=== PATIENT | male | born 1950 | race Caucasian/White ===

== ENCOUNTER → 2020-07-31 09:25 | Outpatient (BNVA) | payer MEDICARE, OTHER, SELFPAY | PROVIDERS: PCP Internal Medicine; Visit Provider Internal Medicine | DX: I48.19 Other persistent atrial fibrillation (principal); Z51.81 Encounter for therapeutic drug level monitoring; Z79.01 Long term (current) use of anticoagulants | CPT/HCPCS: 85610 ==

== ENCOUNTER → 2020-09-06 09:15 | Outpatient (BNVA) | payer MEDICARE, OTHER, SELFPAY | PROVIDERS: PCP Internal Medicine; Visit Provider Internal Medicine | DX: I48.19 Other persistent atrial fibrillation (principal); Z51.81 Encounter for therapeutic drug level monitoring; Z79.01 Long term (current) use of anticoagulants | CPT/HCPCS: 85610; 99211 ==

== ENCOUNTER 2020-09-25 16:08 | Observation (INO) | payer MEDICARE, OTHER, SELFPAY ==
[2020-09-25 16:38] VITALS: BP 105/65; PULSE 61; RESP 16; TEMP 36.7; O2SAT 94; BMI 29.5
--- NOTE | 2020-09-25 17:41 | XR_ITS ---
EXAMINATION: XR CHEST CLINICAL INFORMATION: Chest pain COMPARISON: 11/15/2018 TECHNIQUE: Frontal view of the chest was obtained. FINDINGS: There is no convincing evidence for an acute process. This exam is felt to be comparable to previous. Some calcification in cartilage is once again noted. No obvious failure or infiltrate. There is no effusion. XR/XR chest 1V IMPRESSION: No convincing evidence for an acute process.
--- NOTE | 2020-09-25 17:41 | ECG_ITS ---
Test Reason : TACHY Blood Pressure : / mmHG Vent. Rate : 060 BPM Atrial Rate : 060 BPM P-R Int : 198 ms QRS Dur : 084 ms QT Int : 408 ms P-R-T Axes : 070 019 023 degrees QTc Int : 408 ms Normal sinus rhythm Normal ECG When compared with ECG of 17-DEC-2018 12:59, No significant changes seen Referred By: Delfin Cazares Electronically Signed By:REMY SAAVEDRA MD
[2020-09-25 17:51] LABS: MANUAL DIFF FLAG NO
[2020-09-25 17:55] LABS: Basophils Percent Auto 0.6 % (0-2); Eosinophils Absolute Auto 0.1 X10*3/uL (0.0-0.4); Eosinophils Percent Auto 1.9 % (0-4); Hematocrit 39.4 % (42-52); Imm Gran Abs Auto 0.01 X10*3/uL (0.00-0.03); Imm Gran Pct Auto 0.2 % (0.0-0.4); Lymphocytes Absolute Auto 1.9 X10*3/uL (1.2-4.9); Lymphocytes Percent Auto 36.5 % (20-40); Mean Corpuscular HGB Conc 35.5 g/dl (31.0-36.0); Mean Corpuscular Hemoglobin 32.5 pg (27.0-33.0); Mean Corpuscular Volume 91.4 fL (80-98); Mean Platelet Volume 9.9 fL (9.4-12.4); Monocytes Absolute Auto 0.7 X10*3/uL (0.1-1.2); Monocytes Percent Auto 13.5 % (2-11); Neutrophils Absolute Auto 2.4 X10*3/uL (2.0-8.3); Neutrophils Percent Auto 47.3 % (45-73); Platelet Count 184 X10*3/uL (160-400); Red Blood Count 4.31 X10*6/uL (4.60-5.80); Red Cell Distribution Width 12.8 % (11.0-16.0); White Blood Count 5.1 X10*3/uL (4.8-10.8)
[2020-09-25 18:03] LABS: INTERNATIONAL NORM RATIO 2.3 (0.9-1.1); Prothrombin Time 27.5 SEC (10.8-13.0)
[2020-09-25 18:22] LABS: Troponin-I High Sensitivity 15.5 ng/L (<3.5-35.0)
[2020-09-25 19:19] LABS: Alanine Aminotransferase 17 U/L (0-40); Albumin Level 3.9 g/dL (3.5-5.0); Alkaline Phosphatase 58 U/L (39-117); Anion Gap 13 (12-20); Aspartate Amino Transferase 24 U/L (5-37); Bilirubin Direct 0.4 mg/dL (0.0-0.5); Bilirubin Total 0.9 mg/dL (0.0-1.0); Blood Urea Nitrogen 20 mg/dL (9-16); Calcium 8.9 mg/dL (8.4-10.2); Carbon Dioxide 29 mmol/L (22-29); Chloride 99 mmol/L (96-108); Creatinine Clr Calc Pharmacy 84.9; Estimated Glomerular Filt Rate > 60; Glucose Random 99 mg/dL (60-115); Potassium 4.6 mmol/l (3.3-5.1); Sodium 136 mmol/L (135-145); Total Protein 6.2 g/dL (6.5-8.0)
--- NOTE | 2020-09-25 19:21 | ED_ITS ---
HPI - General Adult General Chief complaint: Dizziness Stated complaint: abnormal labs Time Seen by Provider: 09/25/20 17:09 History of Present Illness HPI narrative: 68-year-old male who presents to emergency department for evaluation of near syncopal episode since yesterday morning. Patient states since yesterday morning he has been feeling lightheaded. He states he feels as if he is going to pass out and he feels very weak. He states that these episodes have been intermittent and he had approximately 5-8 episodes since yesterday. These episodes seem to be worse when he is walking or exerting himself and resolves when he rests. He denies any associated symptoms such as chest pain, neck pain, arm pain, back pain, diaphoresis, nausea or vomiting associated with these episodes of lightheadedness. He states that yesterday he did check his blood pressure when he had an episode at was 90/60 with a pulse of 135. States his blood pressure usually runs 120/70 and his pulse usually is in the 65 range. Today again he felt very lightheaded. He took his blood pressure was 120/80 and his pulse was 1 30-135. Patient states he does have a history of paroxysmal atrial fibrillation and does take Coumadin for this. The patient states that today he tried to walk his dog which is something that he does on a regular basis. He states that he usually walks about 1/4 mi. Today when he wonders what he felt very weak and felt as if he was going to passed out. Related Data Previous Rx's Medication Instructions Recorded warfarin 5 mg tablet 5 mg PO DAILY #90 tab 07/31/20 Allergies Allergy/AdvReac Type Severity Reaction Status Date / Time No Known Allergies Allergy Verified 09/06/20 09:16 [No Known Allergies*] Review of Systems Review of Systems: Yes all other systems are reviewed and are negative Constitutional: Constitutional: Reports as per HPI Eyes: Eyes: Reports as per HPI ENT: Reports as per HPI Cardiovascular: Cardiovascular: Reports as per HPI Respiratory: Respiratory: Reports as per HPI Gastrointestinal: Gastrointestinal: Reports as per HPI Genitourinary: Genitourinary: Reports as per HPI Musculoskeletal: Musculoskeletal: Reports as per HPI Integumentary/Breasts: Skin/Breast: Reports as per HPI Neurologic: Reports as per HPI and Reports Abnormal speech present Psychiatric: Psychiatric: Reports as per HPI Allergic/Immunologic: Allergic/Immunologic: Reports as per HPI [facility] Social History Social History Alcohol intake: never Smoked in Last 30 Days: No Use of substances other than those prescribed or required for medical reasons: No Advance Directives: No Advance Directives Information Provided: No Physical Exam Vital Signs: Vital Signs: Last Vital Signs Temp 98.1 F 09/25/20 19:40 Pulse 58 09/25/20 19:40 Resp 19 09/25/20 19:40 BP 120/61 09/25/20 19:40 Pulse Ox 98 09/25/20 19:40 Body Mass Index 29.5 Const: General: cooperative, no acute distress, alert and awake Orientation/consciousness: oriented to person and oriented to place Limitations: no limitations HENMT: Head: Yes normal to inspection, Yes normocephalic and Yes atraumatic Ears: external ears normal Mouth: Normal oral and palatal mucosa present Throat: Yes posterior oropharynx normal Eyes: General: appearance normal, both eyes and all related structures Periorbital: periorbital findings normal Eyelids: Yes eyelids normal Conjunctivae: conjunctivae normal Sclerae: sclerae normal Corneas: corneas normal Pupils: Equal, round and reactive pupils present Direct Ophthalmoscopy: normal light reflex Neck: Neck: Yes normal visual inspection and Yes supple Lymphatic: no lymphadenopathy noted Chest: Chest palpation & inspection: normal inspection of the chest and normal palpation of entire chest wall Resp: Effort & Inspection: normal respiratory effort, abnormal respiratory pattern, no audible wheezes and no respiratory distress Auscultation: clear to auscultation bilaterally, no crackles, no rales, no rhonchi and no wheezes Cardio: Rate: regular rate Rhythm: regular rhythm Heart sounds: S1 normal heart sound present, S2 normal heart sound present and no murmurs GI: Inspection: No distended Palpation (GI): Soft to palpation, nontender, no guarding and No hepatosplenomegaly present Auscultation: normal bowel sounds : General: Yes no CVA tenderness Back/Spine/Pelvis: Back: no CVA tenderness Skin: General skin exam: no rashes or lesions noted Lesions: no lesions Rashes: no rashes Wounds: no wounds Neuro: General: oriented to person and oriented to place Cranial nerves: Yes CN's II-XII intact bilaterally and Yes Equal, round and reactive pupils present Cognition (Neuro): normal cognition Speech: Abnormal speech present Motor exam (neuro): 5/5 motor strength present throughout Extrem: General: Yes normal to inspection, Yes full ROM, Yes no pedal edema and Yes no calf tenderness Psych: Appearance: grossly normal Mental Status: mental status grossly normal Speech and movement: Clear speech present Affect: normal affect Thought process: Normal thought process present Course Course Course Narrative: 70-year-old male who presents to emergency department for evaluation of multiple near syncopal episodes since yesterday morning. The patient does have history of atrial fibrillation and does take Coumadin. He states that yesterday during 1 of his episodes he took his pulse and it ranged from 130-135. Patient has also had new onset of dyspnea on exertion with no other associated symptoms such as chest pain, neck pain, arm pain, nausea, d iaphoresis. The patient's 12 lead EKG was unremarkable. Patient's laboratory evaluation was also unremarkable with a non elevated troponin. I will discuss the patient's presentation with the covering hospitalist. 1954: I did discuss the patient's presentation with the covering hospitalist and the patient will be admitted observation to [facility] for further evaluation of his multiple near syncopal episodes. Medical Decision Making Lab Data Result diagrams: 09/25/20 17:47 09/25/20 18:49 Labs: Lab Results 09/25/20 09/25/20 09/25/20 Range/Units 17:46 17:46 17:47 WBC 5.1 (4.8-10.8) X10*3/uL RBC 4.31 L (4.60-5.80) X10*6/uL Hgb 14.0 (14.0-18.0) g/dl Hct 39.4 L (42-52) % MCV 91.4 (80-98) fL MCH 32.5 (27.0-33.0) pg MCHC 35.5 (31.0-36.0) g/dl RDW 12.8 (11.0-16.0) % Plt Count 184 (160-400) X10*3/uL MPV 9.9 (9.4-12.4) fL Immature Gran % (Auto) 0.2 (0.0-0.4) % Neut % (Auto) 47.3 (45-73) % Lymph % (Auto) 36.5 (20-40) % [place] % (Auto) 13.5 H (2-11) % Eos % (Auto) 1.9 (0-4) % Baso % (Auto) 0.6 (0-2) % Lymph # (Auto) 1.9 (1.2-4.9) X10*3/uL [place] # (Auto) 0.7 (0.1-1.2) X10*3/uL Eos # (Auto) 0.1 (0.0-0.4) X10*3/uL Baso # (Auto) 0.0 (0.0-0.2) X10*3/uL Abs Immat Gran (auto) 0.01 (0.00-0.03) X10*3/uL Absolute Neuts (auto) 2.4 (2.0-8.3) X10*3/uL Absolute Nucleated RBC 0.000 (0.0-0.012) X10*3/uL Nucleated RBC % (auto) 0.0 (0.0-0.2) /100WBC PT (10.8-13.0) SEC INR (0.9-1.1) Sodium Cancelled Potassium Cancelled Chloride Cancelled Carbon Dioxide Cancelled Anion Gap Cancelled BUN Cancelled Creatinine Cancelled Estim Creat Clear Calc Cancelled Estimated GFR Cancelled Random Glucose Cancelled Calcium Cancelled Total Bilirubin Cancelled Direct Bilirubin Cancelled AST Cancelled ALT Cancelled Alkaline Phosphatase Cancelled Troponin I High Sens 15.5 (<3.5-35.0) ng/L Total Protein Cancelled Albumin Cancelled 09/25/20 09/25/20 Range/Units 17:47 18:49 WBC (4.8-10.8) X10*3/uL RBC (4.60-5.80) X10*6/uL Hgb (14.0-18.0) g/dl Hct (42-52) % MCV (80-98) fL MCH (27.0-33.0) pg MCHC (31.0-36.0) g/dl RDW (11.0-16.0) % Plt Count (160-400) X10*3/uL MPV (9.4-12.4) fL Immature Gran % (Auto) (0.0-0.4) % Neut % (Auto) (45-73) % Lymph % (Auto) (20-40) % [place] % (Auto) (2-11) % Eos % (Auto) (0-4) % Baso % (Auto) (0-2) % Lymph # (Auto) (1.2-4.9) X10*3/uL [place] # (Auto) (0.1-1.2) X10*3/uL Eos # (Auto) (0.0-0.4) X10*3/uL Baso # (Auto) (0.0-0.2) X10*3/uL Abs Immat Gran (auto) (0.00-0.03) X10*3/uL Absolute Neuts (auto) (2.0-8.3) X10*3/uL Absolute Nucleated RBC (0.0-0.012) X10*3/uL Nucleated RBC % (auto) (0.0-0.2) /100WBC PT 27.5 H (10.8-13.0) SEC INR 2.3 H (0.9-1.1) Sodium 136 Potassium 4.6 Chloride 99 Carbon Dioxide 29 Anion Gap 13 BUN 20 H Creatinine 0.93 Estim Creat Clear Calc 84.9 Estimated GFR > 60 Random Glucose 99 Calcium 8.9 Total Bilirubin 0.9 Direct Bilirubin 0.4 AST 24 ALT 17 Alkaline Phosphatase 58 Troponin I High Sens (<3.5-35.0) ng/L Total Protein 6.2 L Albumin 3.9 Discharge Plan Discharge Clinical Impression: Near syncope, DAILEY (dyspnea on exertion) Patient Disposition: Admitted as Observation Prescriptions: No Action warfarin 5 mg tablet 5 mg PO DAILY Qty: 90 RF: 0
[2020-09-25 19:40] VITALS: BP 120/61; PULSE 58; RESP 19; TEMP 36.7; O2SAT 98
--- NOTE | 2020-09-25 19:52 | PM.IMHP ---
History of Present Illness Date of Service: 09/25/20 Chief Complaint: near syncope 70 y/o male with PMHX of HTN, HLP, DM and paroxysmal afib on coumadin s/p cardioversion in 2019 who presented from home due to near syncope episodes. Per history provided by the patient for the past 2-3 days has been havign multiple episodes of feeling like almost passing out , feeling fatigue and dizzy for what needs to rest and after 10 minutes feels better. Reports that has happened even when exercising outside. Denies any episodes of chest pain, SOB, nausea or vomiting. No Loss of consciousness. Per ED one time patient took his BP and pulse and found BP was low 90/60 mmHg and HR of 135 bpm. Patient is known to have PAF on coumadin. EKG on presentation is found to be NSR with controlled HR. INR therapeutic 2.3. Decision for admission given. Patient seen and examined at the bedside, laying down in bed in no acute distress. ROS as above otherwise negative. Physical exam unremarkable. PMHX: HTN, HLP, DM, PAF on coumadin s/p cardioversion in 2019 PSX: Colonoscopy with polypectomy Toxic habits: No hx of alcohol abuse, smoking or IVDA Review of Systems ENT: Reports dizziness Neurologic: Reports as per HPI, Reports Abnormal speech present, Reports dizziness and Reports other (near syncope ) [facility] Social History Alcohol intake: never Smoked in Last 30 Days: No Use of substances other than those prescribed or required for medical reasons: No Advance Directives: No Advance Directives Information Provided: No Meds Allergies Allergy/AdvReac Type Severity Reaction Status Date / Time No Known Allergies Allergy Verified 09/06/20 09:16 [No Known Allergies*] Home Medications Medication Instructions Recorded Confirmed Type doxazosin 2 mg PO BEDTIME 09/25/20 09/25/20 History hydrochlorothiazide 1 tab PO DAILY 09/25/20 09/25/20 History insulin lispro [Humalog U-100 SUBCUT 09/25/20 History Insulin] lisinopril 40 mg PO DAILY 09/25/20 09/25/20 History metoprolol tartrate 25 mg PO BID 09/25/20 09/25/20 History simvastatin 40 mg PO BEDTIME 09/25/20 09/25/20 History Physical Exam Vital Signs and Narrative: Vital Signs: Last Vital Signs Temp 98.1 F 09/25/20 19:40 Pulse 58 09/25/20 19:40 Resp 19 09/25/20 19:40 BP 120/61 09/25/20 19:40 Pulse Ox 98 09/25/20 19:40 Body Mass Index 29.5 Const: General: cooperative, comfortable and no acute distress Orientation/consciousness: oriented to person, oriented to place and oriented to time HENMT: Head: Yes normal to inspection Eyes: General: appearance normal, both eyes and all related structures Neck: Yes normal visual inspection Chest: Chest palpation & inspection: normal inspection of the chest Resp: Effort & Inspection: normal respiratory effort Auscultation: clear to auscultation bilaterally Cardio: Jugular venous distension: no JVD Rate: regular rate Rhythm: regular rhythm Heart sounds: S1 normal heart sound present and S2 normal heart sound present GI: Inspection: Yes normal to inspection Skin: General skin exam: no rashes or lesions noted Neuro: General: oriented to person, oriented to place and oriented to time Cognition (Neuro): normal cognition Speech: Abnormal speech present Extrem: General: Yes normal to inspection Psych: Appearance: grossly normal Results Labs CBC and Chem 7: 09/25/20 17:47 09/25/20 18:49 Labs: Laboratory Results - last 24 hr 09/25/20 09/25/20 09/25/20 17:46 17:46 17:47 MCV 91.4 MCH 32.5 MCHC 35.5 RDW 12.8 Plt Count 184 MPV 9.9 Immature Gran % (Auto) 0.2 Neut % (Auto) 47.3 Lymph % (Auto) 36.5 [place] % (Auto) 13.5 H Eos % (Auto) 1.9 Baso % (Auto) 0.6 Lymph # (Auto) 1.9 [place] # (Auto) 0.7 Eos # (Auto) 0.1 Baso # (Auto) 0.0 Abs Immat Gran (auto) 0.01 Absolute Neuts (auto) 2.4 Absolute Nucleated RBC 0.000 Nucleated RBC % (auto) 0.0 PT INR Anion Gap Cancelled Estim Creat Clear Calc Cancelled Estimated GFR Cancelled Random Glucose Cancelled Calcium Cancelled Total Bilirubin Cancelled Direct Bilirubin Cancelled AST Cancelled ALT Cancelled Alkaline Phosphatase Cancelled Troponin I High Sens 15.5 Total Protein Cancelled Albumin Cancelled 09/25/20 09/25/20 17:47 18:49 MCV MCH MCHC RDW Plt Count MPV Immature Gran % (Auto) Neut % (Auto) Lymph % (Auto) [place] % (Auto) Eos % (Auto) Baso % (Auto) Lymph # (Auto) [place] # (Auto) Eos # (Auto) Baso # (Auto) Abs Immat Gran (auto) Absolute Neuts (auto) Absolute Nucleated RBC Nucleated RBC % (auto) PT 27.5 H INR 2.3 H Anion Gap 13 Estim Creat Clear Calc 84.9 Estimated GFR > 60 Random Glucose 99 Calcium 8.9 Total Bilirubin 0.9 Direct Bilirubin 0.4 AST 24 ALT 17 Alkaline Phosphatase 58 Troponin I High Sens Total Protein 6.2 L Albumin 3.9 Imaging Radiologist's Impressions: Impressions Chest X-Ray 09/25/20 17:41 IMPRESSION: No convincing evidence for an acute process. Assessment and Plan (1) Near syncope: Status: Acute Cardiogenic vs Neurogenic No evidence of neurologic deficit on presenation, No loss of bladder or bowel function. Given hx of patient likely cardiogenic in etiology Observation alarm security or surveillance monitor EKG at present NSR. INR therapeutic Continue with rate control for now 2D echo in the am Cardiology evaluation in the am (2) PAF (paroxysmal atrial fibrillation): Status: Acute plan as above (3) Hypertension: Status: Acute continue with home meds (4) Hyperlipidemia: Status: Acute continue with home meds (5) Diabetes: Status: Acute insulin regimen as ordered POCT glucose AC HS
[2020-09-25 21:10] VITALS: BP 126/55; PULSE 66; RESP 16; TEMP 36.7; O2SAT 100
--- NOTE | 2020-09-25 21:53 | PM.EVENT ---
Event Note Date of Service: 09/25/20 Event Note: update: EKG strips in the ER noticed patient to have an episode of narrow complex tachycardia followed by a pause of 1.6 seconds and then resumed to NSR. Possible tachy-tessa syndrome? Patient did not have any symptoms during this event. Cardio consult in the am.
[2020-09-25 23:58] LABS: Influenza A PCR NEGATIVE (Negative); Influenza B PCR NEGATIVE (Negative); Resp Syncy Virus RNA Qual PCR NEGATIVE (Negative); SARS COV2 PCR INHOUSE NEGATIVE (Negative)
[2020-09-26] VITALS (20 sets, daily range): BP systolic 101–170; BP diastolic 57–92; PULSE 53–123; RESP 12–20; TEMP 36.4–36.9; O2SAT 97–100
--- NOTE | 2020-09-26 01:02 | PC.NURSE ---
Pt resting in bed at this time, calm and cooperative with staff. Denies chest pain/nausea/vomiting. Breathing equal and unlabored. Skin warm and well perfused. Pt with insulin pump in place, pt able to manage setting on own. No distress at this time, remains on patient monitor. Vitals stable. Will continue to monitor. Pt aware of boarding status in ED until bed available inpatient.
--- NOTE | 2020-09-26 01:08 | PC.NURSE ---
2245 on 09/25: Previous nurse collected COVID swab and sent it. This RN signed off after confirming with lab it was collected and resulted.
--- NOTE | 2020-09-26 02:32 | PC.NURSE ---
Addendum entered by Brittnee Davidson 09/26/20 02:33: * Edit: Pt states he did feel lightheaded when standing with increased heart rate. Provider to bedside at this time for eval. Original Note: Pt stood up at bedside to use urinal, heart rate went from 50s to 120-130s with standing. Pt asymptomatic during tachycardia. Pt back to bed and heart rate returned back to 50s. Pt remains asymptomatic at this time. Will continue to monitor.
--- NOTE | 2020-09-26 04:19 | PC.NURSE ---
Pt HR back down to 50s-60s. Remains comfortable, breathing equal and unlabored. Will continue to monitor.
[2020-09-26 06:12] LABS: INTERNATIONAL NORM RATIO 2.2 (0.9-1.1); Prothrombin Time 26.7 SEC (10.8-13.0)
--- NOTE | 2020-09-26 06:15 | PC.NURSE ---
Nurse to nurse given to I[facility] RN. Pt to be transported to floor.
[2020-09-26] MEDS: 0.9 % Sodium Chloride Flush 3 ML SYRINGE IVFLUSH ×3 (07:34→18:36)
[2020-09-26] MEDS: Subcutaneous Insulin Pump 1 EACH SUBCUT ×4 (07:34→20:49)
[2020-09-26 08:35] LABS: Glucose, Whole Blood 122 mg/dL (60-115)
--- NOTE | 2020-09-26 08:40 | MHC.CM.PN ---
TORRES 09/26/20 MALE 70 DX NEAR SYNCOPE. He lives with his . He is independent , no A.D. DP home no services family transport. Pt open to VNA services if required. Requested a copy Of his HCP. CM will follow
[2020-09-26] MEDS: hydroCHLOROthiazide 12.5 MG TABLET PO (09:07)
[2020-09-26] MEDS: lisinopriL 40 MG TABLET PO (09:08)
[2020-09-26 09:52] LABS: Basophils Percent Auto 0.7 % (0-2); Eosinophils Absolute Auto 0.1 X10*3/uL (0.0-0.4); Eosinophils Percent Auto 2.8 % (0-4); Hematocrit 41.4 % (42-52); Hemoglobin 14.1 g/dl (14.0-18.0); Imm Gran Abs Auto 0.03 X10*3/uL (0.00-0.03); Imm Gran Pct Auto 0.7 % (0.0-0.4); Lymphocytes Absolute Auto 1.3 X10*3/uL (1.2-4.9); Lymphocytes Percent Auto 29.9 % (20-40); MANUAL DIFF FLAG NO; Mean Corpuscular HGB Conc 34.1 g/dl (31.0-36.0); Mean Corpuscular Hemoglobin 31.3 pg (27.0-33.0); Mean Corpuscular Volume 91.8 fL (80-98); Mean Platelet Volume 10.2 fL (9.4-12.4); Monocytes Absolute Auto 0.6 X10*3/uL (0.1-1.2); Monocytes Percent Auto 13.4 % (2-11); Neutrophils Absolute Auto 2.3 X10*3/uL (2.0-8.3); Neutrophils Percent Auto 52.5 % (45-73); Platelet Count 174 X10*3/uL (160-400); Red Blood Count 4.51 X10*6/uL (4.60-5.80); Red Cell Distribution Width 12.8 % (11.0-16.0); White Blood Count 4.3 X10*3/uL (4.8-10.8)
[2020-09-26 10:29] LABS: Anion Gap 13 (12-20); Blood Urea Nitrogen 17 mg/dL (9-16); Calcium 8.9 mg/dL (8.4-10.2); Carbon Dioxide 30 mmol/L (22-29); Chloride 97 mmol/L (96-108); Creatinine Clr Calc Pharmacy 99.9; Estimated Glomerular Filt Rate > 60; Glucose Random 219 mg/dL (60-115); Magnesium 1.7 mg/dL (1.6-2.6); Potassium 4.7 mmol/l (3.3-5.1); Sodium 135 mmol/L (135-145)
--- NOTE | 2020-09-26 10:36 | HO.PM.IMPN ---
Subjective Subjective Date of Service: 09/26/20 Interval History: seen and examined this AM reports feeling find this AM. dizziness upon exertion denies chest pain, denies sob, denies palp ROS General - no fevers or chills Cardiovascular - no chest pain, no palp Respiratory - no shortness of breath or cough Abdominal- no abdominal pain, nausea, vomiting, diarrhea Physical Exam Vital Signs: Vital Signs: Last Vital Signs Temp 97.7 F 09/26/20 07:15 Pulse 91 09/26/20 07:15 Resp 20 09/26/20 07:15 BP 149/78 H 09/26/20 07:15 Pulse Ox 98 09/26/20 07:15 Body Mass Index 29.5 Const: Other: General - no acute distress, appears comfortable Cardiovascular - s1s2; a. flutter on tele Lungs - normal respiratory effort, clear to auscultation bilaterally, no wheezing Abdomen - soft, nontender, no rebound or guarding Extremities - no edema bilaterally Neuro - awake and alert, no focal deficits Objective Data Current Medications Generic Name Dose Route Start Last Admin Trade Name Freq PRN Reason Stop Dose Admin Atorvastatin Calcium 20 mg 09/26/20 21:00 Atorvastatin Calcium 20 Mg Tablet PO BEDTIME ANNA Doxazosin Mesylate 2 mg 09/26/20 21:00 Doxazosin Mesylate 2 Mg Tablet PO BEDTIME [facility] Protocol Hydrochlorothiazide 12.5 mg 09/26/20 09:00 09/26/20 09:07 Hydrochlorothiazide 12.5 Mg Tablet PO 12.5 mg DAILY ANNA Administration Protocol Insulin Pump 1 each 09/26/20 07:30 09/26/20 07:34 Subcutaneous Insulin Pump SUBCUT 1 each QIDACHS ANNA Administration Lisinopril 40 mg 09/26/20 09:00 09/26/20 09:08 Lisinopril 40 Mg Tablet PO 40 mg DAILY [facility] Administration Protocol Metoprolol Tartrate 25 mg 09/26/20 10:45 Metoprolol Tartrate 25 Mg Tablet PO BID ANNA Protocol Pharmacy Consult 1 each 09/25/20 19:48 Consult Rx Perform Med Rec MISCELLANE ONCE PRN Consult order Sodium Chloride 3 ml 09/26/20 06:58 09/26/20 09:08 0.9 % Sodium Chloride Flush 3 Ml Syringe IVFLUSH 3 ml QSHIFT ANNA Administration Warfarin Sodium 5 mg 09/26/20 18:00 Warfarin Sodium 5 Mg Tablet PO DAILY@1800 [facility] Labs CBC & Chem 7: 09/26/20 09:03 09/26/20 09:03 Assessment and Plan (1) Near syncope: Status: Acute Assessment and Plan: This is a 70 yo M with a PMH of PAF - s/p cardioversion in the past, on coumadin who presents to the hospital with complaints of dizziness which started on the day before admission. He denies any syncopal episodes or associated chest pain, palpitations, sob. 1. Dizziness/PAF likely cardiac in nature tele showing patient converting back and forth from sinus to flutter, in persistance flutter since this AM continue his metorpolol and coumadin cardiology consult keep npo until evaluated by cardiology in case cardioversion is needed 2. DM uses insulin pump continue, monitor poc qidac 3. HTN stable continue hctz, lisinopril, metoprolol 4. HLD statin Full Code DVT pptx, coumadin
[2020-09-26] MEDS: Metoprolol Tartrate 25 MG TABLET PO ×2 (10:46→20:47)
[2020-09-26] MEDS: Magnesium Oxide 400 MG TABLET 800 MG PO (11:00)
[2020-09-26 11:15] LABS: Glucose, Whole Blood 200 mg/dL (60-115)
--- NOTE | 2020-09-26 11:27 | ECG_ITS ---
Test Reason : CP Blood Pressure : / mmHG Vent. Rate : 071 BPM Atrial Rate : 234 BPM P-R Int : 000 ms QRS Dur : 090 ms QT Int : 382 ms P-R-T Axes : 076 001 009 degrees QTc Int : 415 ms Atrial flutter with variable A-V block Abnormal ECG When compared with ECG of 25-SEP-2020 16:23, Atrial flutter has replaced Sinus rhythm ST now depressed in Inferior leads Referred By: Merlin Ricardo Electronically Signed By:MERLIN RICARDO MD
--- NOTE | 2020-09-26 11:40 | PM.CNCAR ---
History of Present Illness History of Present Illness Date of Service: 09/26/20 Requesting physician: Titi Lewis Chief complaint: NEAR SYNCOPE Narrative: Thank you for inviting us on consult on Abraham for recurrent atrial flutter. He is a pleasant 70-year-old man with prior history of atrial flutter status post cardioversion loss November by Dr. Teixeira for symptomatic atrial flutter. He has been maintained on Coumadin ever since. Last few months his INRs have been therapeutic. He came to the hospital yesterday because over the last 2 weeks he has been noticing symptoms of exertional lightheadedness. He said in the recent time his symptoms have got more frequent. He said he could walk only a short distance going out for walk with his dog and he would notice lightheadedness and when he would come home he would take his pulse and blood pressure in his heart rate will be very high in 130. Then after some time it would quickly drop into the 60s. He therefore came to the hospital yesterday. When he came to the ER he was in normal sinus rhythm. However he was having intermittent episodes atrial flutter. Since this a.m. he has been in persistent atrial flutter and he notices that when he went to the bathroom he noticed again symptoms of lightheadedness and rapid heart rate. He denies any syncopal episodes. Prior to this beginning he says in good functional status and he has not had any symptoms of chest discomfort or shortness of breath with exertion. No neurologic symptoms. No other systemic symptoms. Review of Systems Constitutional: Constitutional: Denies body ache(s), Denies chills, Denies fatigue, Denies fever(s) and Denies poor appetite Eyes: Eyes: Reports no additional eye complaints ENT: Reports system reviewed and no additional complaints, except as documented and Reports dizziness Cardiovascular: Cardiovascular: Denies chest pain, Reports lightheadedness, Denies Loss of Consciousness, Denies orthopnea and Denies paroxysmal nocturnal dyspnea Respiratory: Respiratory: Reports no additional respiratory complaints Gastrointestinal: Gastrointestinal: Reports no additional gastrointestinal complaints Neurologic: Reports system reviewed and no additional complaints, except as documented, Reports as per HPI, Reports dizziness and Reports other (near syncope ) Psychiatric: Psychiatric: Reports no additional psychiatric complaints Endocrine: Endocrine: Reports no additional endocrine complaints and Denies fatigue Allergic/Immunologic: Allergic/Immunologic: Reports no additional allergic/immunologic complaints [facility] Past Medical History Medical History Paroxysmal atrial flutter Social History Social History Household Members: Spouse Alcohol intake: never Smoking Status: Former smoker Tobacco Type: Cigarette Years Smoked: NO Smoked in Last 30 Days: No Patient Interested in Nicotine Replacement: No (QUIT 42 YEARS AGO) Patient Given Instructions on How to Stop Smoking: No Use of substances other than those prescribed or required for medical reasons: No Currently Displaying Signs/Symptoms of Drug Intoxication Withdrawal: No Any prior treatment program specific to substance use: No Have you been hit, kicked, punched, or otherwise hurt by someone within the past year? If so, by whom?: No Do you feel safe in your current relationship?: No Is there a partner from a previous relationship who is making you feel unsafe now?: No Are you made to feel afraid or neglected: No Advance Directives: No Advance Directives Information Provided: No Do you have thoughts of harming others: None service: No Current occupational status: retired [employer] Allergies Allergy/AdvReac Type Severity Reaction Status Date / Time No Known Allergies Allergy Verified 09/06/20 09:16 [No Known Allergies*] Home Medications Medication Instructions Recorded Confirmed Type blood-glucose sensor [Dexcom G6 09/25/20 09/25/20 History Sensor] doxazosin 2 mg PO BEDTIME 09/25/20 09/25/20 History hydrochlorothiazide 1 tab PO DAILY 09/25/20 09/25/20 History insulin lispro [Humalog U-100 SUBCUT 09/25/20 History Insulin] insulin pump-infus. set-meter 09/25/20 09/25/20 History lisinopril 40 mg PO DAILY 09/25/20 09/25/20 History metoprolol tartrate 25 mg PO BID 09/25/20 09/25/20 History simvastatin 40 mg PO BEDTIME 09/25/20 09/25/20 History Physical Exam Vital Signs: Vital Signs: Last Vital Signs Temp 97.6 F 09/26/20 10:59 Pulse 58 09/26/20 10:59 Resp 18 09/26/20 10:59 BP 151/57 H 09/26/20 10:59 Pulse Ox 98 12/02/20 10:59 Body Mass Index 29.5 Const: General: cooperative, comfortable, no acute distress, well developed, alert and awake Nutritional Appearance: overweight Orientation/consciousness: patient oriented x3 Limitations: no limitations HENMT: Head: Yes normal to inspection, Yes normocephalic and Yes atraumatic Eyes: General: appearance normal, both eyes and all related structures Neck: Neck: Yes trachea midline, Yes supple and Yes no JVD Chest: Chest palpation & inspection: normal inspection of the chest Resp: Effort & Inspection: normal respiratory effort Auscultation: clear to auscultation bilaterally Cardio: Palpation: normal PMI Rhythm: abnormal rhythm irregularly irregular Heart sounds: S1 normal heart sound present and S2 normal heart sound present GI: Auscultation: normal bowel sounds Skin: General skin exam: no rashes or lesions noted Neuro: General: patient oriented x3 and no focal motor deficits Extrem: General: Yes no clubbing, cyanosis or edema Psych: Appearance: grossly normal Results Labs and Meds Result diagrams: 09/26/20 09:03 09/26/20 09:03 Lab results: Laboratory Results - last 24 hr 09/25/20 09/25/20 09/25/20 17:46 17:46 17:47 WBC 5.1 RBC 4.31 L Hgb 14.0 Hct 39.4 L MCV 91.4 MCH 32.5 MCHC 35.5 RDW 12.8 Plt Count 184 MPV 9.9 Immature Gran % (Auto) 0.2 Neut % (Auto) 47.3 Lymph % (Auto) 36.5 [place] % (Auto) 13.5 H Eos % (Auto) 1.9 Baso % (Auto) 0.6 Lymph # (Auto) 1.9 [place] # (Auto) 0.7 Eos # (Auto) 0.1 Baso # (Auto) 0.0 Abs Immat Gran (auto) 0.01 Absolute Neuts (auto) 2.4 Absolute Nucleated RBC 0.000 Nucleated RBC % (auto) 0.0 PT INR Sodium Cancelled Potassium Cancelled Chloride Cancelled Carbon Dioxide Cancelled Anion Gap Cancelled BUN Cancelled Creatinine Cancelled Estim Creat Clear Calc Cancelled Estimated GFR Cancelled POC Glucose Random Glucose Cancelled Calcium Cancelled Magnesium Total Bilirubin Cancelled Direct Bilirubin Cancelled AST Cancelled ALT Cancelled Alkaline Phosphatase Cancelled Troponin I High Sens 15.5 Total Protein Cancelled Albumin Cancelled Coronavirus (PCR) Influenza Type A (PCR) Influenza Type B (PCR) RSV RNA Qual (PCR) 09/25/20 09/25/20 09/25/20 17:47 18:49 22:57 WBC RBC Hgb Hct MCV MCH MCHC RDW Plt Count MPV Immature Gran % (Auto) Neut % (Auto) Lymph % (Auto) [place] % (Auto) Eos % (Auto) Baso % (Auto) Lymph # (Auto) [place] # (Auto) Eos # (Auto) Baso # (Auto) Abs Immat Gran (auto) Absolute Neuts (auto) Absolute Nucleated RBC Nucleated RBC % (auto) PT 27.5 H INR 2.3 H Sodium 136 Potassium 4.6 Chloride 99 Carbon Dioxide 29 Anion Gap 13 BUN 20 H Creatinine 0.93 Estim Creat Clear Calc 84.9 Estimated GFR > 60 POC Glucose Random Glucose 99 Calcium 8.9 Magnesium Total Bilirubin 0.9 Direct Bilirubin 0.4 AST 24 ALT 17 Alkaline Phosphatase 58 Troponin I High Sens Total Protein 6.2 L Albumin 3.9 Coronavirus (PCR) NEGATIVE Influenza Type A (PCR) NEGATIVE Influenza Type B (PCR) NEGATIVE RSV RNA Qual (PCR) NEGATIVE 09/26/20 09/26/20 09/26/20 06:01 08:31 09:03 WBC 4.3 L RBC 4.51 L Hgb 14.1 Hct 41.4 L MCV 91.8 MCH 31.3 MCHC 34.1 RDW 12.8 Plt Count 174 MPV 10.2 Immature Gran % (Auto) 0.7 H Neut % (Auto) 52.5 Lymph % (Auto) 29.9 [place] % (Auto) 13.4 H Eos % (Auto) 2.8 Baso % (Auto) 0.7 Lymph # (Auto) 1.3 [place] # (Auto) 0.6 Eos # (Auto) 0.1 Baso # (Auto) 0.0 Abs Immat Gran (auto) 0.03 Absolute Neuts (auto) 2.3 Absolute Nucleated RBC 0.000 Nucleated RBC % (auto) 0.0 PT 26.7 H INR 2.2 H Sodium Potassium Chloride Carbon Dioxide Anion Gap BUN Creatinine Estim Creat Clear Calc Estimated GFR POC Glucose 122 H Random Glucose Calcium Magnesium Total Bilirubin Direct Bilirubin AST ALT Alkaline Phosphatase Troponin I High Sens Total Protein Albumin Coronavirus (PCR) Influenza Type A (PCR) Influenza Type B (PCR) RSV RNA Qual (PCR) 09/26/20 09/26/20 09/26/20 09:03 09:03 11:12 WBC RBC Hgb Hct MCV MCH MCHC RDW Plt Count MPV Immature Gran % (Auto) Neut % (Auto) Lymph % (Auto) Ro[place] % (Auto) Eos % (Auto) Baso % (Auto) Lymph # (Auto) [place] # (Auto) Eos # (Auto) Baso # (Auto) Abs Immat Gran (auto) Absolute Neuts (auto) Absolute Nucleated RBC Nucleated RBC % (auto) PT INR Sodium Cancelled 135 Potassium Cancelled 4.7 Chloride Cancelled 97 Carbon Dioxide Cancelled 30 H Anion Gap Cancelled 13 BUN Cancelled 17 H Creatinine Cancelled 0.79 Estim Creat Clear Calc Cancelled 99.9 Estimated GFR Cancelled > 60 POC Glucose 200 H Random Glucose Cancelled 219 H D Calcium Cancelled 8.9 Magnesium 1.7 Total Bilirubin Direct Bilirubin AST ALT Alkaline Phosphatase Troponin I High Sens Total Protein Albumin Coronavirus (PCR) Influenza Type A (PCR) Influenza Type B (PCR) RSV RNA Qual (PCR) EKG on admission shows normal sinus rhythm with no acute ST T wave changes. EKG this morning shows atrial flutter, atypical with variable conduction. Assessment and Plan (1) Near syncope: Status: Acute Symptoms of lightheadedness with exertion related to rapid atrial flutter. See below for management (2) Atrial flutter: Status: Acute Symptomatic recurrent atrial flutter, persistent now. Patient's symptoms correlate with presence of atrial flutter with rapid ventricular response. Would benefit with rhythm control approach. His INRs have been therapeutic over the last few months in the normal range. Safe to undergo cardioversion with low risk for thromboembolic complication. We discussed the risks, benefits, alternatives 2nd opinion to cardioversion and maintaining rhythm. He understands and agrees. Will try initially with chemical cardioversion with flecainide 150 mg x2 doses if needed. If fails conversion with flecainide oral medication, will pursue electrical synchronized cardioversion later in the afternoon. He had his morning breakfast. Hopefully after 6 hours of NPO can proceed with cardioversion. Risks and benefits were discussed with this. He understands and agrees. Continue warfarin therapy. Continue metoprolol therapy. Will follow with the patient.
[2020-09-26] MEDS: Flecainide Acetate 50 MG TABLET 150 MG PO ×2 (11:55→13:06)
--- NOTE | 2020-09-26 15:44 | P.CONAN_ITS ---
HPI - Anesthesia Eval Consult details Narrative: 70 M for cardioversion [facility] Past Medical History Medical History Paroxysmal atrial flutter Social History Social History Household Members: Spouse Alcohol intake: never Smoking Status: Former smoker Tobacco Type: Cigarette Years Smoked: NO Smoked in Last 30 Days: No Patient Interested in Nicotine Replacement: No (QUIT 42 YEARS AGO) Patient Given Instructions on How to Stop Smoking: No Use of substances other than those prescribed or required for medical reasons: No Currently Displaying Signs/Symptoms of Drug Intoxication Withdrawal: No Any prior treatment program specific to substance use: No Have you been hit, kicked, punched, or otherwise hurt by someone within the past year? If so, by whom?: No Do you feel safe in your current relationship?: No Is there a partner from a previous relationship who is making you feel unsafe now?: No Are you made to feel afraid or neglected: No Advance Directives: No Advance Directives Information Provided: No Do you have thoughts of harming others: None service: No Current occupational status: [employer] Allergies Allergy/AdvReac Type Severity Reaction Status Date / Time No Known Allergies Allergy Verified 09/06/20 09:16 [No Known Allergies*] Home Medications Medication Instructions Recorded Confirmed Type blood-glucose sensor [Dexcom G6 09/25/20 09/25/20 History Sensor] doxazosin 2 mg PO BEDTIME 09/25/20 09/25/20 History hydrochlorothiazide 1 tab PO DAILY 09/25/20 09/25/20 History insulin lispro [Humalog U-100 SUBCUT 09/25/20 History Insulin] insulin pump-infus. set-meter 09/25/20 09/25/20 History lisinopril 40 mg PO DAILY 09/25/20 09/25/20 History metoprolol tartrate 25 mg PO BID 09/25/20 09/25/20 History simvastatin 40 mg PO BEDTIME 09/25/20 09/25/20 History Exam Exam Date and Time: September 26, 2020 1544 Height,Weight and Vital Signs: Height 5 ft 11 in Weight 96.162 kg Last Vital Signs Temp 98.4 F 09/26/20 13:57 Pulse 66 09/26/20 13:57 Resp 18 09/26/20 13:57 BP 139/87 09/26/20 13:57 Pulse Ox 98 09/26/20 13:57 Pertinent Lab Results Pertinent Lab Results: Laboratory Tests 09/25/20 09/25/20 09/25/20 17:46 17:46 17:47 WBC 5.1 RBC 4.31 L Hgb 14.0 Hct 39.4 L MCV 91.4 MCH 32.5 MCHC 35.5 RDW 12.8 Plt Count 184 MPV 9.9 Immature Gran % (Auto) 0.2 Neut % (Auto) 47.3 Lymph % (Auto) 36.5 [place] % (Auto) 13.5 H Eos % (Auto) 1.9 Baso % (Auto) 0.6 Lymph # (Auto) 1.9 [place] # (Auto) 0.7 Eos # (Auto) 0.1 Baso # (Auto) 0.0 Abs Immat Gran (auto) 0.01 Absolute Neuts (auto) 2.4 Absolute Nucleated RBC 0.000 Nucleated RBC % (auto) 0.0 PT INR Sodium Cancelled Potassium Cancelled Chloride Cancelled Carbon Dioxide Cancelled Anion Gap Cancelled BUN Cancelled Creatinine Cancelled Estim Creat Clear Calc Cancelled Estimated GFR Cancelled POC Glucose Random Glucose Cancelled Calcium Cancelled Magnesium Total Bilirubin Cancelled Direct Bilirubin Cancelled AST Cancelled ALT Cancelled Alkaline Phosphatase Cancelled Troponin I High Sens 15.5 Total Protein Cancelled Albumin Cancelled Coronavirus (PCR) Influenza Type A (PCR) Influenza Type B (PCR) RSV RNA Qual (PCR) 09/25/20 09/25/20 09/25/20 17:47 18:49 22:57 WBC RBC Hgb Hct MCV MCH MCHC RDW Plt Count MPV Immature Gran % (Auto) Neut % (Auto) Lymph % (Auto) [place] % (Auto) Eos % (Auto) Baso % (Auto) Lymph # (Auto) [place] # (Auto) Eos # (Auto) Baso # (Auto) Abs Immat Gran (auto) Absolute Neuts (auto) Absolute Nucleated RBC Nucleated RBC % (auto) PT 27.5 H INR 2.3 H Sodium 136 Potassium 4.6 Chloride 99 Carbon Dioxide 29 Anion Gap 13 BUN 20 H Creatinine 0.93 Estim Creat Clear Calc 84.9 Estimated GFR > 60 POC Glucose Random Glucose 99 Calcium 8.9 Magnesium Total Bilirubin 0.9 Direct Bilirubin 0.4 AST 24 ALT 17 Alkaline Phosphatase 58 Troponin I High Sens Total Protein 6.2 L Albumin 3.9 Coronavirus (PCR) NEGATIVE Influenza Type A (PCR) NEGATIVE Influenza Type B (PCR) NEGATIVE RSV RNA Qual (PCR) NEGATIVE 09/26/20 09/26/20 09/26/20 06:01 08:31 09:03 WBC 4.3 L RBC 4.51 L Hgb 14.1 Hct 41.4 L MCV 91.8 MCH 31.3 MCHC 34.1 RDW 12.8 Plt Count 174 MPV 10.2 Immature Gran % (Auto) 0.7 H Neut % (Auto) 52.5 Lymph % (Auto) 29.9 [place] % (Auto) 13.4 H Eos % (Auto) 2.8 Baso % (Auto) 0.7 Lymph # (Auto) 1.3 [place] # (Auto) 0.6 Eos # (Auto) 0.1 Baso # (Auto) 0.0 Abs Immat Gran (auto) 0.03 Absolute Neuts (auto) 2.3 Absolute Nucleated RBC 0.000 Nucleated RBC % (auto) 0.0 PT 26.7 H INR 2.2 H Sodium Potassium Chloride Carbon Dioxide Anion Gap BUN Creatinine Estim Creat Clear Calc Estimated GFR POC Glucose 122 H Random Glucose Calcium Magnesium Total Bilirubin Direct Bilirubin AST ALT Alkaline Phosphatase Troponin I High Sens Total Protein Albumin Coronavirus (PCR) Influenza Type A (PCR) Influenza Type B (PCR) RSV RNA Qual (PCR) 09/26/20 09/26/20 09/26/20 09:03 09:03 11:12 WBC RBC Hgb Hct MCV MCH MCHC RDW Plt Count MPV Immature Gran % (Auto) Neut % (Auto) Lymph % (Auto) [place] % (Auto) Eos % (Auto) Baso % (Auto) Lymph # (Auto) [place] # (Auto) Eos # (Auto) Baso # (Auto) Abs Immat Gran (auto) Absolute Neuts (auto) Absolute Nucleated RBC Nucleated RBC % (auto) PT INR Sodium Cancelled 135 Potassium Cancelled 4.7 Chloride Cancelled 97 Carbon Dioxide Cancelled 30 H Anion Gap Cancelled 13 BUN Cancelled 17 H Creatinine Cancelled 0.79 Estim Creat Clear Calc Cancelled 99.9 Estimated GFR Cancelled > 60 POC Glucose 200 H Random Glucose Cancelled 219 H D Calcium Cancelled 8.9 Magnesium 1.7 Total Bilirubin Direct Bilirubin AST ALT Alkaline Phosphatase Troponin I High Sens Total Protein Albumin Coronavirus (PCR) Influenza Type A (PCR) Influenza Type B (PCR) RSV RNA Qual (PCR) Airway Mallampati Class: II TM Dist: >3cm Neck ROM: Full Loose/Missing/Broken Teeth: No Lungs: nl Assessment and Plan Assessment Anesthesia Assessment: Anesthesia Plan Discussed and Chart Reviewed Final Anesthetic Review NPO: Yes ASA Class: II Final Preanesthetic Review: No Changes in Pt Med Stat, Meds/Allgs Chart Reviewed, Consent Obtained/Reviewed and Anes Risks/Benef Reviewed Patient Risk: Low Procedure Risk: Low Anesthetic Plan Anesthetic Plan: MAC: Disposition: Standard PACU
--- NOTE | 2020-09-26 16:02 | MHC.SHP ---
Pre-Procedural Eval Section A The patient is an INPATIENT: Yes Changes since office visit: No Cold of Flu in the past 2 weeks, No New Medical Problems, No Changes in Medication and No Patient answered all questions The History & Physical has been completed within 30 days and I have reviewed it.: Yes Section B Chief Complaint: NEAR SYNCOPE Allergies: Allergies Allergy/AdvReac Type Severity Reaction Status Date / Time No Known Allergies Allergy Verified 09/06/20 09:16 [No Known Allergies*] Plan Patient has been examined and remains a candidate for the planned procedure
--- NOTE | 2020-09-26 16:21 | P.PNCAR_ITS ---
Cardioversion Procedure Note Cardioversion Date of Procedure: 09/26/2020 Ordering Provider: myself Performing Provider: myself Indication for Procedure: symptomatic persistent atrial flutter Pre-Op Diagnosis: persistent atrial flutter Post-Op Diagnosis: normal sinus rhythm Performed with Transesophageal Echo: No History: see the consult note Consent: Verbal and Written consent was obtained from the patient before starting. The patient was made aware of the risk of synchronized cardioversion including risks, benefits, alternatives and 2nd opinion. Procedure: After consent obtained, - - - -[id number]- pads were attached in AP configuration and the patient was sedated by the anesthesia team. Once adequate sedation achieved, patient was delivered 200 joules of biphasic synchronized energy in anteroposterior configuration Complications: none Impression: converted successfully to sinus rhythm Recommendations: 1. Start flecainide 150 mg b.i.d. for maintenance of rhythm starting tomorrow 2. Continue warfarin therapy, maintain target INR between 2 and 3 3. Stat 12 lead EKG post conversion 4. continue other medications.
--- NOTE | 2020-09-26 16:51 | ECG_ITS ---
Test Reason : s/p cardioversion Blood Pressure : / mmHG Vent. Rate : 055 BPM Atrial Rate : 055 BPM P-R Int : 198 ms QRS Dur : 094 ms QT Int : 452 ms P-R-T Axes : 019 -01 026 degrees QTc Int : 432 ms Sinus bradycardia Otherwise normal ECG When compared with ECG of 26-SEP-2020 11:38, Sinus rhythm has replaced Atrial flutter Referred By: Merlin Ricardo Electronically Signed By:MERLIN RICARDO MD
[2020-09-26 17:43] LABS: Glucose, Whole Blood 106 mg/dL (60-115)
[2020-09-26] MEDS: Warfarin Sodium 5 MG TABLET PO (18:35)
[2020-09-26] MEDS: Atorvastatin Calcium 20 MG TABLET PO (20:47)
[2020-09-26 20:48] LABS: Glucose, Whole Blood 173 mg/dL (60-115)
[2020-09-26] MEDS: Doxazosin Mesylate 2 MG TABLET PO (20:48)
[2020-09-27] MEDS: 0.9 % Sodium Chloride Flush 3 ML SYRINGE IVFLUSH ×2 (00:12→09:37)
[2020-09-27 03:45] VITALS: BP 143/71; PULSE 56; RESP 18; TEMP 36; O2SAT 99
[2020-09-27 06:45] LABS: INTERNATIONAL NORM RATIO 1.9 (0.9-1.1)
[2020-09-27 08:00] VITALS: BP 144/65; PULSE 50; RESP 20; TEMP 36.6; O2SAT 99
--- NOTE | 2020-09-27 09:12 | ECG_ITS ---
Test Reason : HX AFIB Blood Pressure : / mmHG Vent. Rate : 051 BPM Atrial Rate : 051 BPM P-R Int : 140 ms QRS Dur : 096 ms QT Int : 460 ms P-R-T Axes : 000 001 025 degrees QTc Int : 423 ms Sinus bradycardia Otherwise normal ECG When compared with ECG of 26-SEP-2020 16:52, Normal sinus rhythm has replaced atrial flutter Referred By: Merlin Ricardo Electronically Signed By:MERLIN RICARDO MD
--- NOTE | 2020-09-27 09:13 | PM.PNCARD ---
Subjective Subjective Date of Service: 09/27/20 Principal diagnosis: Paroxysmal atrial flutter, near syncope Interval history: Patient status post cardioversion yesterday. Maintaining sinus rhythm. He is feeling extremely well with no episodes of lightheadedness with exertion. His INR this morning is 1.9. Review of Systems Constitutional: Reports no additional constitutional complaints Cardiovascular: Reports no additional cardiovascular complaints Respiratory: Reports no additional respiratory complaints Gastrointestinal: Reports no additional gastrointestinal complaints Reports system reviewed and no additional complaints, except as documented and Reports other (near syncope ) Psychiatric: Reports no additional psychiatric complaints Hematologic/Lymphatic: Reports no additional hematologic/lymphatic complaints Allergic/Immunologic: Reports no additional allergic/immunologic complaints Physical Exam Vital Signs: Last Vital Signs Temp 96.8 F 09/27/20 03:45 Pulse 56 09/27/20 03:45 Resp 18 09/27/20 03:45 BP 143/71 H 09/27/20 03:45 Pulse Ox 99 09/27/20 03:45 Body Mass Index 29.5 Const General: cooperative, comfortable, no acute distress, alert and awake Orientation/consciousness: patient oriented x3 HENMT Head: Yes normocephalic and Yes atraumatic Eyes General: appearance normal, both eyes and all related structures Neck Neck: Yes trachea midline, Yes supple and Yes no JVD Chest Chest palpation & inspection: normal inspection of the chest Resp Effort & Inspection: normal respiratory effort Auscultation: clear to auscultation bilaterally Cardio Palpation: normal PMI Rate: regular rate Rhythm: regular rhythm Heart sounds: S1 normal heart sound present and S2 normal heart sound present GI Auscultation: normal bowel sounds Skin General skin exam: no rashes or lesions noted Neuro General: patient oriented x3 Extrem General: Yes no clubbing, cyanosis or edema Psych Appearance: grossly normal Results Labs and Meds Result diagrams: 09/26/20 09:03 09/26/20 09:03 Lab results: Laboratory Results - last 24 hr 09/26/20 09/26/20 09/26/20 09:03 09:03 09:03 WBC 4.3 L RBC 4.51 L Hgb 14.1 Hct 41.4 L MCV 91.8 MCH 31.3 MCHC 34.1 RDW 12.8 Plt Count 174 MPV 10.2 Immature Gran % (Auto) 0.7 H Neut % (Auto) 52.5 Lymph % (Auto) 29.9 [place] % (Auto) 13.4 H Eos % (Auto) 2.8 Baso % (Auto) 0.7 Lymph # (Auto) 1.3 [place] # (Auto) 0.6 Eos # (Auto) 0.1 Baso # (Auto) 0.0 Abs Immat Gran (auto) 0.03 Absolute Neuts (auto) 2.3 Absolute Nucleated RBC 0.000 Nucleated RBC % (auto) 0.0 PT INR Sodium Cancelled 135 Potassium Cancelled 4.7 Chloride Cancelled 97 Carbon Dioxide Cancelled 30 H Anion Gap Cancelled 13 BUN Cancelled 17 H Creatinine Cancelled 0.79 Estim Creat Clear Calc Cancelled 99.9 Estimated GFR Cancelled > 60 POC Glucose Random Glucose Cancelled 219 H D Calcium Cancelled 8.9 Magnesium 1.7 09/26/20 09/26/20 09/26/20 11:12 17:37 20:42 WBC RBC Hgb Hct MCV MCH MCHC RDW Plt Count MPV Immature Gran % (Auto) Neut % (Auto) Lymph % (Auto) [place] % (Auto) Eos % (Auto) Baso % (Auto) Lymph # (Auto) [place] # (Auto) Eos # (Auto) Baso # (Auto) Abs Immat Gran (auto) Absolute Neuts (auto) Absolute Nucleated RBC Nucleated RBC % (auto) PT INR Sodium Potassium Chloride Carbon Dioxide Anion Gap BUN Creatinine Estim Creat Clear Calc Estimated GFR POC Glucose 200 H 106 173 H Random Glucose Calcium Magnesium 09/27/20 05:37 WBC RBC Hgb Hct MCV MCH MCHC RDW Plt Count MPV Immature Gran % (Auto) Neut % (Auto) Lymph % (Auto) [place] % (Auto) Eos % (Auto) Baso % (Auto) Lymph # (Auto) [place] # (Auto) Eos # (Auto) Baso # (Auto) Abs Immat Gran (auto) Absolute Neuts (auto) Absolute Nucleated RBC Nucleated RBC % (auto) PT 23.0 H INR 1.9 H Sodium Potassium Chloride Carbon Dioxide Anion Gap BUN Creatinine Estim Creat Clear Calc Estimated GFR POC Glucose Random Glucose Calcium Magnesium Progress Note: A&P Assessment and plan (1) Atrial flutter: Status: Acute Assessment and Plan: Recurrent atrial flutter with highly symptomatic episodes. Requiring another synchronized cardioversion yesterday. Since then maintaining sinus rhythm. Feeling extremely well. Will continue aggressively with rhythm control approach. Will need antiarrhythmic drug support. Will start arm flecainide 150 mg b.i.d., already received the 1st dose this morning. Obtain a 12 lead EKG today. His INR is mildly subtherapeutic. Agree with Lovenox bridging till INR is greater than 2. I discussed with patient strongly about switching to direct oral anticoagulant strategy. Will think about it. Will need outpatient stress testing with myocardial perfusion imaging to assess for myocardial ischemia in lieu of using flecainide to make sure this is safe. Holter monitor in 1 weeks time. Will arrange for follow-up with Dr. Teixeira in 2 weeks time. Patient can be discharged home today. Will follow up in the clinic in 2 weeks time. Fall Risk Details Current Medications: Current Medications Generic Name Dose Route Start Last Admin Trade Name Freq PRN Reason Stop Dose Admin Atorvastatin Calcium 20 mg 09/26/20 21:00 09/26/20 20:47 Atorvastatin Calcium 20 Mg Tablet PO 20 mg BEDTIME ANNA Administration Doxazosin Mesylate 2 mg 09/26/20 21:00 09/26/20 20:48 Doxazosin Mesylate 2 Mg Tablet PO 2 mg BEDTIME ANNA Administration Protocol Enoxaparin Sodium 95 mg 09/27/20 08:00 Enoxaparin Sodium 100 Mg/Ml Syringe 1 mg/kg (95 mg) SUBCUT Q12H ANNA Flecainide Acetate 150 mg 09/27/20 09:00 Flecainide Acetate 50 Mg Tablet PO BID ANNA Hydrochlorothiazide 12.5 mg 09/26/20 09:00 09/26/20 09:07 Hydrochlorothiazide 12.5 Mg Tablet PO 12.5 mg DAILY ANNA Administration Protocol Insulin Pump 1 each 09/26/20 07:30 09/26/20 20:49 Subcutaneous Insulin Pump SUBCUT 1 each QIDACHS ANNA Administration Lisinopril 40 mg 09/26/20 09:00 09/26/20 09:08 Lisinopril 40 Mg Tablet PO 40 mg DAILY ANNA Administration Protocol Metoprolol Tartrate 25 mg 09/26/20 10:45 09/26/20 20:47 Metoprolol Tartrate 25 Mg Tablet PO 25 mg BID ANNA Administration Protocol Pharmacy Consult 1 each 09/25/20 19:48 Consult Rx Perform Med Rec MISCELLANE ONCE PRN Consult order Sodium Chloride 3 ml 09/26/20 06:58 09/27/20 00:12 0.9 % Sodium Chloride Flush 3 Ml Syringe IVFLUSH 3 ml QSHIFT ANNA Administration Warfarin Sodium 5 mg 09/26/20 18:00 09/26/20 18:35 Warfarin Sodium 5 Mg Tablet PO 5 mg DAILY@1800 ANNA Administration Time Spent With Patient Time: Total time spent is greater than 50% in coordination of care (as documented) at patient's floor/unit and/or counseling patient: Time with patient: 15 - 24 minutes
[2020-09-27] MEDS: Subcutaneous Insulin Pump 1 EACH SUBCUT ×2 (09:34→12:34)
[2020-09-27] MEDS: Enoxaparin Sodium 100 MG/ML SYRINGE 95 MG SUBCUT (09:37)
[2020-09-27] MEDS: Flecainide Acetate 50 MG TABLET 150 MG PO (09:38)
[2020-09-27] MEDS: lisinopriL 40 MG TABLET PO (09:38)
[2020-09-27 09:39] VITALS: PULSE 56
[2020-09-27] MEDS: hydroCHLOROthiazide 12.5 MG TABLET PO (09:39)
--- NOTE | 2020-09-27 11:39 | MHC.CM.PN ---
IMM 09/27/20 Male 70 DC today. INR due tomorrow, Thursday. Patient is aware and will schedule appointment today. Daily INR, until theraputic. The Patient will go to the lab over the weekend. CM attempted to set up with area Homecare agency, no availability until Thursday. Pt is competent to inject lovenox independently. Family will provide transportation.
[2020-09-27 12:00] VITALS: BP 125/60; PULSE 62; RESP 20; TEMP 35.6; O2SAT 99
[2020-09-27 12:09] LABS: Glucose, Whole Blood 203 mg/dL (60-115)
--- NOTE | 2020-09-27 14:13 | P.DS_ITS ---
DS: Providers Provider Date of admission: 09/25/20 20:57 Primary care physician: Louis Elizabeth MD Consults: 09/26/20 10:43 Consult to Cardiology Routine Consulting Provider: Merlin Ricardo Reason for consultation: dizzness, in a. flutter -- going in / out of sinus DS: Diagnosis Discharge Diagnosis (1) Atrial flutter with rapid ventricular response: Status: Acute (2) Near syncope: Status: Acute DS: Medications Discharge Medications Home Medications: Home Medications Medication Instructions Recorded Confirmed Dexcom G6 Sensor 09/25/20 09/25/20 doxazosin 2 mg PO BEDTIME 09/25/20 09/25/20 hydrochlorothiazide 1 tab PO DAILY 09/25/20 09/25/20 insulin lispro [Humalog U-100 SUBCUT 09/25/20 Insulin] insulin pump-infus. set-meter 09/25/20 09/25/20 lisinopril 40 mg PO DAILY 09/25/20 09/25/20 simvastatin 40 mg PO BEDTIME 09/25/20 09/25/20 Previous Rx's Medication Instructions Recorded warfarin 5 mg tablet 5 mg PO DAILY #90 tab 07/31/20 enoxaparin [Lovenox] 100 mg SUBCUT Q12H 7 Days #14 ml 09/27/20 flecainide 150 mg PO BID #60 tab 09/27/20 metoprolol tartrate 25 mg PO BID #60 tab 09/27/20 DS: Summary Hospital Course Hospital Course: patient presented with symptoms of near syncope and this was attributed to paroxysmal atrial flutter with rapid ventricular response. He was seen by Cardiology on the morning after admission who decided that cardioversion was necessary and patient underwent successful cardioversion. He will be discharged home with flecainide 150 b.i.d. along with his metoprolol and Coumadin. Of note his INR is 1.9 in he will be bridged with Lovenox until INR is therapeutic between 2-3. He will follow-up with the Coumadin clinic tomorrow and will come back to [facility] [place] the weekend if needed if the INRs remain subtherapeutic. Time Spent with Patient Time attestation: Total time spent providing and/or coordinating discharge services: Physical Exam Vital Signs: Vital Signs: Last Vital Signs Temp 96.1 F L 09/27/20 12:00 Pulse 62 09/27/20 12:00 Resp 20 09/27/20 12:00 BP 125/60 09/27/20 12:00 Pulse Ox 99 09/27/20 12:00 Body Mass Index 29.5 General - no acute distress, appears comfortable Cardiovascular - regular rate and rhythm, S1-S2 Lungs - normal respiratory effort, clear to auscultation bilaterally, no w heezing Abdomen - soft, nontender, no rebound or guarding Extremities - no edema bilaterally Neuro - awake and alert, no focal deficits DS: Data Data Completed and Pending Labs on day of discharge: Laboratory Last Values WBC 4.3 X10*3/uL (4.8-10.8) L 09/26/20 09:03 RBC 4.51 X10*6/uL (4.60-5.80) L 09/26/20 09:03 Hgb 14.1 g/dl (14.0-18.0) 09/26/20 09:03 Hct 41.4 % (42-52) L 09/26/20 09:03 MCV 91.8 fL (80-98) 09/26/20 09:03 MCH 31.3 pg (27.0-33.0) 09/26/20 09:03 MCHC 34.1 g/dl (31.0-36.0) 09/26/20 09:03 RDW 12.8 % (11.0-16.0) 09/26/20 09:03 Plt Count 174 X10*3/uL (160-400) 09/26/20 09:03 MPV 10.2 fL (9.4-12.4) 09/26/20 09:03 Immature Gran % (Auto) 0.7 % (0.0-0.4) H 09/26/20 09:03 Neut % (Auto) 52.5 % (45-73) 09/26/20 09:03 Lymph % (Auto) 29.9 % (20-40) 09/26/20 09:03 [place] % (Auto) 13.4 % (2-11) H 09/26/20 09:03 Eos % (Auto) 2.8 % (0-4) 09/26/20 09:03 Baso % (Auto) 0.7 % (0-2) 09/26/20 09:03 Lymph # (Auto) 1.3 X10*3/uL (1.2-4.9) 09/26/20 09:03 [place] # (Auto) 0.6 X10*3/uL (0.1-1.2) 09/26/20 09:03 Eos # (Auto) 0.1 X10*3/uL (0.0-0.4) 09/26/20 09:03 Baso # (Auto) 0.0 X10*3/uL (0.0-0.2) 09/26/20 09:03 Abs Immat Gran (auto) 0.03 X10*3/uL (0.00-0.03) 09/26/20 09:03 Absolute Neuts (auto) 2.3 X10*3/uL (2.0-8.3) 09/26/20 09:03 Absolute Nucleated RBC 0.000 X10*3/uL (0.0-0.012) 09/26/20 09:03 Nucleated RBC % (auto) 0.0 /100WBC (0.0-0.2) 09/26/20 09:03 PT 23.0 SEC (10.8-13.0) H 09/27/20 05:37 INR 1.9 (0.9-1.1) H 09/27/20 05:37 Sodium 135 mmol/L (135-145) 09/26/20 09:03 Sodium Cancelled 09/26/20 09:03 Potassium 4.7 mmol/l (3.3-5.1) 09/26/20 09:03 Potassium Cancelled 09/26/20 09:03 Chloride 97 mmol/L (96-108) 09/26/20 09:03 Chloride Cancelled 09/26/20 09:03 Carbon Dioxide 30 mmol/L (22-29) H 09/26/20 09:03 Carbon Dioxide Cancelled 09/26/20 09:03 Anion Gap 13 (12-20) 09/26/20 09:03 Anion Gap Cancelled 09/26/20 09:03 BUN 17 mg/dL (9-16) H 09/26/20 09:03 BUN Cancelled 09/26/20 09:03 Creatinine 0.79 mg/dL (0.5-1.4) 09/26/20 09:03 Creatinine Cancelled 09/26/20 09:03 Estim Creat Clear Calc 99.9 09/26/20 09:03 Estim Creat Clear Calc Cancelled 09/26/20 09:03 Estimated GFR > 60 09/26/20 09:03 Estimated GFR Cancelled 09/26/20 09:03 POC Glucose 203 mg/dL (60-115) H 09/27/20 11:53 Random Glucose 219 mg/dL (60-115) H D 09/26/20 09:03 Random Glucose Cancelled 09/26/20 09:03 Calcium 8.9 mg/dL (8.4-10.2) 09/26/20 09:03 Calcium Cancelled 09/26/20 09:03 Magnesium 1.7 mg/dL (1.6-2.6) 09/26/20 09:03 Total Bilirubin 0.9 mg/dL (0.0-1.0) 09/25/20 18:49 Direct Bilirubin 0.4 mg/dL (0.0-0.5) 09/25/20 18:49 AST 24 U/L (5-37) 09/25/20 18:49 ALT 17 U/L (0-40) 09/25/20 18:49 Alkaline Phosphatase 58 U/L (39-117) 09/25/20 18:49 Troponin I High Sens 15.5 ng/L (<3.5-35.0) 09/25/20 17:46 Total Protein 6.2 g/dL (6.5-8.0) L 09/25/20 18:49 Albumin 3.9 g/dL (3.5-5.0) 09/25/20 18:49 Coronavirus (PCR) NEGATIVE (Negative) 09/25/20 22:57 Influenza Type A (PCR) NEGATIVE (Negative) 09/25/20 22:57 Influenza Type B (PCR) NEGATIVE (Negative) 09/25/20 22:57 RSV RNA Qual (PCR) NEGATIVE (Negative) 09/25/20 22:57 Discharge Plan Discharge Patient Disposition: Home, Self-Care Referrals: [facility] [Other] (Thursday INR) Louis Elizabeth MD [Primary Care Provider] - Discharge Medications: New flecainide 50 mg Tablet 150 mg PO BID Qty: 60 RF: 0 metoprolol tartrate 25 mg Tablet 25 mg PO BID Qty: 60 RF: 0 enoxaparin [Lovenox] 100 mg/mL syringe 100 mg subcut Q12H 7 Days Qty: 14 RF: 0 Continued simvastatin 40 mg tablet 40 mg PO BEDTIME RF: 0 insulin lispro [Humalog U-100 Insulin] 100 unit/mL solution subcut RF: 0 lisinopril 40 mg tablet 40 mg PO DAILY RF: 0 doxazosin 2 mg tablet 2 mg PO BEDTIME RF: 0 hydrochlorothiazide 12.5 mg tablet 1 tab PO DAILY RF: 0 (DME) Dexcom G6 Sensor Device MISCELLANEOUS DAILY RF: 0 (DME) insulin pump-infus. set-meter RF: 0 warfarin 5 mg tablet 5 mg PO DAILY Qty: 90 RF: 0 Discontinued metoprolol tartrate 25 mg tablet 25 mg PO BID RF: 0 Discharge Orders: Discharge Order (Routine); Ordered 09/27/20 Ordered By: Titi Lewis Diet: advance to usual diet Activity on Discharge: As tolerated Discharge Date/Time: 09/27/20 14:14 Other Ambulatory Orders: Prothrombin Time INR (Routine) Timeframe: 20200929 Facility: [facility] - Location: Laboratory Ordered By: Titi Lewis Prothrombin Time INR (Routine) Timeframe: 20200929 Facility: [facility] - Location: Laboratory Ordered By: Titi Lewis Visit Report Forms: Patient Portal Discharge page Care Plan Goals: To stay healthy and out of the hospital. Health Concerns: A. Fib / Flutter Plan of Treatment: A. Fib / Flutter - Take Flecainide 150 mg twice daily. Take Lovenox along with you were Coumadin until your INR levels are between 2 and 3 on 2 consecutive days. After this you may stop Lovenox and continue Coumadin alone.
--- NOTE | 2020-09-27 14:54 | HO.POSTANES ---
Post Anesthesia Evaluation Post Anesthesia Evaluation Vital Signs: Vital Signs Temp Pulse Resp BP Pulse Ox 09/27/20 12:00 96.1 F L 62 20 125/60 99 09/27/20 09:39 56 09/27/20 08:00 97.8 F 50 20 144/65 H 99 09/27/20 03:45 96.8 F 56 18 143/71 H 99 Anesthesia: Monitored Mental Status: Awake Pain Control: Satisfactory Nausea/Vomiting: None Hydration: Adequate Anesthesia-Related Issues: No Anes. Related Issues
== END 2020-09-27 14:14 | disposition home or self-care (01) ==
LOC: HO.ED 19:56 → HO.IMC 09-26 04:36
PROVIDERS: Internal Medicine Cardiovascular Disease; Admitting Provider Internal Medicine; Emergency Provider Emergency Medicine Emergency Medical Services; PCP Internal Medicine; Visit Provider Family Medicine
PROC: 5A2204Z Restoration of Cardiac Rhythm, Single (ICD-10-PCS; principal; 2020-09-26 14:30)
DX: R55 Syncope and collapse (principal); I48.3 Typical atrial flutter; I48.19 Other persistent atrial fibrillation; R07.9 Chest pain, unspecified; I10 Essential (primary) hypertension; E78.5 Hyperlipidemia, unspecified; E11.9 Type 2 diabetes mellitus without complications; Z20.828 Contact with and (suspected) exposure to other viral communicable diseases; Z87.891 Personal history of nicotine dependence; Z98.890 Other specified postprocedural states; Z79.01 Long term (current) use of anticoagulants; Z79.4 Long term (current) use of insulin; Z96.41 Presence of insulin pump (external) (internal); Z79.899 Other long term (current) drug therapy; R00.1 Bradycardia, unspecified
CPT/HCPCS: 0241U; 36415; 71045; 80048; 80076; 82947; 83735; 84484; 85025; 85610; 92960; 93005; 99219; 99285; J1650

== ENCOUNTER → 2020-09-28 10:53 | Outpatient (BNVA) | payer MEDICARE, OTHER, SELFPAY | PROVIDERS: PCP Internal Medicine; Visit Provider Internal Medicine | DX: I48.19 Other persistent atrial fibrillation (principal); Z51.81 Encounter for therapeutic drug level monitoring; Z79.01 Long term (current) use of anticoagulants | CPT/HCPCS: 85610; 99211 ==

== ENCOUNTER → 2020-10-04 11:29 | Outpatient (REF) | payer MEDICARE, OTHER, SELFPAY | LOC: HO.CARD 11:29 | PROVIDERS: Absent Provider Internal Medicine Cardiovascular Disease; PCP Internal Medicine; Referring Provider Internal Medicine; Visit Provider Internal Medicine | DX: I48.92 Unspecified atrial flutter (principal); R00.1 Bradycardia, unspecified; I10 Essential (primary) hypertension; Z79.899 Other long term (current) drug therapy; Z79.01 Long term (current) use of anticoagulants; Z79.4 Long term (current) use of insulin; Z87.891 Personal history of nicotine dependence | CPT/HCPCS: 85610; 93005; 99211; 99212 ==

== ENCOUNTER → 2020-10-08 11:26 | Outpatient (REF) | payer MEDICARE, OTHER, SELFPAY ==
--- NOTE | 2020-10-08 11:29 | ECG_ITS ---
Hook-up date: 2020-10-08 11:48:00 Duration: 27:07:00 Test Indications: PAF Medications: 04298 QRS complexes 15 Ventricular ectopics which represent <1 % of total QRS comp. 3 Supraventricular ectopics which represent <1 % of total QRS comp. * Paced QRS complexs which represent % of total QRS comp. VENTRICULAR ECTOPY 15 Isolated 0 Bigeminal Cycles 0 Couplets 0 Runs 0 Beats in Runs * Beats LONGEST at * BPM at :: -- * Beats FASTEST at * BPM at :: -- SUPRAVENTRICULAR ECTOPY 3 Isolated 0 Couplets 0 Runs 0 Beats in Runs * Beats LONGEST at * BPM at :: -- * Beats FASTEST at * BPM at :: -- HEART RATES 39 MIN at 16:21:06 2020-10-08 50 AVG 77 MAX at 14:51:15 2020-10-08 LONGEST RR 1.6960 secs at 16:22:33 2020-10-08 S-T LEVELS Channel 1 - 128 mm at 11:48:00 2020-10-08 - 128 mm at 11:48:00 2020-10-08 Channel 2 - 128 mm at 11:48:00 2020-10-08 - 128 mm at 11:48:00 2020-10-08 Channel 3 - 128 mm at 03:10:71 -- - 128 mm at 03:10:71 Basic rhythm Normal sinus rhythm No long pause or profound bradycardia Frequent Sinus bradycardia Rare Premature ventricular complexes No diary submitted Referred By: Merlin Ricardo Overread By: MERLIN RICARDO MD
== END ==
LOC: HO.CARD 11:26
PROVIDERS: Visit Provider Internal Medicine Cardiovascular Disease
DX: I48.0 Paroxysmal atrial fibrillation (principal); R06.00 Dyspnea, unspecified; R55 Syncope and collapse
CPT/HCPCS: 93226

== ENCOUNTER → 2020-10-17 10:47 | Outpatient (REF) | payer MEDICARE, OTHER, SELFPAY ==
--- NOTE | 2020-10-17 10:51 | CA_ITS ---
Transthoracic Echocardiogram Patient (Last, First, Middle): Abrahma Vera J Gender: Male Date of : 1950 Age: 70 Procedure Date: 10/17/2020 Procedure Type: Transthoracic Echocardiogram Location: OP Height: 180.34 cm Weight: 95.26 kg BSA: 2.15 m2 Heart Rate: bpm BP: 130 / 80 mmHg Sister Superior: [facility] MD: Jareth Teixeira MD Jacquard Lace Weaver: Merlin Ricardo MD Symptoms: I48.92 - Unspecified atrial flutter Study Quality: Fair ECG Rhythm: Sinus Conclusions: - 1. Normal LV systolic function with grade 2 diastolic dysfunction 2. Moderately dilated left atrium 3. Mild mitral regurgitation 4. [id number]-xi-[id number] elevation of right ventricular systolic pressure 5. No pericardial effusion Findings Procedure Information Contrast agent, definity, is being given per protocol without apparent complications. Left Ventricle Normal left ventricular size, thickness, and systolic function. The visually estimated ejection fraction is between 55-60%. Spectral Doppler is indicative of a pseudonormal filling pattern. E/E prime ratio is >15, consistent with elevated filling pressures. Evidence suggests grade II (moderate) diastolic dysfunction. Right Ventricle Normal right ventricular cavity size and systolic function. Atria The left atrium is moderately dilated. There is lipomatous hypertrophy of the interatrial septum. There is no evidence of interatrial shunt. The right atrium is likely dilated. Aortic Valve Normal aortic valve structure and function. There is no aortic valve stenosis. There is trace (trivial) aortic valve regurgitation. Mitral Valve There is mild anterior and posterior mitral leaflet thickening. There is mild mitral valve regurgitation. There is no mitral valve stenosis. Tricuspid Valve Normal tricuspid valve structure. There is mild tricuspid valve regurgitation. Normal right atrial pressure. Mild to moderate pulmonary hypertension is present. Great Vessels All visible segments of the aorta are normal in size. The pulmonary artery was not well visualized. Venous The inferior vena cava is normal in size and collapses greater than 50% with inspiration. Pericardium/Pleural There is no evidence of pericardial effusion. Prior Study Comparison Changes noted compared to prior study dated: 06/15/2020. LV systolic function has marginally improved Left atrium is moderately enlarged RV systolic pressure is mildly to moderately increased Measurements 2D Linear Measurements RVIDd: 3.77 RVIDd Index: 1.75 IVSd: 0.86 0.6-0.9/0.6-1.0 cm LVIDd: 6.38 3.9-5.3/4.2-5.9 cm LVIDd Index: 2.97 2.4-3.2/2.2-3.1 cm/m2 LVIDs: 4.90 2.0-3.6 cm LVPWd: 0.89 0.7-1.1 cm Ao Root: 3.60 2.1-3.5 cm LA Diam: 5.20 2.7-3.8/3.0-4.0 cm LAIDs Index: 2.42 1.5-2.3 cm/m2 LV Mass: 289.40 67-162/88-224 g LV Mass Index: 134.60 43-95/49-115 g/m2 LVOT Diam: 2.20 3.0+(-)1.3 cm 2D Systolic Function EF 4C: 46.00 >55% EF 2C: 75.00 >55% EF BiP: 62.50 >55% Mitral Valve MV Pk E: 0.88 MV PK A: 0.70 MV Decel Time: 174.00 E/A: 1.20 E'Lateral: 6.09 E'Medial: 4.68 E/E' Med: 18.70 E/E' Lat: 14.40 Aortic Valve AoV Pk Ty: 1.48 AoV Mn Ty: 1.05 AoV VTI: 0.45 AoV Pk Grad: 9.00 Aov Mn Grad: 5.00 VINOD Cont.VTI: 2.77 LVOT LVOT Pk Ty: 1.07 LVOT Mn Ty: 0.78 LVOT VTI: 0.33 LVOT Pk Grad: 5.00 LVOT Mn Grad: 3.00 LVOT Diam: 2.20 LVOT Area: 3.80 Diastolic Function MV Pk E: 0.88 MV Pk A: 0.70 E/A: 1.20 E'Medial: 4.68 E/E' Med: 18.70 E' Laterial: 6.09 E/E' Lat: 14.40 Tricuspid Valve TR Pk Ty: 3.03 TR Pk Grad: 37.00 RA Press: 8.00 RVSP: 45.00 Great Vessels Aorta Ao Root-2D: 3.60 2.0-3.7 cm Ao Asc: 3.40 2.1-3.4 cm Ao Arch: 3.00 Updated in Other Vendor System with Status of Final Merlin Ricardo MD electronically signed on 10/18/2020 2:13:27 PM with status of Final
== END ==
LOC: HO.CARD 10:47
PROVIDERS: Visit Provider Internal Medicine
DX: I48.92 Unspecified atrial flutter (principal); I25.10 Atherosclerotic heart disease of native coronary artery without angina pectoris
CPT/HCPCS: 93306; Q9957

== ENCOUNTER → 2020-10-29 07:49 | Outpatient (REF) | payer MEDICARE, OTHER, SELFPAY ==
--- NOTE | 2020-10-29 | NM_ITS ---
Myocardial perfusion study Indication: Paroxysmal atrial fibrillation to evaluate for myocardial ischemia flecainide therapy Technique: The patient was brought in for a Lexiscan perfusion study on 10/29/2020. Patient performed low-level exercise and was injected 0.4 mg of Lexiscan intravenously. Within a minute of injection, 35 mCi of sestamibi was given intravenously. Images were obtained using the SPECT gamma camera interlaced with the gating device. Images were obtained in supine position. Resting perfusion study was performed on 10/30/2020. Patient was administered 35 mCi of sestamibi intravenously at rest. Images were then obtained in supine position. Images obtained with and without CT attenuation. Total DLP 79 mGy-cm Images were processed with the software and compared side to side in short axis, horizontal long axis and vertical long axis views. Findings: The stress perfusion study showed non attenuated images show normal uptake of radiotracer in all segments of LV myocardium. Attenuation corrected images show mildly reduced uptake in the apex of the LV myocardium. The gated study shows normal LV systolic function with calculated LVEF of 71%. LV cavity is normal in size. The gated study shows normal systolic wall thickening and contraction of segments. Resting study shows no change in perfusion pattern compared to stress perfusion study. Gating at rest reveals normal systolic wall motion with ejection fraction at 70%. The findings are consistent with normal myocardial perfusion. NM/NM vanita perf SPECT rest & str Impression: 1. Myocardial perfusion imaging study shows normal myocardial perfusion 2. Gated LVEF is 70% 3. Transient ischemic dilatation not present EKG nondiagnostic for ischemia
--- NOTE | 2020-10-29 07:53 | CA_ITS ---
Acquisition Time: 2020-10-29 07:58:35 Total Exercise Time: 00:02:00 Test Indications: AFLUTTER Medications: SEE CHART Protocol: LEXISCAN Max HR: 061 BPM 41% of Pred: 148 BPM Max BP: 124/064 mmHG Max Work Load: 1.0 METS Pharmacological stress test using Lexiscan while sitting and kicking his feet. Pt tolerated well. Denies any anginal sx. EKG without any arrhythmias. Non-diagnostic for ischemia. Nuclear images to follow. Normotensive response to test. Test reviewed with Dr. Teixeira. Referred By: Merlin Ricardo Overread By: Mikael Burden
== END ==
LOC: HO.CARD 07:49
PROVIDERS: PCP Internal Medicine; Visit Provider Internal Medicine Cardiovascular Disease
DX: R06.00 Dyspnea, unspecified (principal); I48.0 Paroxysmal atrial fibrillation; I10 Essential (primary) hypertension; R55 Syncope and collapse
CPT/HCPCS: 78452; 93017; A9500; J0280; J2785

== ENCOUNTER → 2020-11-01 11:07 | Outpatient (BNVA) | payer MEDICARE, OTHER, SELFPAY | PROVIDERS: PCP Internal Medicine; Visit Provider Internal Medicine | DX: I48.19 Other persistent atrial fibrillation (principal); Z79.01 Long term (current) use of anticoagulants; Z51.81 Encounter for therapeutic drug level monitoring | CPT/HCPCS: 85610; 99211 ==

== ENCOUNTER → 2020-11-19 09:24 | Outpatient (BNVA) | payer MEDICARE, OTHER, SELFPAY | PROVIDERS: PCP Internal Medicine; Visit Provider Internal Medicine | DX: I48.92 Unspecified atrial flutter (principal); R00.1 Bradycardia, unspecified; I10 Essential (primary) hypertension; Z51.81 Encounter for therapeutic drug level monitoring; Z79.899 Other long term (current) drug therapy | CPT/HCPCS: 99212 ==

== ENCOUNTER → 2020-11-29 11:01 | Outpatient (BNVA) | payer MEDICARE, OTHER, SELFPAY | PROVIDERS: PCP Internal Medicine; Visit Provider Internal Medicine | DX: I48.19 Other persistent atrial fibrillation (principal); Z51.81 Encounter for therapeutic drug level monitoring; Z79.01 Long term (current) use of anticoagulants | CPT/HCPCS: 85610; 99211 ==

== ENCOUNTER 2020-12-04 14:25 | Outpatient (REF) | payer MEDICARE, OTHER, SELFPAY ==
[2020-12-04 15:14] LABS: Influenza A PCR NEGATIVE (Negative); Influenza B PCR NEGATIVE (Negative); Resp Syncy Virus RNA Qual PCR NEGATIVE (Negative); SARS COV2 PCR INHOUSE NEGATIVE (Negative)
== END 2020-12-04 14:26 | disposition home or self-care (01) ==
LOC: HO.LNP 14:25
PROVIDERS: Visit Provider Internal Medicine
DX: Z20.822 Contact with and (suspected) exposure to COVID-19 (principal)
CPT/HCPCS: 0241U

== ENCOUNTER → 2020-12-06 10:37 | Outpatient (BNVA) | payer MEDICARE, OTHER, SELFPAY | PROVIDERS: PCP Internal Medicine; Visit Provider Internal Medicine | DX: I48.19 Other persistent atrial fibrillation (principal); Z51.81 Encounter for therapeutic drug level monitoring; Z79.01 Long term (current) use of anticoagulants | CPT/HCPCS: 85610; 99211 ==

== ENCOUNTER → 2020-12-18 10:26 | Outpatient (BNVA) | payer MEDICARE, OTHER, SELFPAY | PROVIDERS: PCP Internal Medicine; Visit Provider Internal Medicine | DX: I48.92 Unspecified atrial flutter (principal); R00.1 Bradycardia, unspecified; I10 Essential (primary) hypertension | CPT/HCPCS: 93005; 99212 ==

== ENCOUNTER 2021-01-01 10:07 | Outpatient (REF) | payer MEDICARE, OTHER, SELFPAY ==
[2021-01-01 10:41] LABS: MANUAL DIFF FLAG NO
[2021-01-01 10:52] LABS: Basophils Percent Auto 0.7 % (0-2); Eosinophils Absolute Auto 0.2 X10*3/uL (0.0-0.4); Hematocrit 38.2 % (42-52); Hemoglobin 13.2 g/dl (14.0-18.0); Imm Gran Abs Auto 0.02 X10*3/uL (0.00-0.03); Imm Gran Pct Auto 0.5 % (0.0-0.4); Lymphocytes Absolute Auto 1.5 X10*3/uL (1.2-4.9); Mean Corpuscular HGB Conc 34.6 g/dl (31.0-36.0); Mean Corpuscular Hemoglobin 31.3 pg (27.0-33.0); Mean Corpuscular Volume 90.5 fL (80-98); Mean Platelet Volume 9.7 fL (9.4-12.4); Monocytes Absolute Auto 0.7 X10*3/uL (0.1-1.2); Monocytes Percent Auto 15.6 % (2-11); Neutrophils Absolute Auto 1.9 X10*3/uL (2.0-8.3); Neutrophils Percent Auto 43.2 % (45-73); Platelet Count 173 X10*3/uL (160-400); Red Blood Count 4.22 X10*6/uL (4.60-5.80); Red Cell Distribution Width 13.2 % (11.0-16.0); White Blood Count 4.4 X10*3/uL (4.8-10.8)
[2021-01-01 10:56] LABS: Estimated Average Glucose 134 mg/dL; Hemoglobin A1c % 6.3 %
[2021-01-01 11:11] LABS: Alanine Aminotransferase 12 U/L (0-40); Alkaline Phosphatase 57 U/L (39-117); Anion Gap 11 (12-20); Aspartate Amino Transferase 20 U/L (5-37); Bilirubin Total 0.6 mg/dL (0.0-1.0); Blood Urea Nitrogen 15 mg/dL (9-16); Calcium 9.2 mg/dL (8.4-10.2); Carbon Dioxide 30 mmol/L (22-29); Chloride 97 mmol/L (96-108); Cholesterol 161 mg/dL; Estimated Glomerular Filt Rate > 60; Glucose Fasting 120 mg/dL (60-99); HDL Cholesterol 84 mg/dL; LDL Cholesterol Calculated 70 mg/dl; Sodium 133 mmol/L (135-145); Total Protein 6.4 g/dL (6.5-8.0); Triglycerides 35 mg/dL
[2021-01-01 11:31] LABS: Prostate Specific Antigen 0.77 ng/mL (<0.05-4.0)
[2021-01-01 11:37] LABS: Creatinine Urine 56.45 mg/dL; Microalbum/Creatinine Ratio Ur 10.6 ug/mg cr
== END 2021-01-01 10:08 | disposition home or self-care (01) ==
LOC: HO.LAB 10:07
PROVIDERS: PCP Internal Medicine; Visit Provider Internal Medicine
DX: I48.0 Paroxysmal atrial fibrillation (principal); E11.9 Type 2 diabetes mellitus without complications; I10 Essential (primary) hypertension; E78.00 Pure hypercholesterolemia, unspecified; R35.1 Nocturia; Z79.4 Long term (current) use of insulin; Z12.5 Encounter for screening for malignant neoplasm of prostate
CPT/HCPCS: 36415; 80053; 80061; 82043; 83036; 84153; 85025

== ENCOUNTER → 2021-01-11 14:04 | Outpatient (BNVA) | payer MEDICARE, OTHER, SELFPAY | PROVIDERS: PCP Internal Medicine; Visit Provider Internal Medicine | DX: I48.19 Other persistent atrial fibrillation (principal); Z51.81 Encounter for therapeutic drug level monitoring; Z79.01 Long term (current) use of anticoagulants | CPT/HCPCS: 85610; 99211 ==

== ENCOUNTER → 2021-02-08 09:54 | Outpatient (BNVA) | payer MEDICARE, OTHER, SELFPAY | PROVIDERS: PCP Internal Medicine; Visit Provider Internal Medicine | DX: I48.19 Other persistent atrial fibrillation (principal); Z79.01 Long term (current) use of anticoagulants; Z51.81 Encounter for therapeutic drug level monitoring | CPT/HCPCS: 85610; 99211 ==

== ENCOUNTER → 2021-03-08 09:54 | Outpatient (BNVA) | payer MEDICARE, OTHER, SELFPAY | PROVIDERS: PCP Internal Medicine; Visit Provider Internal Medicine | DX: I48.19 Other persistent atrial fibrillation (principal); Z51.81 Encounter for therapeutic drug level monitoring; Z79.01 Long term (current) use of anticoagulants | CPT/HCPCS: 85610; 99211 ==

== ENCOUNTER → 2021-04-05 10:21 | Outpatient (BNVA) | payer MEDICARE, OTHER, SELFPAY | PROVIDERS: PCP Internal Medicine; Visit Provider Internal Medicine | DX: I48.19 Other persistent atrial fibrillation (principal); Z51.81 Encounter for therapeutic drug level monitoring; Z79.01 Long term (current) use of anticoagulants | CPT/HCPCS: 85610; 99211 ==

== ENCOUNTER 2021-05-03 09:45 | Outpatient (REF) | payer MEDICARE, OTHER, SELFPAY ==
[2021-05-03 10:44] LABS: MANUAL DIFF FLAG NO
[2021-05-03 10:51] LABS: Basophils Percent Auto 0.6 % (0-2); Eosinophils Absolute Auto 0.2 X10*3/uL (0.0-0.4); Eosinophils Percent Auto 4.1 % (0-4); Hematocrit 38.9 % (42-52); Hemoglobin 13.5 g/dl (14.0-18.0); Lymphocytes Absolute Auto 1.5 X10*3/uL (1.2-4.9); Lymphocytes Percent Auto 32.9 % (20-40); Mean Corpuscular HGB Conc 34.7 g/dl (31.0-36.0); Mean Corpuscular Hemoglobin 30.9 pg (27.0-33.0); Mean Platelet Volume 9.9 fL (9.4-12.4); Monocytes Absolute Auto 0.7 X10*3/uL (0.1-1.2); Monocytes Percent Auto 14.5 % (2-11); Neutrophils Absolute Auto 2.2 X10*3/uL (2.0-8.3); Neutrophils Percent Auto 47.9 % (45-73); Platelet Count 203 X10*3/uL (160-400); Red Blood Count 4.37 X10*6/uL (4.60-5.80); Red Cell Distribution Width 12.9 % (11.0-16.0); White Blood Count 4.6 X10*3/uL (4.8-10.8)
[2021-05-03 11:13] LABS: Estimated Average Glucose 140 mg/dL; Hemoglobin A1c % 6.5 %
[2021-05-03 11:14] LABS: Creatinine Urine 44.29 mg/dL; Microalbumin Urine < 5.0 mg/L
[2021-05-03 11:18] LABS: Anion Gap 11 (12-20); Blood Urea Nitrogen 12 mg/dL (9-16); Calcium 9.4 mg/dL (8.4-10.2); Carbon Dioxide 30 mmol/L (22-29); Chloride 92 mmol/L (96-108); Estimated Glomerular Filt Rate > 60; Glucose Random 167 mg/dL (60-115); Potassium 4.9 mmol/L (3.3-5.1); Sodium 128 mmol/L (135-145)
== END 2021-05-03 09:46 | disposition home or self-care (01) ==
LOC: HO.LAB 09:45
PROVIDERS: PCP Internal Medicine; Visit Provider Internal Medicine
DX: D64.9 Anemia, unspecified (principal); Z51.81 Encounter for therapeutic drug level monitoring; Z79.01 Long term (current) use of anticoagulants
CPT/HCPCS: 36415; 80048; 82043; 83036; 85025; 85610; 99211

== ENCOUNTER → 2021-05-27 12:44 | Outpatient (REF) | payer MEDICARE, OTHER, SELFPAY ==
--- NOTE | 2021-05-27 12:47 | ECG_ITS ---
Hook-up date: 2021-05-27 13:16:00 Duration: 24:59:00 Test Indications: PAF Medications: 40478 QRS complexes 13 Ventricular ectopics which represent <1 % of total QRS comp. 65 Supraventricular ectopics which represent <1 % of total QRS comp. * Paced QRS complexs which represent % of total QRS comp. VENTRICULAR ECTOPY 13 Isolated 0 Bigeminal Cycles 0 Couplets 0 Runs 0 Beats in Runs * Beats LONGEST at * BPM at :: -- * Beats FASTEST at * BPM at :: -- SUPRAVENTRICULAR ECTOPY 65 Isolated 0 Couplets 0 Runs 0 Beats in Runs * Beats LONGEST at * BPM at :: -- * Beats FASTEST at * BPM at :: -- HEART RATES 39 MIN at 05:09:37 2021-05-28 56 AVG 99 MAX at 17:03:39 2021-05-27 LONGEST RR 1.6800 secs at 08:59:15 2021-05-28 S-T LEVELS Channel 1 - 128 mm at 13:16:00 2021-05-27 - 128 mm at 13:16:00 2021-05-27 Channel 2 - 128 mm at 13:16:00 2021-05-27 - 128 mm at 13:16:00 2021-05-27 Channel 3 - 128 mm at 03:23:51 -- - 128 mm at 03:23:51 Underlying rhythm is sinus bradycardia; Average ventricular rate 56/min; range 39-99/min; Rare Premature atrial complexes , Premature ventricular complexes ; No sustained arrhythmias; Patient did not report any symptoms in the diary Referred By: Basilio Deluna Overread By: BASILIO DELUNA
== END ==
LOC: HO.CARD 12:44
PROVIDERS: Visit Provider Internal Medicine
DX: I48.92 Unspecified atrial flutter (principal)
CPT/HCPCS: 93225; 93226

== ENCOUNTER → 2021-05-31 10:19 | Outpatient (BNVA) | payer MEDICARE, OTHER, SELFPAY | PROVIDERS: PCP Internal Medicine; Visit Provider Internal Medicine | DX: I48.0 Paroxysmal atrial fibrillation (principal); Z51.81 Encounter for therapeutic drug level monitoring; Z79.01 Long term (current) use of anticoagulants | CPT/HCPCS: 85610; 99211 ==

== ENCOUNTER → 2021-06-18 10:18 | Outpatient (BNVA) | payer MEDICARE, OTHER, SELFPAY | PROVIDERS: PCP Internal Medicine; Referring Provider Internal Medicine; Visit Provider Internal Medicine | DX: I48.92 Unspecified atrial flutter (principal); R00.1 Bradycardia, unspecified; I10 Essential (primary) hypertension; Z79.01 Long term (current) use of anticoagulants; Z79.899 Other long term (current) drug therapy | CPT/HCPCS: 99212 ==

== ENCOUNTER → 2021-06-28 10:22 | Outpatient (BNVA) | payer MEDICARE, OTHER, SELFPAY | PROVIDERS: PCP Internal Medicine; Visit Provider Internal Medicine | DX: I48.0 Paroxysmal atrial fibrillation (principal); Z51.81 Encounter for therapeutic drug level monitoring; Z79.01 Long term (current) use of anticoagulants | CPT/HCPCS: 85610; 99211 ==

== ENCOUNTER 2021-07-08 06:56 | Day surgery (SDC) | payer MEDICARE, OTHER, SELFPAY ==
[2021-07-03 15:42] VITALS: BMI 31.4
--- NOTE | 2021-07-05 09:26 | P.CONAN_ITS ---
Documented by User: Millie Giron NP 07/05/21 14:08 HPI - Anesthesia Eval Consult details Narrative: 71yo M for Colonoscopy Warfarin for afib Chronic hyponatremia - Lytes DOS Insulin pump in situ PMFSH Active Problems Active Problems: All Active Problems (Updated 07/03/21 @ 15:34 by Cesilia Gonsales RN) Current use of anticoagulant therapy (Acute) Near syncope (Acute) DAILEY (dyspnea on exertion) (Acute) PAF (paroxysmal atrial fibrillation) (Acute) Hypertension (Acute) Hyperlipidemia (Acute) Diabetes (Acute) Atrial flutter with rapid ventricular response (Acute) Paroxysmal atrial flutter (Acute) Essential hypertension (Acute) Sinus bradycardia (Acute) Past Medical History Medical History Diabetes Elevated cholesterol Essential hypertension Paroxysmal atrial flutter Sinus bradycardia Family History Family History Father Colon cancer Mother Colon cancer Surgical History Surgical History H/O colonoscopy History of cardiac radiofrequency ablation (RFA) (~11/22/20) History of cardioversion (~11/2018) Hx of hernia repair Hx of left inguinal hernia repair Hx of shoulder surgery Social History Social History Household Members: Spouse Alcohol intake: never Patient Tobacco Use Status: Former Tobacco user Quit Date: >10 yr ago Tobacco use type: Cigarette Use of substances other than those prescribed or required for medical reasons: No Advance Directives Information Provided: No service: No Current occupational status: retired No [employer] Allergies Allergy/AdvReac Type Severity Reaction Status Date / Time No Known Allergies Allergy Verified 06/28/21 10:24 [No Known Allergies*] Home Medications Medication Instructions Recorded Confirmed Last Taken Type blood-glucose sensor (Dexcom G6 09/25/20 05/31/21 Unknown History Sensor) doxazosin 2 mg tablet 2 mg PO BEDTIME 09/25/20 07/03/21 Unknown History hydrochlorothiazide 12.5 mg tablet 1 tab PO DAILY 09/25/20 07/03/21 Unknown History insulin lispro 100 unit/mL SUBCUT 09/25/20 06/18/21 Unknown History subcutaneous solution (Humalog U-100 Insulin) insulin pump-infus. set-meter 09/25/20 06/18/21 Unknown History lisinopril 40 mg tablet 40 mg PO DAILY 09/25/20 07/03/21 Unknown History simvastatin 40 mg tablet 40 mg PO BEDTIME 09/25/20 07/03/21 Unknown History warfarin 5 mg tablet 5 mg PO DAILY tab 10/04/20 07/03/21 Unknown History Exam Exam Date and Time: July 05, [id number] Height,Weight and Vital Signs: Height 5 ft 11 in Weight 102 kg Pertinent Lab Results Pertinent Lab Results: Laboratory Tests 05/03/21 05/03/21 10:05 10:05 WBC 4.6 L Hgb 13.5 L Hct 38.9 L Plt Count 203 Carbon Dioxide 30 H BUN 12 Creatinine 0.83 Assessment and Plan Assessment Anesthesia Assessment: Chart Reviewed Documented by User: Jazmyne Templeton MD 07/08/21 08:10 [facility] Past Medical History Medical History Diabetes Elevated cholesterol Essential hypertension Paroxysmal atrial flutter Sinus bradycardia Family History Family History Father Colon cancer Mother Colon cancer Family history of problems with anesthesia: No Surgical History Surgical History H/O colonoscopy History of cardiac radiofrequency ablation (RFA) (~11/22/20) History of cardioversion (~11/2018) Hx of hernia repair Hx of left inguinal hernia repair Hx of shoulder surgery History of Problems with Anesthesia: No Social History Social History Household Members: Spouse Alcohol intake: never Patient Tobacco Use Status: Former Tobacco user Quit Date: >10 yr ago Tobacco use type: Cigarette Use of substances other than those prescribed or required for medical reasons: No Advance Directives Information Provided: No service: No Current occupational status: retired Meds Allergies Allergy/AdvReac Type Severity Reaction Status Date / Time No Known Allergies Allergy Verified 06/28/21 10:24 [No Known Allergies*] Home Medications Medication Instructions Recorded Confirmed Last Taken Type blood-glucose sensor (Dexcom G6 09/25/20 05/31/21 Unknown History Sensor) doxazosin 2 mg tablet 2 mg PO BEDTIME 09/25/20 07/03/21 Unknown History hydrochlorothiazide 12.5 mg tablet 1 tab PO DAILY 09/25/20 07/03/21 Unknown History insulin lispro 100 unit/mL SUBCUT 09/25/20 06/18/21 Unknown History subcutaneous solution (Humalog U-100 Insulin) insulin pump-infus. set-meter 09/25/20 06/18/21 Unknown History lisinopril 40 mg tablet 40 mg PO DAILY 09/25/20 07/03/21 Unknown History simvastatin 40 mg tablet 40 mg PO BEDTIME 09/25/20 07/03/21 Unknown History warfarin 5 mg tablet 5 mg PO DAILY tab 10/04/20 07/03/21 Unknown History Exam Airway Mallampati Class: II TM Dist: >3cm Neck ROM: Full Assessment and Plan Assessment Anesthesia Assessment: Anesthesia Plan Discussed Final Anesthetic Review Family History of Problems with Anesthesia: No History of Problems with Anesthesia: No NPO: Yes ASA Class: III Patient Risk: Intermediate Procedure Risk: Low Assessment/Block/Sedation in SS: Assess/Block/Sedation-SS Anesthetic Plan Anesthetic Plan: MAC:
[2021-07-08 07:37] LABS: Prothrombin Time 11.4 SEC (9.9-13.0)
[2021-07-08 07:45] LABS: Anion Gap 16 (12-20); Carbon Dioxide 24 mmol/L (22-29); Chloride 94 mmol/L (96-108); Potassium 4.6 mmol/L (3.3-5.1); Sodium 129 mmol/L (135-145)
[2021-07-08 08:05] VITALS: BP 138/66; PULSE 52; RESP 16; TEMP 36.8; O2SAT 98
[2021-07-08] MEDS: Lactated Ringers 1,000 ML 100 ML IVCONT (08:12)
[2021-07-08 09:12] VITALS: BP 106/52; PULSE 54; RESP 16; TEMP 36.9; O2SAT 97
--- NOTE | 2021-07-08 09:13 | P.BOP_ITS ---
Brief Operative Note Date of Service: 07/08/21 Pre-op diagnosis: Screening Post-op diagnosis: other (Diverticulosis) Procedure: Colonoscopy to the cecum and TI Surgeon: Girma Padron Anesthesia: MAC Was an Automotive Diagnostic Technician used for this Procedure?: No Estimated blood loss (mL): 0 Pathology: none sent Condition: stable Disposition: PACU
[2021-07-08 09:27] VITALS: BP 125/63; PULSE 55; RESP 16; O2SAT 97
--- NOTE | 2021-07-08 18:57 | OP_ITS ---
SURGEON: Girma Padron MD INDICATIONS: The patient presents for followup of personal history of tubular adenoma of the colon, family history of colon cancer, and colorectal cancer screening. Full consent has been obtained from him for this, including risks of bleeding and perforation. PREOPERATIVE DIAGNOSIS: POSTOPERATIVE DIAGNOSIS: PROCEDURE PERFORMED: Colonoscopy to cecum and terminal ileum. ESTIMATED BLOOD LOSS: COMPLICATIONS: ANESTHESIA: Monitored anesthesia care. ASSISTANTS: SPECIMENS: PREOPERATIVE DIAGNOSES: Personal history of tubular adenoma, colorectal cancer screening, and family history of colon cancer. POSTOPERATIVE DIAGNOSES: Personal history of tubular adenoma, colorectal cancer screening, and family history of colon cancer, diverticulosis and internal hemorrhoids. DESCRIPTION OF PROCEDURE: The patient was placed in the left lateral decubitus position. The digital rectal exam revealed no abnormalities. The Olympus video pediatric colonoscope was entered into the rectum and advanced easily to the cecum. Once in the cecum, I did identify normal-appearing cecal pouch with appendiceal orifice and a normal-appearing ileocecal valve. The terminal ileum was cannulated and appeared normal. The scope was withdrawn back in the colon. The entire cecum was well visualized. In the cecum, was an area of some scarring consistent with his previous polypectomy, but I did not see any sign of residual polyp tissue. The scope was then slowly withdrawn assessing all mucosal surfaces carefully. Preparation was excellent. I did not visualize any polyps, colitis, nor angiodysplasia. There was a mild amount of sigmoid diverticulosis. In the rectum, scope was retroflexed visualizing internal hemorrhoids, but no other pathology. The rectal mucosa appeared normal. The scope was straightened out and withdrawn from the patient. He tolerated the procedure well and was returned to the recovery area in stable condition. IMPRESSION: 1. Diverticulosis. 2. Internal hemorrhoids. PLAN: Given his previous history and family history, I would recommend a followup colonoscopy in 3 years for further screening. He was advised to resume his Coumadin today at his normal dose and have it adjusted either by Dr. Elizabeth or by the [facility]. This has been discussed with his . MD BALBINA Lange/VINCENT / [id number]
== END 2021-07-08 09:52 | disposition home or self-care (01) ==
PROVIDERS: Nurse Practitioner; PCP Internal Medicine; Visit Provider Internal Medicine
PROC: 0DJD8ZZ Inspection of Lower Intestinal Tract, Via Natural or Artificial Opening Endoscopic (ICD-10-PCS; CPT 45378; principal; 2021-07-08 08:20)
DX: Z12.11 Encounter for screening for malignant neoplasm of colon (principal); Z80.0 Family history of malignant neoplasm of digestive organs; Z86.010 Personal history of colon polyps; K57.30 Diverticulosis of large intestine without perforation or abscess without bleeding; K64.8 Other hemorrhoids; I10 Essential (primary) hypertension; I48.91 Unspecified atrial fibrillation; Z79.01 Long term (current) use of anticoagulants; E11.8 Type 2 diabetes mellitus with unspecified complications; Z79.4 Long term (current) use of insulin; Z96.41 Presence of insulin pump (external) (internal); Z79.899 Other long term (current) drug therapy; Z87.440 Personal history of urinary (tract) infections
CPT/HCPCS: G0105; 36415; 80051; 85610

== ENCOUNTER → 2021-07-26 10:37 | Outpatient (BNVA) | payer MEDICARE, OTHER, SELFPAY | PROVIDERS: PCP Internal Medicine; Visit Provider Internal Medicine | DX: Z13.89 Encounter for screening for other disorder (principal) | CPT/HCPCS: 85610; 99211 ==

== ENCOUNTER 2021-07-26 10:53 | Outpatient (REF) | payer MEDICARE, OTHER, SELFPAY ==
[2021-07-26 11:27] LABS: Estimated Average Glucose 137 mg/dL; Hemoglobin A1c % 6.4 %
== END 2021-07-26 10:54 | disposition home or self-care (01) ==
LOC: HO.LAB 10:53
PROVIDERS: PCP Internal Medicine; Visit Provider Pediatrics
DX: E10.42 Type 1 diabetes mellitus with diabetic polyneuropathy (principal); I48.0 Paroxysmal atrial fibrillation; Z51.81 Encounter for therapeutic drug level monitoring; Z79.01 Long term (current) use of anticoagulants; Z96.41 Presence of insulin pump (external) (internal)
CPT/HCPCS: 36415; 83036; 85610; 99211

== ENCOUNTER → 2021-08-23 10:26 | Outpatient (BNVA) | payer MEDICARE, OTHER, SELFPAY | PROVIDERS: PCP Internal Medicine; Visit Provider Internal Medicine | DX: I48.0 Paroxysmal atrial fibrillation (principal); Z51.81 Encounter for therapeutic drug level monitoring; Z79.01 Long term (current) use of anticoagulants | CPT/HCPCS: 85610; 99211 ==

== ENCOUNTER → 2021-09-06 13:32 | Outpatient (BNVA) | payer MEDICARE, OTHER, SELFPAY | PROVIDERS: PCP Internal Medicine; Visit Provider Internal Medicine | DX: I48.0 Paroxysmal atrial fibrillation (principal); Z51.81 Encounter for therapeutic drug level monitoring; Z79.01 Long term (current) use of anticoagulants | CPT/HCPCS: 85610; 99211 ==

== ENCOUNTER → 2021-10-03 10:19 | Outpatient (BNVA) | payer MEDICARE, OTHER, SELFPAY | PROVIDERS: PCP Internal Medicine; Visit Provider Internal Medicine | DX: I48.0 Paroxysmal atrial fibrillation (principal); Z51.81 Encounter for therapeutic drug level monitoring; Z79.01 Long term (current) use of anticoagulants | CPT/HCPCS: 85610; 99211 ==

== ENCOUNTER 2021-10-31 09:55 | Outpatient (REF) | payer MEDICARE, OTHER, SELFPAY ==
[2021-10-31 10:17] LABS: MANUAL DIFF FLAG NO
[2021-10-31 10:46] LABS: Basophils Percent Auto 0.7 % (0-2); Eosinophils Absolute Auto 0.2 X10*3/uL (0.0-0.4); Hematocrit 39.9 % (42.0-52.0); Hemoglobin 13.9 g/dl (14.0-18.0); Imm Gran Abs Auto 0.01 X10*3/uL (0.00-0.03); Imm Gran Pct Auto 0.2 % (0.0-0.4); Lymphocytes Absolute Auto 1.5 X10*3/uL (1.2-4.9); Lymphocytes Percent Auto 33.2 % (20-40); Mean Corpuscular HGB Conc 34.8 g/dl (31.0-36.0); Mean Corpuscular Volume 88.9 fL (80.0-98.0); Mean Platelet Volume 9.9 fL (9.4-12.4); Monocytes Absolute Auto 0.6 X10*3/uL (0.1-1.2); Monocytes Percent Auto 13.4 % (2-11); Neutrophils Absolute Auto 2.2 x10*3/uL (2.0-8.3); Neutrophils Percent Auto 48.5 % (45-73); Platelet Count 176 X10*3/uL (160-400); Red Blood Count 4.49 X10*6/uL (4.60-5.80); Red Cell Distribution Width 12.8 % (11.0-16.0); White Blood Count 4.5 X10*3/uL (4.8-10.8)
[2021-10-31 10:58] LABS: Estimated Average Glucose 134 mg/dL; Hemoglobin A1c % 6.3 %
[2021-10-31 11:18] LABS: Creatinine Urine 44.38 mg/dL; Microalbumin Urine < 5.0 mg/L
[2021-10-31 11:20] LABS: Alanine Aminotransferase 14 U/L (0-40); Alkaline Phosphatase 56 U/L (39-117); Anion Gap 11 (12-20); Aspartate Amino Transferase 19 U/L (5-37); Bilirubin Total 0.7 mg/dL (0.0-1.0); Blood Urea Nitrogen 15 mg/dL (9-16); Calcium 9.6 mg/dL (8.4-10.2); Carbon Dioxide 30 mmol/L (22-29); Chloride 98 mmol/L (96-108); Cholesterol 161 mg/dL; Estimated Glomerular Filt Rate > 60; Glucose Fasting 154 mg/dL (60-99); HDL Cholesterol 76 mg/dL; LDL Cholesterol Calculated 77 mg/dl; Potassium 4.7 mmol/L (3.3-5.1); Sodium 134 mmol/L (135-145); Total Protein 6.5 g/dL (6.5-8.0); Triglycerides 40 mg/dL
[2021-10-31 11:41] LABS: Prostate Specific Antigen 0.72 ng/mL (<0.05-4.0)
== END 2021-10-31 09:56 | disposition home or self-care (01) ==
LOC: HO.LAB 09:55
PROVIDERS: PCP Internal Medicine; Visit Provider Internal Medicine
DX: Z12.5 Encounter for screening for malignant neoplasm of prostate (principal); I48.0 Paroxysmal atrial fibrillation; Z51.81 Encounter for therapeutic drug level monitoring; Z79.01 Long term (current) use of anticoagulants; N40.0 Benign prostatic hyperplasia without lower urinary tract symptoms; E11.9 Type 2 diabetes mellitus without complications; E78.00 Pure hypercholesterolemia, unspecified; I10 Essential (primary) hypertension
CPT/HCPCS: 36415; 80053; 80061; 82043; 83036; 84153; 85025; 85610; 99211

== ENCOUNTER 2021-11-26 11:35 | Outpatient (REF) | payer MEDICARE, OTHER, SELFPAY ==
[2021-11-26 12:12] LABS: IDNOW Serial# 08D9AD1C
[2021-11-26 12:13] LABS: COVID-19 Test Negative (Negative)
== END 2021-11-26 11:36 | disposition home or self-care (01) ==
LOC: HO.LNP 11:35
PROVIDERS: PCP Internal Medicine; Visit Provider Internal Medicine
DX: Z20.822 Contact with and (suspected) exposure to COVID-19 (principal); R09.89 Other specified symptoms and signs involving the circulatory and respiratory systems
CPT/HCPCS: 87635

== ENCOUNTER → 2021-11-28 10:24 | Outpatient (BNVA) | payer MEDICARE, OTHER, SELFPAY | PROVIDERS: PCP Internal Medicine; Visit Provider Internal Medicine | DX: I48.0 Paroxysmal atrial fibrillation (principal); Z51.81 Encounter for therapeutic drug level monitoring; Z79.01 Long term (current) use of anticoagulants | CPT/HCPCS: 85610; 99211 ==

== ENCOUNTER → 2021-12-10 10:17 | Outpatient (BNVA) | payer MEDICARE, OTHER, SELFPAY | PROVIDERS: PCP Internal Medicine; Referring Provider Internal Medicine; Visit Provider Internal Medicine | DX: I48.92 Unspecified atrial flutter (principal); I10 Essential (primary) hypertension; R00.1 Bradycardia, unspecified | CPT/HCPCS: 93005; 99212 ==

== ENCOUNTER → 2021-12-26 10:24 | Outpatient (BNVA) | payer MEDICARE, OTHER, SELFPAY | PROVIDERS: PCP Internal Medicine; Visit Provider Internal Medicine | DX: I48.0 Paroxysmal atrial fibrillation (principal); Z51.81 Encounter for therapeutic drug level monitoring; Z79.01 Long term (current) use of anticoagulants | CPT/HCPCS: 85610; 99211 ==

== ENCOUNTER → 2022-01-23 11:00 | Outpatient (BNVA) | payer MEDICARE, OTHER, SELFPAY | PROVIDERS: PCP Internal Medicine; Visit Provider Internal Medicine | DX: I48.0 Paroxysmal atrial fibrillation (principal); Z51.81 Encounter for therapeutic drug level monitoring; Z79.01 Long term (current) use of anticoagulants | CPT/HCPCS: 85610; 99211 ==

== ENCOUNTER → 2022-02-20 10:44 | Outpatient (BNVA) | payer MEDICARE, OTHER, SELFPAY | PROVIDERS: PCP Internal Medicine; Visit Provider Internal Medicine | DX: I48.0 Paroxysmal atrial fibrillation (principal); Z79.01 Long term (current) use of anticoagulants; Z51.81 Encounter for therapeutic drug level monitoring | CPT/HCPCS: 85610; 99211 ==

== ENCOUNTER → 2022-02-24 10:43 | Outpatient (BNVA) | payer MEDICARE, OTHER, SELFPAY | PROVIDERS: PCP Internal Medicine; Visit Provider Internal Medicine | DX: I48.0 Paroxysmal atrial fibrillation (principal); Z79.01 Long term (current) use of anticoagulants; Z51.81 Encounter for therapeutic drug level monitoring | CPT/HCPCS: 85610; 99211 ==

== ENCOUNTER → 2022-03-03 10:57 | Outpatient (BNVA) | payer MEDICARE, OTHER, SELFPAY | PROVIDERS: PCP Internal Medicine; Visit Provider Internal Medicine | DX: I48.0 Paroxysmal atrial fibrillation (principal); Z79.01 Long term (current) use of anticoagulants; Z51.81 Encounter for therapeutic drug level monitoring | CPT/HCPCS: 85610; 99211 ==

== ENCOUNTER → 2022-03-31 11:13 | Outpatient (BNVA) | payer MEDICARE, OTHER, SELFPAY | PROVIDERS: PCP Internal Medicine; Visit Provider Internal Medicine | DX: Z79.01 Long term (current) use of anticoagulants (principal) ==

== ENCOUNTER → 2022-04-03 10:16 | Outpatient (BNVA) | payer MEDICARE, OTHER, SELFPAY | PROVIDERS: PCP Internal Medicine; Visit Provider Internal Medicine | DX: I48.0 Paroxysmal atrial fibrillation (principal); Z79.01 Long term (current) use of anticoagulants; Z51.81 Encounter for therapeutic drug level monitoring | CPT/HCPCS: 85610; 99211 ==

== ENCOUNTER → 2022-05-01 10:25 | Outpatient (BNVA) | payer MEDICARE, OTHER, SELFPAY | PROVIDERS: PCP Internal Medicine; Visit Provider Internal Medicine | DX: I48.0 Paroxysmal atrial fibrillation (principal); Z51.81 Encounter for therapeutic drug level monitoring; Z79.01 Long term (current) use of anticoagulants | CPT/HCPCS: 85610; 99211 ==

== ENCOUNTER → 2022-05-08 10:27 | Outpatient (BNVA) | payer MEDICARE, OTHER, SELFPAY | PROVIDERS: PCP Internal Medicine; Visit Provider Internal Medicine | DX: I48.0 Paroxysmal atrial fibrillation (principal); Z79.01 Long term (current) use of anticoagulants; Z51.81 Encounter for therapeutic drug level monitoring | CPT/HCPCS: 85610; 99211 ==

== ENCOUNTER → 2022-05-22 09:17 | Outpatient (BNVA) | payer MEDICARE, OTHER, SELFPAY | PROVIDERS: PCP Internal Medicine; Visit Provider Internal Medicine | DX: Z79.01 Long term (current) use of anticoagulants (principal) | CPT/HCPCS: 85610; 99211 ==

== ENCOUNTER 2022-05-22 10:47 | Outpatient (REF) | payer MEDICARE, OTHER, SELFPAY ==
[2022-05-22 13:38] LABS: MANUAL DIFF FLAG NO
[2022-05-22 13:50] LABS: Basophils Percent Auto 0.7 % (0-2); Eosinophils Absolute Auto 0.1 X10*3/uL (0.0-0.4); Eosinophils Percent Auto 1.2 % (0-4); Hematocrit 38.5 % (42.0-52.0); Hemoglobin 13.6 g/dl (14.0-18.0); Lymphocytes Absolute Auto 1.8 X10*3/uL (1.2-4.9); Mean Corpuscular HGB Conc 35.3 g/dl (31.0-36.0); Mean Corpuscular Hemoglobin 31.1 pg (27.0-33.0); Mean Corpuscular Volume 88.1 fL (80.0-98.0); Mean Platelet Volume 11.4 fL (9.4-12.4); Monocytes Absolute Auto 0.6 X10*3/uL (0.1-1.2); Monocytes Percent Auto 10.1 % (2-11); Neutrophils Absolute Auto 3.5 x10*3/uL (2.0-8.3); Platelet Count 211 X10*3/uL (160-400); Red Blood Count 4.37 X10*6/uL (4.60-5.80); Red Cell Distribution Width 12.7 % (11.0-16.0)
[2022-05-22 14:07] LABS: Alanine Aminotransferase 18 U/L (0-40); Alkaline Phosphatase 65 U/L (39-117); Anion Gap 15 (12-20); Aspartate Amino Transferase 27 U/L (5-37); Bilirubin Total 0.5 mg/dL (0.0-1.0); Blood Urea Nitrogen 11 mg/dL (9-16); Carbon Dioxide 27 mmol/L (22-29); Chloride 90 mmol/L (96-108); Estimated Glomerular Filt Rate > 60; Glucose Random 95 mg/dL (60-115); Potassium 4.7 mmol/L (3.3-5.1); Sodium 127 mmol/L (135-145); Total Protein 6.5 g/dL (6.5-8.0)
== END 2022-05-22 10:48 | disposition home or self-care (01) ==
LOC: HO.10HDL 10:47
PROVIDERS: Visit Provider Internal Medicine
DX: I48.0 Paroxysmal atrial fibrillation (principal); Z51.81 Encounter for therapeutic drug level monitoring; Z79.01 Long term (current) use of anticoagulants; I10 Essential (primary) hypertension; K21.9 Gastro-esophageal reflux disease without esophagitis
CPT/HCPCS: 36415; 80053; 85025; 85610; 99211

== ENCOUNTER → 2022-06-16 13:00 | Outpatient (BNVA) | payer MEDICARE, OTHER, SELFPAY | PROVIDERS: PCP Internal Medicine; Referring Provider Internal Medicine; Visit Provider Internal Medicine | DX: I48.92 Unspecified atrial flutter (principal); R00.1 Bradycardia, unspecified; I10 Essential (primary) hypertension; I51.89 Other ill-defined heart diseases; I27.20 Pulmonary hypertension, unspecified; Z98.890 Other specified postprocedural states | CPT/HCPCS: 85610; 99211; 99212 ==

== ENCOUNTER 2022-08-11 11:34 | Outpatient (REF) | payer MEDICARE, OTHER, SELFPAY ==
[2022-08-11 12:56] LABS: Hemoglobin 9.3 g/dl (14.0-18.0); Mean Corpuscular HGB Conc 33.2 g/dl (31.0-36.0); Mean Corpuscular Volume 90.3 fL (80.0-98.0); Mean Platelet Volume 10.7 fL (9.4-12.4); Platelet Count 200 X10*3/uL (160-400); Red Cell Distribution Width 13.5 % (11.0-16.0); White Blood Count 8.1 X10*3/uL (4.8-10.8)
== END 2022-08-11 11:35 | disposition home or self-care (01) ==
LOC: HO.LAB 11:34
PROVIDERS: PCP Internal Medicine; Visit Provider Internal Medicine
DX: I47.1 Supraventricular tachycardia (principal); I48.0 Paroxysmal atrial fibrillation; I27.20 Pulmonary hypertension, unspecified; Z51.81 Encounter for therapeutic drug level monitoring; Z79.01 Long term (current) use of anticoagulants
CPT/HCPCS: 36415; 85027; 85610; 99211; 99212

== ENCOUNTER → 2022-08-15 10:38 | Outpatient (REF) | payer MEDICARE, OTHER, SELFPAY ==
--- NOTE | 2022-08-15 10:41 | HM_ITS ---
Cardiac event monitor: Findings: Patient was monitor with mobile cardiac telemetry from 08/15/2020 [id number]. Baseline rhythm was normal sinus rhythm with lowest heart rate of 47 beats per minute and a maximum heart rate 115 beats per minute. Frequent sinus bradycardia noted with 27.5% of time heart rate below 60 beats per minute No significant pauses noted Frequent isolated PVCs noted 1.4% of total beats account for frequent PVCs Rare supraventricular ectopy is noted No sustained episodes of atrial fibrillation noted Patient reported multiple events with no correlating symptoms, correlating with either sinus rhythm or isolated PACs and PVCs. There was no specific pattern Conclusion: 1. Baseline was normal sinus rhythm with frequent sinus bradycardia 2. Frequent isolated PVCs noted 3. Patient reported multiple events which correlated either with sinus rhythm or isolated PAC and PVCs without any specific pattern MTDD
== END ==
LOC: HO.CARD 10:38
PROVIDERS: Visit Provider Internal Medicine
DX: I48.0 Paroxysmal atrial fibrillation (principal)
CPT/HCPCS: 93270

== ENCOUNTER → 2022-08-18 10:39 | Outpatient (BNVA) | payer MEDICARE, OTHER, SELFPAY | PROVIDERS: PCP Internal Medicine; Visit Provider Internal Medicine | DX: I48.0 Paroxysmal atrial fibrillation (principal); Z79.01 Long term (current) use of anticoagulants; Z51.81 Encounter for therapeutic drug level monitoring | CPT/HCPCS: 85610; 99211 ==

== ENCOUNTER → 2022-08-27 11:06 | Outpatient (BNVA) | payer MEDICARE, OTHER, SELFPAY | PROVIDERS: PCP Internal Medicine; Visit Provider Internal Medicine | DX: I48.0 Paroxysmal atrial fibrillation (principal); Z79.01 Long term (current) use of anticoagulants; Z51.81 Encounter for therapeutic drug level monitoring | CPT/HCPCS: 85610; 99211 ==

== ENCOUNTER 2022-09-04 09:53 | Outpatient (REF) | payer MEDICARE, OTHER, SELFPAY ==
[2022-09-04 10:33] LABS: INTERNATIONAL NORM RATIO 7.8 (0.9-1.1)
== END 2022-09-04 09:54 | disposition home or self-care (01) ==
LOC: HO.LAB 09:53
PROVIDERS: Visit Provider Internal Medicine
DX: Z13.89 Encounter for screening for other disorder (principal)
CPT/HCPCS: 36415; 85610

== ENCOUNTER 2022-09-04 12:12 | Outpatient (REF) | payer MEDICARE, OTHER, SELFPAY ==
--- NOTE | ~2022-09-04 | XR_ITS ---
EXAMINATION: XR hand LT min 3V CLINICAL INFORMATION: Reason for Exam M79.642 - Pain in left hand COMPARISON: None. TECHNIQUE: AP, lateral, and oblique views of the hand FINDINGS: No acute fracture or dislocation. Mild degenerative changes of the wrist with borderline loss of radiocarpal and radial ulnar joint space and nonspecific cystic change in the lunate and scaphoid. No soft tissue abnormality. XR/XR hand LT min 3V IMPRESSION: Mild degenerative changes of the wrist.
== END 2022-09-04 12:13 | disposition home or self-care (01) ==
LOC: HO.HOSX 12:12
PROVIDERS: Visit Provider Physician Assistant
DX: M79.642 Pain in left hand (principal); G56.02 Carpal tunnel syndrome, left upper limb; M72.0 Palmar fascial fibromatosis [Dupuytren]
CPT/HCPCS: 36415; 73130; 85610; 99202; 99212

== ENCOUNTER → 2022-09-05 10:46 | Outpatient (BNVA) | payer MEDICARE, OTHER, SELFPAY | PROVIDERS: PCP Internal Medicine; Visit Provider Internal Medicine | DX: I48.0 Paroxysmal atrial fibrillation (principal); Z51.81 Encounter for therapeutic drug level monitoring; Z79.01 Long term (current) use of anticoagulants | CPT/HCPCS: 85610; 99212 ==

== ENCOUNTER → 2022-09-08 10:02 | Outpatient (BNVA) | payer MEDICARE, OTHER, SELFPAY | PROVIDERS: PCP Internal Medicine; Visit Provider Internal Medicine | DX: I48.0 Paroxysmal atrial fibrillation (principal); Z79.01 Long term (current) use of anticoagulants; Z51.81 Encounter for therapeutic drug level monitoring | CPT/HCPCS: 85610; 99211 ==

== ENCOUNTER → 2022-09-11 10:34 | Outpatient (BNVA) | payer MEDICARE, OTHER, SELFPAY | PROVIDERS: PCP Internal Medicine; Visit Provider Internal Medicine | DX: I48.0 Paroxysmal atrial fibrillation (principal); Z51.81 Encounter for therapeutic drug level monitoring; Z79.01 Long term (current) use of anticoagulants | CPT/HCPCS: 85610; 99211 ==

== ENCOUNTER → 2022-09-17 10:54 | Outpatient (BNVA) | payer MEDICARE, OTHER, SELFPAY | PROVIDERS: PCP Internal Medicine; Visit Provider Internal Medicine | DX: I48.0 Paroxysmal atrial fibrillation (principal); Z79.01 Long term (current) use of anticoagulants; Z51.81 Encounter for therapeutic drug level monitoring | CPT/HCPCS: 85610; 99211 ==

== ENCOUNTER → 2022-09-22 11:38 | Outpatient (BNVA) | payer MEDICARE, OTHER, SELFPAY | PROVIDERS: PCP Internal Medicine; Visit Provider Internal Medicine | DX: I48.0 Paroxysmal atrial fibrillation (principal); Z51.81 Encounter for therapeutic drug level monitoring; Z79.01 Long term (current) use of anticoagulants | CPT/HCPCS: 85610; 99211 ==

== ENCOUNTER → 2022-10-21 10:17 | Outpatient (BNVA) | payer MEDICARE, OTHER, SELFPAY | PROVIDERS: PCP Internal Medicine; Visit Provider Internal Medicine | DX: R00.1 Bradycardia, unspecified (principal); I44.0 Atrioventricular block, first degree; I47.1 Supraventricular tachycardia; I48.92 Unspecified atrial flutter; I27.20 Pulmonary hypertension, unspecified; I10 Essential (primary) hypertension; E11.9 Type 2 diabetes mellitus without complications; K22.10 Ulcer of esophagus without bleeding; Z87.891 Personal history of nicotine dependence; Z79.4 Long term (current) use of insulin; Z96.41 Presence of insulin pump (external) (internal); Z98.890 Other specified postprocedural states | CPT/HCPCS: 93005; 99212 ==

== ENCOUNTER 2022-11-26 11:56 | Outpatient (REF) | payer MEDICARE, OTHER, SELFPAY ==
--- NOTE | 2022-11-26 10:15 | EMG_ITS ---
Please see scanned EMG / Nerve Conduction Report. MTDD
== END 2022-11-26 11:57 | disposition home or self-care (01) ==
LOC: HO.NEURO 11:56
PROVIDERS: PCP Internal Medicine; Visit Provider Physician Assistant
DX: N20.0 Calculus of kidney (principal); R20.2 Paresthesia of skin
CPT/HCPCS: 95885; 95913

== ENCOUNTER → 2023-01-07 10:02 | Outpatient (BNVA) | payer MEDICARE, OTHER, SELFPAY | PROVIDERS: PCP Internal Medicine; Visit Provider Orthopaedic Surgery | DX: G56.03 Carpal tunnel syndrome, bilateral upper limbs (principal); M65.331 Trigger finger, right middle finger; M65.341 Trigger finger, right ring finger; M72.0 Palmar fascial fibromatosis [Dupuytren] | CPT/HCPCS: 99212 ==

== ENCOUNTER 2023-01-12 09:25 | Day surgery (SDC) | payer MEDICARE, OTHER, SELFPAY ==
--- NOTE | 2023-01-12 10:24 | W.PM.OPN ---
Operative Note Operative Note Date of Service: 01/12/23 Narrative: Preop diagnosis: 1. Right Carpal tunnel syndrome 2. Right middle finger trigger finger 3. Right ring finger trigger finger Postop diagnosis: same Procedure: 1. Right Carpal tunnel release 2. Right middle finger trigger release 3. Right ring finger trigger release Surgeon: Danya Serrano MD Anesthesia: local block using 1% lidocaine with epinephrine Findings: Thickened transverse carpal ligament. EBL: Less than 5 mL Specimens: None Complications: None Disposition: Brought to recovery room in stable condition Plan: Follow-up for 10-14 days for wound check and suture removal Indications: The patient is 72 years old, with right carpal tunnel syndrome, and a right middle and right ring finger trigger fingers that have been unresponsive to nonoperative management. The risks and benefits of operative treatment including but not limited to risk of damage to blood vessels, nerves, tendons, infection, persistent pain, persistent symptoms, or possible need for additional surgery were discussed with the patient and the patient wishes to proceed with surgery. Procedure: Once consent was obtained a local block was performed using a combination of 1% lidocaine with epinephrine. The patient was then brought back to the operating suite and placed on the operative table in supine position. The right it is upper extremity was prepped and draped in a standard surgical fashion. Once assured that we had a good block, a 1.5 cm oblique incision was made centered over the A1 zackery of the right middle finger . The incision was made through the skin to the subcutaneous tissues using a #15 blade. Careful dissection was made down to the level of the A1 zackery using tenotomy scissors, with care being taken to protect the nearby neurovascular structures. A longitudinal incision was made in the A1 zackery 1st using a #15 blade, then using tenotomy scissors under direct visualization. The A1 zackery was noted to be thickened. Following our A1 zackery release, we no longer saw any locking or catching of the digit with flexion and extension. Once assured that we had a good block, a 1.5 cm oblique incision was made centered over the A1 zackery of the right ring finger . The incision was made through the skin to the subcutaneous tissues using a #15 blade. Careful dissection was made down to the level of the A1 zackery using tenotomy scissors, with care being taken to protect the nearby neurovascular structures. A longitudinal incision was made in the A1 zackery 1st using a #15 blade, then using tenotomy scissors under direct visualization. The A1 zackery was noted to be thickened. Following our A1 zackery release, we no longer saw any locking or catching of the digit with flexion and extension. Once assured that we had a good block, a 2.0 cm longitudinal incision was made centered over the right carpal tunnel. The incision was made through the skin to the subcutaneous tissues using a #15 blade. Dissection was made down to the level of the transverse carpal ligament with care being taken to protect the palmar cutaneous nerve. Once the transverse carpal ligament was clearly visualized, a longitudinal incision was made in the transverse carpal ligament 1st using a #15 blade, then using tenotomy scissors under direct visualization. Care was taken to look for and protect the motor branch of the median nerve when seen in this area. Once satisfied with our carpal tunnel release the wounds were copiously irrigated with normal saline and hemostasis was obtained with a brief period of local pressure. The skin edges were reapproximated with some 5.0 nylon suture material and a sterile dressing was applied. The patient appears to have tolerated the procedure well and with no complications. All digits were well vascularized at the conclusion of the case.
--- NOTE | 2023-01-12 10:52 | MHC.SHP ---
Pre-Procedural Eval Section A Date of Service: 01/12/23 The patient is an INPATIENT: No Changes since office visit: No Cold of Flu in the past 2 weeks, No New Medical Problems, No Changes in Medication and No Patient answered all questions The History & Physical has been completed within 30 days and I have reviewed it.: Yes Section B Chief Complaint: carpal tunnel,trigger finger Allergies: Allergies Allergy/AdvReac Type Severity Reaction Status Date / Time No Known Allergies Allergy Verified 01/07/23 10:27 [No Known Allergies*] Plan I have reviewed the history and physical and performed a pertinent physical examination on my patient. No changes have occurred unless specified. Time Spent With Patient Time: Total time managing care of this patient today ____ minutes.
[2023-01-12 11:29] VITALS: BP 156/63; PULSE 49; RESP 16; TEMP 36.4; O2SAT 97; BMI 30.7
[2023-01-12 13:18] VITALS: BP 137/67; PULSE 87; RESP 16; TEMP 36.6; O2SAT 98
== END 2023-01-12 13:18 | disposition home or self-care (01) ==
LOC: HO.SSS 09:26
PROVIDERS: PCP Internal Medicine; Visit Provider Orthopaedic Surgery
PROC: (CPT 64721; principal; 2023-01-12 11:40)
PROC: (CPT 26055; 2023-01-12 11:40)
DX: G56.01 Carpal tunnel syndrome, right upper limb (principal); M65.331 Trigger finger, right middle finger; M65.341 Trigger finger, right ring finger; R20.0 Anesthesia of skin; M72.0 Palmar fascial fibromatosis [Dupuytren]; I48.0 Paroxysmal atrial fibrillation; I10 Essential (primary) hypertension; E78.00 Pure hypercholesterolemia, unspecified; E11.9 Type 2 diabetes mellitus without complications; Z96.41 Presence of insulin pump (external) (internal); Z79.4 Long term (current) use of insulin; Z87.891 Personal history of nicotine dependence
CPT/HCPCS: 64721; 26055 ×2; J0171; J2795

== ENCOUNTER → 2023-01-27 09:20 | Outpatient (BNVA) | payer MEDICARE, OTHER, SELFPAY | PROVIDERS: PCP Internal Medicine; Visit Provider Orthopaedic Surgery | DX: M72.0 Palmar fascial fibromatosis [Dupuytren] (principal); G56.03 Carpal tunnel syndrome, bilateral upper limbs; M65.331 Trigger finger, right middle finger; M65.341 Trigger finger, right ring finger | CPT/HCPCS: 99212 ==

== ENCOUNTER 2023-02-16 05:52 | Day surgery (SDC) | payer MEDICARE, OTHER, SELFPAY ==
[2023-02-11 10:54] VITALS: BMI 30.7
--- NOTE | 2023-02-13 13:34 | P.CONAN_ITS ---
HPI - Anesthesia Eval Consult details Narrative: 72yo M for Left Carpal Tunnel Release, Left Dupuytrens Partial Fasciepomy in the palm Cardiac cleared PMFSH Active Problems Active Problems: All Active Problems (Updated 01/07/23 @ 11:28 by Kenny Sosa) Current use of anticoagulant therapy (Acute) Near syncope (Acute) DAILEY (dyspnea on exertion) (Acute) PAF (paroxysmal atrial fibrillation) (Acute) Hypertension (Acute) Hyperlipidemia (Acute) Diabetes (Acute) Atrial flutter with rapid ventricular response (Acute) Paroxysmal atrial flutter (Acute) Diastolic dysfunction (Acute) Pulmonary hypertension (Acute) Hand pain (Acute) Carpal tunnel syndrome, left (Acute) Dupuytren's contracture of left hand (Acute) Carpal tunnel syndrome of right wrist (Acute) Trigger finger, right middle finger (Acute) Trigger finger, right ring finger (Acute) Esophageal ulcer (Acute) SVT (supraventricular tachycardia) (Acute) Essential hypertension (Acute) Sinus bradycardia (Acute) Past Medical History Medical History Diabetes Elevated cholesterol Esophageal ulcer Essential hypertension Paroxysmal atrial flutter Sinus bradycardia SVT (supraventricular tachycardia) Family History Family History Father Colon cancer Mother Colon cancer Family history of problems with anesthesia: No Surgical History Surgical History (Updated 02/11/23 @ 10:47 by Cesilia Gonsales RN) H/O colonoscopy History of cardiac radiofrequency ablation (RFA) (~11/22/20) History of cardioversion (~11/2018) Hx of hand surgery Hx of hernia repair Hx of left inguinal hernia repair Hx of shoulder surgery History of Problems with Anesthesia: No Social History Social History Household Members: Spouse Alcohol intake: never Patient Tobacco Use Status: Former Tobacco user Quit Date: >10 yr ago Tobacco use type: Cigarette service: No Current occupational status: retired Meds Allergies Allergy/AdvReac Type Severity Reaction Status Date / Time No Known Allergies Allergy Verified 01/27/23 09:34 [No Known Allergies*] Home Medications Medication Instructions Recorded Confirmed Last Taken Type blood-glucose sensor (Dexcom G6 09/25/20 10/21/22 Unknown History Sensor device) doxazosin 2 mg tablet 2 mg PO BEDTIME 09/25/20 02/11/23 Unknown History insulin lispro 100 unit/mL subcut 09/25/20 10/21/22 Unknown History subcutaneous solution (Humalog U-100 Insulin) insulin pump-infus. set-meter 09/25/20 10/21/22 Unknown History blood-glucose transmitter (Dexcom #1 ea 09/06/21 10/21/22 Unknown History G6 Transmitter device) glucagon 3 mg/actuation nasal 3 mg intranasal ONCE PRN 08/18/22 02/11/23 Unknown History spray (Baqsimi) hypoglycemia hydrochlorothiazide 12.5 mg tablet 25 mg PO DAILY 08/18/22 02/11/23 Unknown History omega-3 fatty acids 500 mg capsule 500 mg PO DAILY 08/18/22 02/11/23 Unknown History simvastatin 40 mg tablet 40 mg PO BEDTIME 08/18/22 02/11/23 Unknown History cholecalciferol (vitamin D3) PO 09/08/22 10/21/22 Unknown History lisinopril 40 mg tablet 40 mg PO DAILY 09/11/22 02/11/23 Unknown History pantoprazole 40 mg tablet,delayed 40 mg PO DAILY 09/22/22 02/11/23 02/16/23 Hi story release Exam Exam Date and Time: February 13, 2023 1334 Height,Weight and Vital Signs: Height 5 ft 11 in Weight 99.79 kg Narrative Narrative: EKG 09/2022 sinus bradycardia at 52/Min; MS prolongation to 210 millisecond; normal corrected QT. Echocardiogram -09/2020- normal LVEF, 55-60%, moderate diastolic dysfunction; moderately dilated left atrium; mild mitral regurgitation and [id number] pulmonary hypertension. Myocardial perfusion imaging-10/2020-normal perfusion. Assessment and Plan Assessment Anesthesia Assessment: Chart Reviewed Final Anesthetic Review Family History of Problems with Anesthesia: No History of Problems with Anesthesia: No
[2023-02-16 06:14] VITALS: BMI 31.4
[2023-02-16 06:17] VITALS: BMI 31.4
[2023-02-16 06:38] LABS: Hematocrit 37.1 % (42.0-52.0); Hemoglobin 12.7 g/dl (14.0-18.0); Mean Corpuscular HGB Conc 34.2 g/dl (31.0-36.0); Mean Corpuscular Hemoglobin 28.9 pg (27.0-33.0); Mean Corpuscular Volume 84.3 fL (80.0-98.0); Mean Platelet Volume 9.7 fL (9.4-12.4); Platelet Count 174 X10*3/uL (160-400); Red Cell Distribution Width 15.6 % (11.0-16.0); White Blood Count 4.6 X10*3/uL (4.8-10.8)
[2023-02-16 06:39] VITALS: BP 135/49; PULSE 53; RESP 18; TEMP 36.5; O2SAT 98
[2023-02-16] MEDS: Lactated Ringers 1,000 ML 100 ML IVCONT (06:41)
[2023-02-16 06:43] LABS: Glucose, Whole Blood 158 mg/dL (60-115)
[2023-02-16 06:52] LABS: Anion Gap 10 (12-20); Blood Urea Nitrogen 16 mg/dL (9-16); Calcium 8.8 mg/dL (8.4-10.2); Carbon Dioxide 26 mmol/L (22-29); Chloride 102 mmol/L (96-108); Creatinine Clr Calc Pharmacy 91.6; Estimated Glomerular Filt Rate > 60; Glucose Fasting 154 mg/dL (60-99); Potassium 4.3 mmol/L (3.3-5.1); Sodium 134 mmol/L (135-145)
--- NOTE | 2023-02-16 07:14 | PC.NURSE ---
Pt. has insulin pump @ RLQ of abdomen with lispro 0.65 unitsh basal rate. glucose sensor at R lower thigh
--- NOTE | 2023-02-16 07:34 | HO.ANESPROP2 ---
[facility] Active Problems Active Problems: All Active Problems (Updated 01/07/23 @ 11:28 by Kenny Sosa) Current use of anticoagulant therapy (Acute) Near syncope (Acute) DAILEY (dyspnea on exertion) (Acute) PAF (paroxysmal atrial fibrillation) (Acute) Hypertension (Acute) Hyperlipidemia (Acute) Diabetes (Acute) Atrial flutter with rapid ventricular response (Acute) Paroxysmal atrial flutter (Acute) Diastolic dysfunction (Acute) Pulmonary hypertension (Acute) Hand pain (Acute) Carpal tunnel syndrome, left (Acute) Dupuytren's contracture of left hand (Acute) Carpal tunnel syndrome of right wrist (Acute) Trigger finger, right middle finger (Acute) Trigger finger, right ring finger (Acute) Esophageal ulcer (Acute) SVT (supraventricular tachycardia) (Acute) Essential hypertension (Acute) Sinus bradycardia (Acute) Past Medical History Medical History Diabetes Elevated cholesterol Esophageal ulcer Essential hypertension Paroxysmal atrial flutter Sinus bradycardia SVT (supraventricular tachycardia) Functional capacity: independent ambulation Family History Family History Father Colon cancer Mother Colon cancer Family history of problems with anesthesia: No Surgical History Surgical History (Updated 02/11/23 @ 10:47 by Cesilia Gonsales RN) H/O colonoscopy History of cardiac radiofrequency ablation (RFA) (~11/22/20) History of cardioversion (~11/2018) Hx of hand surgery Hx of hernia repair Hx of left inguinal hernia repair Hx of shoulder surgery History of Problems with Anesthesia: No Social History Social History Household Members: Spouse Alcohol intake: never Patient Tobacco Use Status: Former Tobacco user Quit Date: >10 yr ago Tobacco use type: Cigarette Are you DNR?: No Advance Directives: No Advance Directives Information Provided: Yes service: No Current occupational status: retired Meds Allergies Allergy/AdvReac Type Severity Reaction Status Date / Time No Known Allergies Allergy Verified 01/27/23 09:34 [No Known Allergies*] Active Medications: Current Medications Lactated Ringer's (Lr) 1,000 mls @ 100 mls/hr IVCONT .Q10H ANNA Last Admin: 02/16/23 06:41 Dose: 100 mls/hr Home Medications Medication Instructions Recorded Confirmed Last Taken Type blood-glucose sensor (Dexcom G6 09/25/20 10/21/22 Unknown History Sensor device) doxazosin 2 mg tablet 2 mg PO BEDTIME 09/25/20 02/11/23 Unknown History insulin lispro 100 unit/mL subcut 09/25/20 10/21/22 Unknown History subcutaneous solution (Humalog U-100 Insulin) insulin pump-infus. set-meter 09/25/20 10/21/22 Unknown History blood-glucose transmitter (Dexcom #1 ea 09/06/21 10/21/22 Unknown History G6 Transmitter device) glucagon 3 mg/actuation nasal 3 mg intranasal ONCE PRN 08/18/22 02/11/23 Unknown History spray (Baqsimi) hypoglycemia hydrochlorothiazide 12.5 mg tablet 25 mg PO DAILY 08/18/22 02/11/23 Unknown History omega-3 fatty acids 500 mg capsule 500 mg PO DAILY 08/18/22 02/11/23 Unknown History simvastatin 40 mg tablet 40 mg PO BEDTIME 08/18/22 02/11/23 Unknown History cholecalciferol (vitamin D3) PO 09/08/22 10/21/22 Unknown History lisinopril 40 mg tablet 40 mg PO DAILY 09/11/22 02/11/23 Unknown History pantoprazole 40 mg tablet,delayed 40 mg PO DAILY 09/22/22 02/11/23 02/16/23 History release Exam Exam Date and Time: February 16, 2023 0734 Height,Weight and Vital Signs: Height 5 ft 11 in Weight 102.058 kg Last Vital Signs Temp 97.7 F 02/16/23 06:39 Pulse 53 02/16/23 06:39 Resp 18 02/16/23 06:39 BP 135/49 L 02/16/23 06:39 Pulse Ox 98 02/16/23 06:39 O2 Del Method Room Air 02/16/23 06:39 Pertinent Lab Results Pertinent Lab Results: Laboratory Tests 02/16/23 02/16/23 02/16/23 06:28 06:31 06:31 WBC 4.6 L RBC 4.40 L D Hgb 12.7 L D Hct 37.1 L D MCV 84.3 MCH 28.9 MCHC 34.2 RDW 15.6 Plt Count 174 MPV 9.7 Absolute Nucleated RBC 0.000 Nucleated RBC % (auto) 0.0 Sodium 134 L Potassium 4.3 Chloride 102 Carbon Dioxide 26 Anion Gap 10 L BUN 16 Creatinine 0.86 Estim Creat Clear Calc 91.6 Estimated GFR > 60 POC Glucose 158 H Fasting Glucose 154 H Calcium 8.8 Airway Mallampati Class: III TM Dist: >3cm Neck ROM: Full Heart: RRR Lungs: CTA Assessment and Plan Assessment Anesthesia Assessment: Chart Reviewed Final Anesthetic Review Family History of Problems with Anesthesia: No History of Problems with Anesthesia: No ASA Class: III Final Preanesthetic Review: Meds/Allgs Chart Reviewed, Consent Obtained/Reviewed and Anes Risks/Benef Reviewed Patient Risk: Intermediate Procedure Risk: Low Anesthetic Plan Anesthetic Plan: GA Disposition: Standard PACU
[2023-02-16 09:05] VITALS: BP 129/62; PULSE 73; RESP 16; TEMP 36.3; O2SAT 97
[2023-02-16 09:10] VITALS: BP 128/56; PULSE 63; RESP 16; O2SAT 97
[2023-02-16 09:12] LABS: Glucose, Whole Blood 163 mg/dL (60-115)
--- NOTE | 2023-02-16 09:12 | MHC.SHP ---
Pre-Procedural Eval Section A Date of Service: 02/16/23 The patient is an INPATIENT: No Changes since office visit: No Cold of Flu in the past 2 weeks, No New Medical Problems, No Changes in Medication and No Patient answered all questions The History & Physical has been completed within 30 days and I have reviewed it.: Yes Section B Chief Complaint: Carpal tunnel syndrome, and partial fasciectomy le Allergies: Allergies Allergy/AdvReac Type Severity Reaction Status Date / Time No Known Allergies Allergy Verified 01/27/23 09:34 [No Known Allergies*] Plan I have reviewed the history and physical and performed a pertinent physical examination on my patient. No changes have occurred unless specified. Time Spent With Patient Time: Total time managing care of this patient today ____ minutes.
--- NOTE | 2023-02-16 09:12 | W.PM.OPN ---
Operative Note Operative Note Date of Service: 02/16/23 Narrative: Operative Note Narrative: Preop diagnosis: 1. Left ring finger Dupuytren's contracture 2. Left carpal tunnel syndrome Postop diagnosis: Same Procedure: 1. Left partial Dupuytren's fasciectomy, palm only 2. Left carpal tunnel release Surgeon: Danya Serrano MD Anesthesia: General Anesthesia Findings: Thickening of the transverse carpal ligament. Dupuytren's cord in line with the left ring finger. Able to bring MCP joint into full extension after partial fasciectomy. Implants: None Tourniquet time: 18 minutes EBL: 5.0 ml Specimen: Left ring finger Dupuytren's cord from palm Drains: None Complications: None Disposition: Brought to the recovery room in stable condition Plan: Follow-up in 10-14 days for wound check, suture removal and to check pathology Indications: The patient is a 72 year old man with left carpal tunnel syndrome and a left ring finger Dupuytren's contracture . The risks and benefits of operative treatment, including but not limited to risk of damage to blood vessels, nerves, tendons, infection, recurrence, persistent pain or numbness, incomplete resolution of preoperative symptoms, or need for further surgery were discussed with the patient and they wished to proceed with surgery. Procedure: Once consent was obtained patient was brought back to the operating suite and placed in the operating table in a supine position. . Perioperative antibiotics and anesthesia was administered by the anesthesia team. A tourniquet was applied to the proximal aspect of the left upper extremity and the limb was prepped and draped in a standard surgical fashion. The limb was elevated exsanguinated with Esmarch bandage and the tourniquet inflated to 250 mm of mercury for a total tourniquet time of 18 minutes. Once assured that we had a good block, a 2.0 cm longitudinal incision was made centered over the left carpal tunnel. The incision was made through the skin to the subcutaneous tissues using a #15 blade. Dissection was made down to the level of the transverse carpal ligament with care being taken to protect the palmar cutaneous nerve. Once the transverse carpal ligament was clearly visualized, a longitudinal incision was made in the transverse carpal ligament 1st using a #15 blade, then using tenotomy scissors under direct visualization. Care was taken to look for and protect the motor branch of the median nerve when seen in this area. Once satisfied with our carpal tunnel release the wound was irrigated with normal saline. I then turned my attention to the Dupuytren's cord involving the left ring finger. I made a 5 cm Zora type incision in the left palm centered over the Dupuytren's cord to the ring finger. This extended proximally from the A1 zackery area. The incision was made through the skin to the subcutaneous tissues using a 15. Blade. I then dissected down to the Dupuytren's cord using tenotomy and iris scissors. I isolated the proximal aspect of the cord and cut it transversely using iris scissors under direct visualization. I then placed a snap on the and of the Dupuytren's cord and released in a proximal to distal direction using tenotomy and iris scissors under direct visualization with care being taken to protect the underlying neurovascular structures. The cord was then removed and placed on the back table to be sent for histopathology. At this point I was able to bring the MCP joint into full extension. At this point the tourniquet was deflated and hemostasis obtained with a brief period of local pressure and bipolar electrocautery. The wound was copiously irrigated with normal saline. The skin edges were reapproximated with 4-0 and 5 0 Prolene suture. The wound was infiltrated with some 1% lidocaine with epinephrine for postop pain control and a sterile dressing was applied. The patient appears to have tolerated the procedure well and with no complications. All digits were well vascularized conclusion of the case.
--- NOTE | 2023-02-16 09:14 | HO.POSTANES ---
Post Anesthesia Evaluation Post Anesthesia Evaluation Vital Signs: Vital Signs Temp Pulse Resp BP Pulse Ox O2 Del Method 02/16/23 06:39 97.7 F 53 18 135/49 L 98 Room Air Anesthesia: General LMA Mental Status: Awake Pain Control: Satisfactory Nausea/Vomiting: None Hydration: Adequate Anesthesia-Related Issues: No Anes. Related Issues
[2023-02-16 09:15] VITALS: BP 139/62; PULSE 59; RESP 16; O2SAT 97
[2023-02-16 09:20] VITALS: BP 131/57; PULSE 59; RESP 16; O2SAT 97
[2023-02-16 09:35] VITALS: BP 142/61; PULSE 60; RESP 15; TEMP 36.5; O2SAT 95
== END 2023-02-16 10:51 | disposition home or self-care (01) ==
PROVIDERS: Nurse Practitioner; PCP Internal Medicine; Visit Provider Orthopaedic Surgery
PROC: (CPT 64721; principal; 2023-02-16 07:30)
PROC: (CPT 26045; 2023-02-16 07:30)
DX: G56.02 Carpal tunnel syndrome, left upper limb (principal); M72.0 Palmar fascial fibromatosis [Dupuytren]; R20.0 Anesthesia of skin; I10 Essential (primary) hypertension; E11.9 Type 2 diabetes mellitus without complications; E78.00 Pure hypercholesterolemia, unspecified; I48.92 Unspecified atrial flutter; Z79.899 Other long term (current) drug therapy
CPT/HCPCS: 26121; 64721; 36415; 80048; 82947; 85027; 88304; J0690; J2250; J2795; J3010

== ENCOUNTER 2023-02-19 09:45 | Outpatient (REF) | payer MEDICARE, OTHER, SELFPAY ==
[2023-02-19 10:04] LABS: MANUAL DIFF FLAG NO
[2023-02-19 10:09] LABS: Basophils Percent Auto 0.7 % (0-2); Eosinophils Absolute Auto 0.1 X10*3/uL (0.0-0.4); Eosinophils Percent Auto 2.9 % (0-4); Hematocrit 37.9 % (42.0-52.0); Hemoglobin 12.8 g/dl (14.0-18.0); Imm Gran Abs Auto 0.01 X10*3/uL (0.00-0.03); Imm Gran Pct Auto 0.2 % (0.0-0.4); Lymphocytes Absolute Auto 1.6 X10*3/uL (1.2-4.9); Lymphocytes Percent Auto 35.6 % (20-40); Mean Corpuscular HGB Conc 33.8 g/dl (31.0-36.0); Mean Corpuscular Hemoglobin 28.5 pg (27.0-33.0); Mean Corpuscular Volume 84.4 fL (80.0-98.0); Mean Platelet Volume 9.5 fL (9.4-12.4); Monocytes Absolute Auto 0.7 X10*3/uL (0.1-1.2); Monocytes Percent Auto 14.5 % (2-11); Neutrophils Absolute Auto 2.1 x10*3/uL (2.0-8.3); Neutrophils Percent Auto 46.1 % (45-73); Platelet Count 173 X10*3/uL (160-400); Red Blood Count 4.49 X10*6/uL (4.60-5.80); Red Cell Distribution Width 15.4 % (11.0-16.0); White Blood Count 4.5 X10*3/uL (4.8-10.8)
[2023-02-19 10:14] LABS: Estimated Average Glucose 146 mg/dL; Hemoglobin A1c % 6.7 %
[2023-02-19 10:51] LABS: Alanine Aminotransferase 12 U/L (0-40); Albumin Level 3.8 g/dL (3.5-5.0); Alkaline Phosphatase 70 U/L (39-117); Anion Gap 12 (12-20); Aspartate Amino Transferase 23 U/L (5-37); Bilirubin Total 0.9 mg/dL (0.0-1.0); Blood Urea Nitrogen 15 mg/dL (9-16); Calcium 9.2 mg/dL (8.4-10.2); Carbon Dioxide 28 mmol/L (22-29); Chloride 101 mmol/L (96-108); Cholesterol 156 mg/dL; Estimated Glomerular Filt Rate > 60; Glucose Fasting 152 mg/dL (60-99); HDL Cholesterol 75 mg/dL; Iron 51 mcg/dL (45-160); LDL Cholesterol Calculated 73 mg/dl; Percent Iron Saturation 18 % (15-50); Potassium 4.6 mmol/L (3.3-5.1); Sodium 136 mmol/L (135-145); Total Iron Binding Capacity 282 mcg/dL (228-428); Total Protein 6.2 g/dL (6.5-8.0); Triglycerides 41 mg/dL; Unsaturated Iron Binding 231 ug/dL
[2023-02-19 11:05] LABS: Prostate Specific Antigen 0.63 ng/mL (<0.05-4.0)
[2023-02-19 12:02] LABS: Microalbum/Creatinine Ratio Ur 7.3 ug/mg cr
== END 2023-02-19 09:46 | disposition home or self-care (01) ==
LOC: HO.LAB 09:45
PROVIDERS: PCP Internal Medicine; Visit Provider Internal Medicine
DX: Z00.00 Encounter for general adult medical examination without abnormal findings (principal); Z12.5 Encounter for screening for malignant neoplasm of prostate; E11.9 Type 2 diabetes mellitus without complications; Z79.4 Long term (current) use of insulin
CPT/HCPCS: 36415; 80053; 80061; 82043; 83036; 83540; 84153; 85025

== ENCOUNTER → 2023-03-03 08:29 | Outpatient (BNVA) | payer MEDICARE, OTHER, SELFPAY | PROVIDERS: PCP Internal Medicine; Visit Provider Orthopaedic Surgery | DX: Z47.89 Encounter for other orthopedic aftercare (principal); G56.01 Carpal tunnel syndrome, right upper limb; M65.331 Trigger finger, right middle finger; M65.341 Trigger finger, right ring finger; M25.649 Stiffness of unspecified hand, not elsewhere classified; Z86.69 Personal history of other diseases of the nervous system and sense organs | CPT/HCPCS: 99212 ==

== ENCOUNTER → 2023-03-31 08:52 | Outpatient (BNVA) | payer MEDICARE, OTHER, SELFPAY | PROVIDERS: PCP Internal Medicine; Visit Provider Orthopaedic Surgery | DX: Z47.89 Encounter for other orthopedic aftercare (principal); G56.01 Carpal tunnel syndrome, right upper limb; M65.331 Trigger finger, right middle finger; M65.341 Trigger finger, right ring finger; M25.649 Stiffness of unspecified hand, not elsewhere classified; Z87.39 Personal history of other diseases of the musculoskeletal system and connective tissue; Z86.69 Personal history of other diseases of the nervous system and sense organs | CPT/HCPCS: 99212 ==

== ENCOUNTER 2023-04-13 09:00 | Outpatient (RCR) | payer MEDICARE, OTHER, SELFPAY ==
--- NOTE | 2023-03-19 16:26 | MHC.OT.EP ---
[address] [phone] Occupational Therapy Plan of Care Patient Name: Abraham Vera Date of Evaluation: 03/19/23 Diagnosis: Left RF fasciectomy ,palm only 02/16/23 Left CTR Right CTR 02/12/23 Right ring and middle finger trigger release 02/12/23 Pain Location: 1 left hand palm , surgical site Pain Score: 3 Pain Scale Used: Numeric (0 - 10) Aggravating Factors: Pressure on left palm and inc use Alleviating Factors: Pt limiting activities Assessment: Pt is a 72 yo male 5 wks s/p right CTR and right middle and ring trigger release. 5 wks 4 days s/p left RF fasciectomy( palm only) and left CTR. On last MD appointment 03/03/23 pt was able to bring left digits to palm and put hand flat on table top Today pt presents with slight inc in PIPj flexion contracture and no significant change in digit flexion to palm Pt reports continued mild hand paresthesia . Bilateral hand digits 1-5 show impaired light touch sensation with [place] Monofilaments. Medical history includes DM . 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 Frequency and Duration: The patient will be seen 2x wk x 4 wks Short Term Goals: Demo indep with hand ROM ex Left D2-5 PIPj to > 90 deg Right D4 -5 PIPj to >80 deg Left PIPj ext to neutral Right PIPj ext to <10 deg Report bilateral hand sensation improved Report mild difficulty with daily activities hand strength Indep in hand ROM and strengthening ex. Loan Operations Specialist Goals: Same as above Treatment Plan: Therapeutic Exercise Therapeutic Activity Home Exercise Program Splinting Patient Education ADL Training Ultrasound Paraffin Fluidotherapy MHP Joint Mobilization Soft Tissue Mobilization Electronically Signed By: Dianne Toledo OT CHT CLT Please Sign and return to therapist. Thank you once again for your referral.
--- NOTE | 2023-04-13 09:53 | MHC.OT.DC ---
[address] [phone] F: [phone] Occupational Therapy Discharge Note Patient Name: Abraham Vera Provider: Danya Serrano Diagnosis: Left RF fasciectomy ,palm only 02/16/23 Left CTR Right CTR 02/12/23 Right ring and middle finger trigger release 02/12/23 Date of Surgery: 02/16/23 Date of Evaluation: 03/19/23 Date of Discharge: Treatments to Date: 8 Cancellations to Date: 0 No Shows to Date: 0 Discharge Status: Achieved Goals Improved Function Independent with HEP Discharge Summary: 8 wks PO . Goals met. Demo indep with hand ROM ex MET Left D2-5 PIPj to > 90 deg MET Right D4 -5 PIPj to >80 deg MET Left PIPj ext to neutral MET Right PIPj ext to <10 deg nnot met Report bilateral hand sensation improved MET Report mild difficulty with daily activities hand strength MET Indep in hand ROM and strengthening ex. MET Electronically Signed By: Dianne Toledo OT CHT CLT Reviewed/agree with student documentation: Therapist: Please Sign and return to therapist, thank you for your referral.
== END 2023-04-13 09:53 | disposition home or self-care (01) ==
LOC: HO.OT 09:00
PROVIDERS: PCP Internal Medicine; Visit Provider Orthopaedic Surgery
DX: M65.331 Trigger finger, right middle finger (principal); M65.341 Trigger finger, right ring finger; M72.0 Palmar fascial fibromatosis [Dupuytren]
CPT/HCPCS: 97110; 97166; 97530

== ENCOUNTER 2023-05-22 12:13 | Outpatient (REF) | payer MEDICARE, OTHER, SELFPAY ==
[2023-05-22 13:07] LABS: MANUAL DIFF FLAG NO
[2023-05-22 13:40] LABS: Basophils Percent Auto 0.6 % (0-2); Eosinophils Absolute Auto 0.1 X10*3/uL (0.0-0.4); Eosinophils Percent Auto 1.8 % (0-4); Hematocrit 40.6 % (42.0-52.0); Hemoglobin 13.6 g/dl (14.0-18.0); Imm Gran Abs Auto 0.02 X10*3/uL (0.00-0.03); Imm Gran Pct Auto 0.4 % (0.0-0.4); Lymphocytes Absolute Auto 1.8 X10*3/uL (1.2-4.9); Lymphocytes Percent Auto 35.1 % (20-40); Mean Corpuscular HGB Conc 33.5 g/dl (31.0-36.0); Mean Corpuscular Hemoglobin 30.2 pg (27.0-33.0); Mean Corpuscular Volume 90.2 fL (80.0-98.0); Mean Platelet Volume 10.8 fL (9.4-12.4); Monocytes Absolute Auto 0.7 X10*3/uL (0.1-1.2); Monocytes Percent Auto 12.7 % (2-11); Neutrophils Absolute Auto 2.5 x10*3/uL (2.0-8.3); Neutrophils Percent Auto 49.4 % (45-73); Platelet Count 212 X10*3/uL (160-400); Red Cell Distribution Width 13.7 % (11.0-16.0); White Blood Count 5.1 X10*3/uL (4.8-10.8)
[2023-05-22 14:04] LABS: Alanine Aminotransferase 14 U/L (0-40); Albumin Level 3.7 g/dL (3.5-5.0); Alkaline Phosphatase 70 U/L (39-117); Anion Gap 16 (12-20); Aspartate Amino Transferase 21 U/L (5-37); Bilirubin Total 0.7 mg/dL (0.0-1.0); Blood Urea Nitrogen 13 mg/dL (9-16); Calcium 9.6 mg/dL (8.4-10.2); Carbon Dioxide 22 mmol/L (22-29); Chloride 99 mmol/L (96-108); Estimated Average Glucose 126 mg/dL; Estimated Glomerular Filt Rate > 60; Glucose Random 186 mg/dL (60-115); Hemoglobin A1C 149.9323 umol/L; Potassium 4.4 mmol/L (3.3-5.1); Sodium 133 mmol/L (135-145); Total Protein 6.6 g/dL (6.5-8.0)
== END 2023-05-22 12:14 | disposition home or self-care (01) ==
LOC: HO.10HDL 12:13
PROVIDERS: Visit Provider Internal Medicine
DX: E11.9 Type 2 diabetes mellitus without complications (principal); I10 Essential (primary) hypertension; I48.0 Paroxysmal atrial fibrillation; D64.9 Anemia, unspecified; Z79.4 Long term (current) use of insulin
CPT/HCPCS: 36415; 80053; 83036; 85025

== ENCOUNTER 2023-06-17 12:48 | Outpatient (AMB) | payer MEDICARE, OTHER, SELFPAY ==
[2023-06-17 12:51] VITALS: BP 146/74; PULSE 50; BMI 32.0
--- NOTE | 2023-06-17 12:51 | MHC.OFFVIS ---
Intake Vital Signs 06/17/23 12:51 Height 5 ft 11 in Weight 229 lb 11.547 oz BMI 32.0 BP 146/74 H Blood Pressure Location Lt brachial Position Sitting Pulse 50 Intake Visit Reasons: 1 year fu Intake Note: 1 year follow up Tin Flipper Required: No Accompanied by: Self / Same As Patient Allergies No Known Allergies [No Known Allergies*] Allergy (Verified 06/17/23 12:53) Medication List - Last Reconciled 06/17/23 by Jareth Teixeira MD blood-glucose sensor (Dexcom G6 Sensor device) blood-glucose transmitter (Dexcom G6 Transmitter device) As directed cholecalciferol (vitamin D3) PO doxazosin 2 mg PO BEDTIME glucagon 3 mg/actuation (Baqsimi) 3 mg intranasal ONCE PRN hydrochlorothiazide 25 mg PO DAILY insulin lispro (Humalog U-100 Insulin) via insulin pump [insulin pump-infus. set-meter pt has own insulin pump unknown basal rate/ changes cartridge every other day] lisinopril 40 mg PO DAILY metoprolol tartrate 25 mg See Protocol PO BID omega-3 fatty acids 500 mg PO DAILY oxycodone 5 mg PO Q6H PRN oxycodone-acetaminophen 5-325 mg 1 tab PO Q6H PRN pantoprazole 40 mg PO DAILY simvastatin 40 mg PO BEDTIME HPI HPI Comments History of Present Illness Details Abraham returns for follow-up regarding atrial arrhythmias. To recall, he has a history of suspected atrial flutter. About 2011, he had presumed atrial flutter at which time he underwent cardioversion. Around 2018, he again developed recurrent flutter with rapid rate in the context of respiratory infection. Subsequently, he underwent cardioversion again. He was placed on amiodarone for few months and then stopped. Tried using Multaq but was too expensive. Then he was on beta-blockers only but again had to be hospitalized with symptomatic atrial flutter. Then he underwent yet another cardioversion. Was placed on flecainide but then he felt totally exhausted and felt syncopal walking even short distances. Then we decreased the dosage. 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 There was no evidence of atrial flutter at all. Then had gastrointestinal bleeding from esophageal also. At that time, he had take NSAIDs with Coumadin. After discussion with EP, it was felt that there was no need for anticoagulation as there was no evidence of atrial flutter on the EP study and only AVNRT/AVRT. In the last few months, he states he actually feeling quite good. Physically active with no limitations. Getting along fine. [facility] Medical History Diabetes Elevated cholesterol Esophageal ulcer Essential hypertension Paroxysmal atrial flutter Sinus bradycardia SVT (supraventricular tachycardia) Surgical History H/O colonoscopy History of cardiac radiofrequency ablation (RFA) (~11/22/20) History of cardioversion (~11/2018) Hx of hand surgery Hx of hernia repair Hx of left inguinal hernia repair Hx of shoulder surgery Family History Father Colon cancer Mother Colon cancer Social History Household Members: Spouse Alcohol intake: never Patient Tobacco Use Status: Former Tobacco user Quit Date: >10 yr ago Tobacco use type: Cigarette service: No Current occupational status: retired Review of Systems Const Denies weakness ENT Denies dizziness Card Denies chest pain, Denies chest pain with activity, Denies syncope, Denies rapid heart rate, Denies pedal edema, Denies edema, Denies leg edema, Denies lightheadedness, Denies palpitations, Denies dyspnea, Denies dyspnea on exertion and Denies orthopnea Resp Denies cough, Denies dyspnea and Denies dyspnea on exertion GI Denies hematochezia and Denies change in stool character Musc Denies abnormal gait, Denies muscle cramps, Denies muscle weakness, Denies numbness, Denies radiating pain into limb and Denies tingling Neuro Denies abnormal gait, Denies dizziness, Denies syncope, Denies numbness, Denies tingling and Denies weakness Endo Denies palpitations Physical Exam Vital Signs: Last Vital Signs Pulse 50 06/17/23 12:51 BP 146/74 H 06/17/23 12:51 BMI result Body Mass Index 32.0 Const General: comfortable and no acute distress Orientation/consciousness: patient oriented x3 HEENT Other: Unremarkable Head: Yes normal to inspection Neck Neck: Yes normal visual inspection Chest Chest palpation & inspection: normal inspection of the chest Resp Auscultation: clear to auscultation bilaterally Cardio Palpation: normal PMI Heart sounds: S1 normal heart sound present, S2 normal heart sound present, no gallops, no murmurs and no rubs GI Palpation (GI): Soft to palpation Back/Spine/Pelvis Other: unremarkable Skin General skin exam: no rashes or lesions noted Neuro General: patient oriented x3 Extrem General: Yes normal to inspection Psych Mental Status: mental status grossly normal Assessment & Plan Assessment & Plan (1) SVT (supraventricular tachycardia): Code(s): I47.1 - Supraventricular tachycardia Plan: Based on the EKGs, thought to have rather atrial flutter but when he went for the EP study, 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 He underwent ablation of the left axillary pathway as well as slow pathway modification. Follow-up EP study was noninducible for any arrhythmias. Due to GI bleeding as well as there being no clear evidence of atrial fibrillation or flutter, he is off anticoagulation. Continue beta-blockers. No recurrence of any arrhythmias. (2) Diastolic dysfunction: Code(s): I51.89 - Other ill-defined heart diseases Plan: Last echocardiogram shows moderate diastolic dysfunction. Likely all from hypertension. He has no clinical symptoms or other signs of heart failure. (3) Pulmonary hypertension: Code(s): I27.20 - Pulmonary hypertension, unspecified Plan: From left heart diastolic dysfunction. Clinically, no symptoms. (4) Essential hypertension: Code(s): I10 - Essential (primary) hypertension Plan: On lisinopril and hydrochlorothiazide. Today's blood pressure is on the higher side but home blood pressures according to him much lower. (5) Esophageal ulcer: Code(s): K22.10 - Ulcer of esophagus without bleeding Plan: [facility], patient had upper GI bleeding from esophageal ulcer. Suspected from NSAIDs use. Now off anticoagulation. Coding Level of Care Code Est Pt Level 4 (39589) Diagnoses SVT (supraventricular tachycardia) I47.1 Diastolic dysfunction I51.89 Pulmonary hypertension I27.20 Essential hypertension I10 Esophageal ulcer K22.10
== END 2023-06-17 13:02 | disposition home or self-care (01) ==
PROVIDERS: PCP Internal Medicine; Referring Provider Internal Medicine; Visit Provider Internal Medicine
DX: I47.1 Supraventricular tachycardia (principal); I51.89 Other ill-defined heart diseases; I27.20 Pulmonary hypertension, unspecified; I10 Essential (primary) hypertension; K22.10 Ulcer of esophagus without bleeding
CPT/HCPCS: 99214

== ENCOUNTER → 2023-06-17 12:48 | Outpatient (BNVA) | payer MEDICARE, OTHER, SELFPAY | PROVIDERS: PCP Internal Medicine; Referring Provider Internal Medicine; Visit Provider Internal Medicine | DX: I47.1 Supraventricular tachycardia (principal); I51.89 Other ill-defined heart diseases; I27.20 Pulmonary hypertension, unspecified; I10 Essential (primary) hypertension; K22.10 Ulcer of esophagus without bleeding; Z79.899 Other long term (current) drug therapy | CPT/HCPCS: 99212 ==

== ENCOUNTER 2023-08-13 11:45 | Outpatient (REF) | payer MEDICARE, OTHER, SELFPAY ==
[2023-08-13 13:11] LABS: MANUAL DIFF FLAG NO
[2023-08-13 13:37] LABS: Basophils Percent Auto 0.4 % (0-2); Eosinophils Absolute Auto 0.1 X10*3/uL (0.0-0.4); Eosinophils Percent Auto 1.8 % (0-4); Hematocrit 40.2 % (42.0-52.0); Imm Gran Abs Auto 0.01 X10*3/uL (0.00-0.03); Imm Gran Pct Auto 0.2 % (0.0-0.4); Lymphocytes Absolute Auto 1.5 X10*3/uL (1.2-4.9); Lymphocytes Percent Auto 27.1 % (20-40); Mean Corpuscular HGB Conc 34.8 g/dl (31.0-36.0); Mean Corpuscular Hemoglobin 31.7 pg (27.0-33.0); Mean Corpuscular Volume 91.2 fL (80.0-98.0); Mean Platelet Volume 11.2 fL (9.4-12.4); Monocytes Absolute Auto 0.8 X10*3/uL (0.1-1.2); Monocytes Percent Auto 13.6 % (2-11); Neutrophils Absolute Auto 3.2 x10*3/uL (2.0-8.3); Neutrophils Percent Auto 56.9 % (45-73); Platelet Count 202 X10*3/uL (160-400); Red Blood Count 4.41 X10*6/uL (4.60-5.80); Red Cell Distribution Width 12.6 % (11.0-16.0); White Blood Count 5.6 X10*3/uL (4.8-10.8)
[2023-08-13 14:11] LABS: Alanine Aminotransferase 13 U/L (0-40); Albumin Level 3.8 g/dL (3.5-5.0); Alkaline Phosphatase 76 U/L (39-117); Anion Gap 13 (12-20); Aspartate Amino Transferase 22 U/L (5-37); Bilirubin Total 0.8 mg/dL (0.0-1.0); Blood Urea Nitrogen 16 mg/dL (9-16); Calcium 9.6 mg/dL (8.4-10.2); Carbon Dioxide 27 mmol/L (22-29); Chloride 97 mmol/L (96-108); Estimated Glomerular Filt Rate > 60; Glucose Random 116 mg/dL (60-115); Iron 84 mcg/dL (45-160); Percent Iron Saturation 34 % (15-50); Potassium 4.6 mmol/L (3.3-5.1); Sodium 132 mmol/L (135-145); Total Iron Binding Capacity 244 mcg/dL (228-428); Total Protein 6.7 g/dL (6.5-8.0); Unsaturated Iron Binding 160 ug/dL
== END 2023-08-13 11:46 | disposition home or self-care (01) ==
LOC: HO.10HDL 11:45
PROVIDERS: Visit Provider Internal Medicine
DX: I10 Essential (primary) hypertension (principal); I48.0 Paroxysmal atrial fibrillation; D64.9 Anemia, unspecified; E11.9 Type 2 diabetes mellitus without complications
CPT/HCPCS: 36415; 80053; 83540; 85025

== ENCOUNTER 2023-11-11 12:49 | Outpatient (AMB) | payer MEDICARE, OTHER, SELFPAY ==
--- NOTE | 2023-11-11 12:53 | A.OFFVIS_ITS ---
Intake Vital Signs 11/11/23 12:55 Height 5 ft 11 in Weight 231 lb 7.766 oz BMI 32.3 BP 152/80 H Blood Pressure Location Lt brachial Position Sitting Pulse 52 Intake Visit Reasons: R/S 1 year follow up Intake Note: 1 year follow up w/ EKG Software Security Architect Required: No Accompanied by: Self / Same As Patient Allergies No Known Allergies [No Known Allergies*] Allergy (Verified 11/11/23 12:56) Medication List - Last Reconciled 11/11/23 by Jareth Teixeira MD blood-glucose sensor (Dexcom G6 Sensor device) blood-glucose transmitter (Dexcom G6 Transmitter device) As directed cholecalciferol (vitamin D3) PO doxazosin 2 mg PO BEDTIME glucagon 3 mg/actuation (Baqsimi) 3 mg intranasal ONCE PRN hydrochlorothiazide 25 mg PO DAILY insulin lispro (Humalog U-100 Insulin) via insulin pump [insulin pump-infus. set-meter pt has own insulin pump unknown basal rate/ changes cartridge every other day] lisinopril 40 mg PO DAILY metoprolol tartrate 25 mg See Protocol PO BID omega-3 fatty acids 500 mg PO DAILY pantoprazole 40 mg PO DAILY simvastatin 40 mg PO BEDTIME HPI HPI Comments History of Present Illness Details Abraham returns for follow-up regarding atrial arrhythmias. To recall, he has a history of suspected atrial flutter. About 2011, he had presumed atrial flutter at which time he underwent cardioversion. Around 2018, he again developed recurrent flutter with rapid rate in the context of respiratory infection. Subsequently, he underwent cardioversion again. He was placed on amiodarone for few months and then stopped. Tried using Multaq but was too expensive. Then he was on beta-blockers only but again had to be hospitalized with symptomatic atrial flutter. Then he underwent yet another cardioversion. Was placed on flecainide but then he felt totally exhausted and felt syncopal walking even short distances. Then we decreased the dosage. 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 There was no evidence of atrial flutter at all. Then had gastrointestinal bleeding from esophageal also. At that time, he had take NSAIDs with Coumadin. After discussion with EP, it was felt that there was no need for anticoagulation as there was no evidence of atrial flutter on the EP study and only AVNRT/AVRT. Since last seen, he states he is feeling fine. No complaints like angina or shortness of breath or palpitations or in fact any cardiac sounding symptoms. [facility] Medical History Diabetes Elevated cholesterol Esophageal ulcer Essential hypertension Paroxysmal atrial flutter Sinus bradycardia SVT (supraventricular tachycardia) Surgical History Hx of hand surgery H/O colonoscopy Hx of shoulder surgery Hx of hernia repair Hx of left inguinal hernia repair History of cardiac radiofrequency ablation (RFA) (~11/22/20) History of cardioversion (~11/2018) Family History Father Colon cancer Mother Colon cancer Social History Household Members: Spouse Alcohol intake: never Patient Tobacco Use Status: Former Tobacco user Quit Date: >10 yr ago Tobacco use type: Cigarette service: No Current occupational status: retired Review of Systems Const Denies weakness ENT Denies dizziness Card Denies chest pain, Denies chest pain with activity, Denies syncope, Denies rapid heart rate, Denies pedal edema, Denies edema, Denies leg edema, Denies lightheadedness, Denies palpitations, Denies dyspnea, Denies dyspnea on exertion and Denies orthopnea Resp Denies cough, Denies dyspnea and Denies dyspnea on exertion GI Denies hematochezia and Denies change in stool character Musc Denies abnormal gait, Denies muscle cramps, Denies muscle weakness, Denies numbness, Denies radiating pain into limb and Denies tingling Neuro Denies abnormal gait, Denies dizziness, Denies syncope, Denies numbness, Denies tingling and Denies weakness Endo Denies palpitations Physical Exam Vital Signs: Last Vital Signs Pulse 52 11/11/23 12:55 BP 152/80 H 11/11/23 12:55 BMI result Body Mass Index 32.3 Const General: comfortable and no acute distress Orientation/consciousness: patient oriented x3 HEENT Other: Unremarkable Head: Yes normal to inspection Neck Neck: Yes normal visual inspection Chest Chest palpation & inspection: normal inspection of the chest Resp Auscultation: clear to auscultation bilaterally Cardio Palpation: normal PMI Heart sounds: S1 normal heart sound present, S2 normal heart sound present, no gallops, no murmurs and no rubs GI Palpation (GI): Soft to palpation Back/Spine/Pelvis Other: unremarkable Skin General skin exam: no rashes or lesions noted Neuro General: patient oriented x3 Extrem General: Yes normal to inspection Psych Mental Status: mental status grossly normal Office Procedures EKG Details: EKG with sinus bradycardia, 52/Min; no significant ST-T changes; top normal NE at 200 millisecond; [place]. 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 He underwent ablation of the left accessory pathway. Follow-up EP study was noninducible for any arrhythmias. Due to GI bleeding as well as there being no clear evidence of atrial fibrillation or flutter, he is off anticoagulation. Continue beta-blockers. No recurrence of any arrhythmias. (2) Diastolic dysfunction: Code(s): I51.89 - Other ill-defined heart diseases Plan: Last echocardiogram shows moderate diastolic dysfunction. Likely all from hypertension. He has no clinical symptoms or other signs of heart failure. (3) Pulmonary hypertension: Code(s): I27.20 - Pulmonary hypertension, unspecified Plan: From left heart diastolic dysfunction. Clinically, no symptoms. (4) Essential hypertension: Code(s): I10 - Essential (primary) hypertension Plan: On lisinopril and hydrochlorothiazide. Blood pressure again on the higher side but he states home blood pressures only in the 120s and 130s. Advised him to keep track and let us know. (5) Esophageal ulcer: Code(s): K22.10 - Ulcer of esophagus without bleeding Plan: Per [facility], patient had upper GI bleeding from esophageal ulcer. Suspected from NSAIDs use. Now off anticoagulation. Coding Level of Care Code Est Pt Level 4 (18965) Diagnoses SVT (supraventricular tachycardia) I47.1 Diastolic dysfunction I51.89 Pulmonary hypertension I27.20 Essential hypertension I10 Esophageal ulcer K22.10 CPT Codes EKG - CPT: 63045-[id number], Complete ([id number])
[2023-11-11 12:55] VITALS: BP 152/80; PULSE 52; BMI 32.3
== END 2023-11-11 13:10 | disposition home or self-care (01) ==
PROVIDERS: PCP Internal Medicine; Visit Provider Internal Medicine
DX: I47.19 Other supraventricular tachycardia (principal); I51.89 Other ill-defined heart diseases; I27.20 Pulmonary hypertension, unspecified; I10 Essential (primary) hypertension; K22.10 Ulcer of esophagus without bleeding
CPT/HCPCS: 93010; 99214

== ENCOUNTER → 2023-11-11 12:49 | Outpatient (BNVA) | payer MEDICARE, OTHER, SELFPAY | PROVIDERS: PCP Internal Medicine; Visit Provider Internal Medicine | DX: I47.10 Supraventricular tachycardia, unspecified (principal); I51.89 Other ill-defined heart diseases; I27.20 Pulmonary hypertension, unspecified; I10 Essential (primary) hypertension; K22.10 Ulcer of esophagus without bleeding; Z79.899 Other long term (current) drug therapy | CPT/HCPCS: 93005; 99212 ==

== ENCOUNTER 2023-11-20 09:24 | Outpatient (REF) | payer MEDICARE, OTHER, SELFPAY ==
[2023-11-20 10:53] LABS: MANUAL DIFF FLAG NO
[2023-11-20 11:07] LABS: Basophils Percent Auto 0.6 % (0-2); Eosinophils Absolute Auto 0.1 X10*3/uL (0.0-0.4); Eosinophils Percent Auto 1.5 % (0-4); Hematocrit 40.5 % (42.0-52.0); Imm Gran Abs Auto 0.01 X10*3/uL (0.00-0.03); Imm Gran Pct Auto 0.2 % (0.0-0.4); Lymphocytes Absolute Auto 1.5 X10*3/uL (1.2-4.9); Lymphocytes Percent Auto 30.9 % (20-40); Mean Corpuscular HGB Conc 34.6 g/dl (31.0-36.0); Mean Corpuscular Volume 92.5 fL (80.0-98.0); Mean Platelet Volume 10.7 fL (9.4-12.4); Monocytes Absolute Auto 0.6 X10*3/uL (0.1-1.2); Monocytes Percent Auto 11.7 % (2-11); Neutrophils Absolute Auto 2.6 x10*3/uL (2.0-8.3); Neutrophils Percent Auto 55.1 % (45-73); Platelet Count 207 X10*3/uL (160-400); Red Blood Count 4.38 X10*6/uL (4.60-5.80); Red Cell Distribution Width 13.1 % (11.0-16.0); White Blood Count 4.7 X10*3/uL (4.8-10.8)
[2023-11-20 11:13] LABS: Alanine Aminotransferase 13 U/L (0-40); Albumin Level 3.8 g/dL (3.5-5.0); Alkaline Phosphatase 67 U/L (39-117); Anion Gap 11 (12-20); Aspartate Amino Transferase 22 U/L (5-37); Blood Urea Nitrogen 18 mg/dL (9-16); Calcium 9.2 mg/dL (8.4-10.2); Carbon Dioxide 28 mmol/L (22-29); Chloride 102 mmol/L (96-108); Cholesterol 150 mg/dL (<200); Estimated Average Glucose 117 mg/dL; Estimated Glomerular Filt Rate > 60; Glucose Fasting 130 mg/dL (60-99); HDL Cholesterol 80 mg/dL (>40); Hemoglobin A1c % 5.7 % (<6.0); LDL Cholesterol Calculated 63 mg/dL (<100); Potassium 4.4 mmol/L (3.3-5.1); Sodium 137 mmol/L (135-145); Total Protein 6.6 g/dL (6.5-8.0); Triglycerides 39 mg/dL (<150)
[2023-11-20 11:38] LABS: Prostate Specific Antigen Scr 0.75 ng/mL (<0.05-4.0)
[2023-11-20 12:39] LABS: Creatinine Urine 119.94 mg/dL; Microalbum/Creatinine Ratio Ur 4.1 ug/mg cr (<30)
== END 2023-11-20 09:25 | disposition home or self-care (01) ==
LOC: HO.10HDL 09:24
PROVIDERS: Visit Provider Internal Medicine
DX: E11.22 Type 2 diabetes mellitus with diabetic chronic kidney disease (principal); I12.9 Hypertensive chronic kidney disease with stage 1 through stage 4 chronic kidney disease, or unspecified chronic kidney disease; K21.9 Gastro-esophageal reflux disease without esophagitis; E78.00 Pure hypercholesterolemia, unspecified; N18.9 Chronic kidney disease, unspecified; Z12.5 Encounter for screening for malignant neoplasm of prostate
CPT/HCPCS: 36415; 80053; 80061; 82043; 82570; 83036; 84153; 85025

== ENCOUNTER 2024-03-30 14:51 | Outpatient (REF) | payer MEDICARE, OTHER, SELFPAY ==
--- NOTE | ~2024-03-30 | XR_ITS ---
EXAMINATION: XR LUMBAR SPINE XR PELVIS CLINICAL INFORMATION: Patient's stated chronic sciatic pain, assess degenerative disc disease, lumbar pain. COMPARISON: None available. TECHNIQUE: 3 views of the lumbar spine. 2 AP views of the pelvis. FINDINGS: PELVIS: Bones are diffusely demineralized. Moderate degenerative changes with joint space narrowing and hypertrophic change on AP views of the bilateral hips. Pubic symphysis is maintained. Bilateral sacroiliac joints are maintained. LUMBAR SPINE: Dextroscoliosis of [id number]-sp-chhch lumbar spine. Bones are diffusely demineralized. Advanced multilevel facet arthritis. Multilevel lumbar spondylosis with loss of disc space height most advanced at L4-L5. Moderate loss of disc space height at L5-S1 and at L3-L4. Atherosclerotic iliac calcifications. XR/XR lumbar spine 2-3V IMPRESSION: 1. 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 2. Multilevel lumbar spondylosis most advanced at L4-L5. 3. Advanced multilevel facet arthritis.
--- NOTE | ~2024-03-30 | XR_ITS ---
EXAMINATION: XR LUMBAR SPINE XR PELVIS CLINICAL INFORMATION: Patient's stated chronic sciatic pain, assess degenerative disc disease, lumbar pain. COMPARISON: None available. TECHNIQUE: 3 views of the lumbar spine. 2 AP views of the pelvis. FINDINGS: PELVIS: Bones are diffusely demineralized. Moderate degenerative changes with joint space narrowing and hypertrophic change on AP views of the bilateral hips. Pubic symphysis is maintained. Bilateral sacroiliac joints are maintained. LUMBAR SPINE: Dextroscoliosis of [id number] lumbar spine. Bones are diffusely demineralized. Advanced multilevel facet arthritis. Multilevel lumbar spondylosis with loss of disc space height most advanced at L4-L5. Moderate loss of disc space height at L5-S1 and at L3-L4. Atherosclerotic iliac calcifications. XR/XR pelvis 1-2V IMPRESSION: 1. 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 2. Multilevel lumbar spondylosis most advanced at L4-L5. 3. Advanced multilevel facet arthritis.
== END 2024-03-30 14:52 | disposition home or self-care (01) ==
LOC: HO.XRAY 14:51
PROVIDERS: PCP Internal Medicine; Visit Provider Internal Medicine
DX: M54.50 Low back pain, unspecified (principal); M25.552 Pain in left hip
CPT/HCPCS: 72100; 72170

== ENCOUNTER 2024-06-03 10:19 | Outpatient (REF) | payer MEDICARE, OTHER, SELFPAY ==
[2024-06-03 13:20] LABS: MANUAL DIFF FLAG NO
[2024-06-03 13:23] LABS: Basophils Percent Auto 0.6 % (0-2); Eosinophils Absolute Auto 0.1 X10*3/uL (0.0-0.4); Eosinophils Percent Auto 1.5 % (0-4); Hematocrit 35.1 % (42.0-52.0); Hemoglobin 12.7 g/dl (14.0-18.0); Imm Gran Abs Auto 0.01 X10*3/uL (0.00-0.03); Imm Gran Pct Auto 0.2 % (0.0-0.4); Lymphocytes Absolute Auto 1.5 X10*3/uL (1.2-4.9); Lymphocytes Percent Auto 30.2 % (20-40); Mean Corpuscular HGB Conc 36.2 g/dl (31.0-36.0); Mean Corpuscular Volume 96.7 fL (80.0-98.0); Mean Platelet Volume 10.8 fL (9.4-12.4); Monocytes Absolute Auto 0.6 X10*3/uL (0.1-1.2); Monocytes Percent Auto 12.1 % (2-11); Neutrophils Absolute Auto 2.7 x10*3/uL (2.0-8.3); Neutrophils Percent Auto 55.4 % (45-73); Platelet Count 181 X10*3/uL (160-400); Red Blood Count 3.63 X10*6/uL (4.60-5.80); Red Cell Distribution Width 13.5 % (11.0-16.0); White Blood Count 4.8 X10*3/uL (4.8-10.8)
[2024-06-03 13:42] LABS: Alanine Aminotransferase 16 U/L (0-40); Albumin Level 3.9 g/dL (3.5-5.0); Alkaline Phosphatase 81 U/L (39-117); Anion Gap 11 (12-20); Aspartate Amino Transferase 25 U/L (5-37); Bilirubin Total 0.8 mg/dL (0.0-1.0); Blood Urea Nitrogen 12 mg/dL (9-16); Calcium 9.5 mg/dL (8.4-10.2); Carbon Dioxide 28 mmol/L (22-29); Chloride 102 mmol/L (96-108); Estimated Glomerular Filt Rate > 60; Glucose Random 122 mg/dL (60-115); Potassium 4.5 mmol/L (3.3-5.1); Sodium 136 mmol/L (135-145); Total Protein 6.5 g/dL (6.5-8.0)
[2024-06-03 13:58] LABS: Estimated Average Glucose 146 mg/dL; Hemoglobin A1c % 6.7 % (<6.0)
[2024-06-03 14:12] LABS: Creatinine Urine 43.15 mg/dL; Microalbumin Urine < 5.0 mg/L
== END 2024-06-03 10:20 | disposition home or self-care (01) ==
LOC: HO.10HDL 10:19
PROVIDERS: Visit Provider Internal Medicine
DX: E11.9 Type 2 diabetes mellitus without complications (principal); I10 Essential (primary) hypertension
CPT/HCPCS: 36415; 80053; 82043; 82570; 83036; 85025

== ENCOUNTER 2024-11-09 12:15 | Outpatient (AMB) | payer MEDICARE, OTHER, SELFPAY ==
[2024-11-09 12:24] VITALS: BP 138/68; PULSE 50; BMI 31.1
--- NOTE | 2024-11-09 12:24 | A.OFFVIS_ITS ---
Vital Signs 11/09/24 12:24 Height 5 ft 11 in Weight 222 lb 10.67 oz BMI 31.1 BP 138/68 Blood Pressure Location Lt brachial Pulse 50 Pulse Source Monitor Intake Visit Reasons: 1 yr f/up Allergies No Known Allergies [No Known Allergies*] Allergy (Verified 11/11/23 12:56) Medication List - Last Reconciled 11/09/24 by Jareth Teixeira MD blood-glucose sensor (Dexcom G6 Sensor device) blood-glucose transmitter (Dexcom G6 Transmitter device) As directed cholecalciferol (vitamin D3) PO doxazosin 2 mg PO BEDTIME glucagon 3 mg/actuation (Baqsimi) 3 mg intranasal ONCE PRN hydrochlorothiazide 25 mg PO DAILY insulin lispro (Humalog U-100 Insulin) via insulin pump [insulin pump-infus. set-meter pt has own insulin pump unknown basal rate/ changes cartridge every other day] lisinopril 40 mg PO DAILY metoprolol tartrate 25 mg See Protocol PO BID omega-3 fatty acids 500 mg PO DAILY pantoprazole 40 mg PO DAILY simvastatin 40 mg PO BEDTIME HPI Comments Details: Abraham returns for follow-up regarding atrial arrhythmias. To recall, he has a history of suspected atrial flutter. About 2011, he had presumed atrial flutter at which time he underwent cardioversion. Around 2018, he again developed recurrent flutter with rapid rate in the context of respiratory infection. Subsequently, he underwent cardioversion again. Tried different medications including amiodarone, Multaq, flecainide. 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 There was no evidence of atrial flutter at all. Then had gastrointestinal bleeding from esophageal also. At that time, he had taken NSAIDs with Coumadin. After discussion with EP, it was felt that there was no need for anticoagulation as there was no evidence of atrial flutter on the EP study and only AVNRT/AVRT. Overall, no new concerns. He feels fine. [facility] Medical History Esophageal ulcer SVT (supraventricular tachycardia) Elevated cholesterol Diabetes Essential hypertension Sinus bradycardia Paroxysmal atrial flutter Surgical History Hx of hand surgery H/O colonoscopy Hx of shoulder surgery Hx of hernia repair Hx of left inguinal hernia repair History of cardiac radiofrequency ablation (RFA) (~11/22/20) History of cardioversion (~11/2018) Family History Father Colon cancer Mother Colon cancer Social History Household Members: Spouse Alcohol intake: never Patient Tobacco Use Status: Former Tobacco user Tobacco use type: Cigarette service: No Current occupational status: retired Review of Systems Const Denies weakness ENT Denies dizziness Card Denies chest pain, Denies chest pain with activity, Denies syncope, Denies rapid heart rate, Denies pedal edema, Denies edema, Denies leg edema, Denies lightheadedness, Denies palpitations, Denies dyspnea, Denies dyspnea on exertion and Denies orthopnea Resp Denies cough, Denies dyspnea and Denies dyspnea on exertion GI Denies hematochezia and Denies change in stool character Musc Denies abnormal gait, Denies muscle cramps, Denies muscle weakness, Denies numbness, Denies radiating pain into limb and Denies tingling Neuro Denies abnormal gait, Denies dizziness, Denies syncope, Denies numbness, Denies tingling and Denies weakness Endo Denies palpitations Physical Exam Vital Signs: Last Vital Signs Pulse 50 11/09/24 12:24 BP 138/68 11/09/24 12:24 BMI result Body Mass Index 31.1 Const General: comfortable and no acute distress Orientation/consciousness: patient oriented x3 HEENT Other: Unremarkable Head: Yes normal to inspection Neck Neck: Yes normal visual inspection Chest Chest palpation & inspection: normal inspection of the chest Resp Auscultation: clear to auscultation bilaterally Cardio Palpation: normal PMI Heart sounds: S1 normal heart sound present, S2 normal heart sound present, no gallops, no murmurs and no rubs GI Palpation (GI): Soft to palpation Back/Spine/Pelvis Other: unremarkable Skin General skin exam: no rashes or lesions noted Neuro General: patient oriented x3 Extrem General: Yes normal to inspection Psych Mental Status: mental status grossly normal Office Procedures EKG Details: EKG with sinus bradycardia at 50/Min; inferior T inversions in lead 3/AVF; normal AK and corrected QT. Inferior changes not seen in the last EKG. 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 He underwent ablation of the left accessory pathway. Follow-up EP study was noninducible for any arrhythmias. Due to GI bleeding as well as there being no clear evidence of atrial fibrillation or flutter, he is off anticoagulation. Continue beta-blockers. No recurrence of any arrhythmias. (2) Diastolic dysfunction: Code(s): I51.89 - Other ill-defined heart diseases Category: Medical Plan: Last echocardiogram shows moderate diastolic dysfunction. Likely all from hypertension. He has no clinical symptoms or other signs of heart failure. (3) Pulmonary hypertension: Code(s): I27.20 - Pulmonary hypertension, unspecified Category: Medical Plan: From left heart diastolic dysfunction. Clinically, no symptoms. (4) Essential hypertension: Code(s): I10 - Essential (primary) hypertension Category: Medical Plan: On lisinopril and hydrochlorothiazide. (5) Esophageal ulcer: Code(s): K22.10 - Ulcer of esophagus without bleeding Category: Medical Plan: [facility] patient had upper GI bleeding from esophageal ulcer. Suspected from NSAIDs use. Now off anticoagulation. (6) Abnormal EKG: Code(s): R94.31 - Abnormal electrocardiogram [ECG] [EKG] Category: Medical Plan: Inferior T inversions not previously seen. Clinically, no angina. Obtain echocardiogram/stress. Orders: Orders CA echo transthoracic complete Today I25.10 - Atherosclerotic heart disease of [place] coronary artery without angina pectoris NM cardiolite stress test Today R07.2 - Precordial pain CA stress test Today R07.2 - Precordial pain Coding Level of Care Code Est Pt Level 4 (18990) Diagnoses SVT (supraventricular tachycardia) I47.1 Diastolic dysfunction I51.89 Pulmonary hypertension I27.20 Essential hypertension I10 Esophageal ulcer K22.10 Abnormal EKG R94.31 CPT Codes EKG - CPT: 42051-Vljpjwxhjhrqjsrkb, Complete ([id number])
== END 2024-11-09 13:08 | disposition home or self-care (01) ==
PROVIDERS: PCP Internal Medicine; Visit Provider Internal Medicine
DX: I47.10 Supraventricular tachycardia, unspecified (principal); I51.89 Other ill-defined heart diseases; I27.20 Pulmonary hypertension, unspecified; I10 Essential (primary) hypertension; K22.10 Ulcer of esophagus without bleeding; R94.31 Abnormal electrocardiogram [ECG] [EKG]
CPT/HCPCS: 93010; 99214

== ENCOUNTER → 2024-11-09 12:15 | Outpatient (BNVA) | payer MEDICARE, OTHER, SELFPAY | PROVIDERS: PCP Internal Medicine; Visit Provider Internal Medicine | DX: I47.10 Supraventricular tachycardia, unspecified (principal); I11.9 Hypertensive heart disease without heart failure; I27.20 Pulmonary hypertension, unspecified; I25.10 Atherosclerotic heart disease of native coronary artery without angina pectoris; K22.10 Ulcer of esophagus without bleeding; R94.31 Abnormal electrocardiogram [ECG] [EKG]; R07.2 Precordial pain | CPT/HCPCS: 93005; 99212 ==

== ENCOUNTER 2024-12-05 10:31 | Outpatient (REF) | payer MEDICARE, OTHER, SELFPAY ==
[2024-12-05 11:04] LABS: MANUAL DIFF FLAG NO
--- OUTSIDE RECORDS SUMMARY | 2024-12-05 11:26 | XMS_ITS | Patient Health Record ---
Author Organization [facility] Address [address] [place] [id number] Care Team Providers Care Scalper Operator Name Role Phone Louis Elizabeth MD Primary Care Provider Girma Oliva Unavailable [phone] REASON FOR REFERRAL No Information MEDICATIONS Medication SIG (Take, Route, Frequency, Duration) Notes Start Date End Date Status Fish Oil Burp-Less 500 MG 1 capsule Oral ly Once a day Active Amiodarone HCl 200 MG 1 tablet Orally On ce a day for 30 day(s) Active Lisinopril 40 MG 1 tablet Orally Once a day for 30 day(s) Active Insulin Lispro 100 UNIT/ML as directed/7 5 units Subcutaneous as directed Active Omeprazole 40 MG 1 capsule Orally Onc e a day for 30 day(s) Active Warfarin Sodium 10 MG 1 tablet Orally On ce a day Active Metoprolol Tartrate 25 MG 1 tablet with food Orally Twice a day Active Simvastatin 20 MG 1 tablet in the even ing Orally Once a day Active hydroCHLOROthiazide 25 MG 1 capsule in t he morning Orally Once a day Active IMMUNIZATIONS Vaccine Route Administration Date Status Comme nts Influenza Unknown 06/26/2018 Administered Influenza Unknown 06/26/2020 Administered SOCIAL HISTORY Sex Assigned At : Social History Observation Description Sex Assigned At Unknown Alcohol Screen Question Answer Notes Did you have a drink contain ing alcohol in the past year? Yes How often did you have a dri nk containing alcohol in the past year? Monthly or less (1 point) How many drinks did you have on a typical day when you were drinking in the past year? 1 or 2 drinks (0 point) How often did you have 6 or more drinks on one occasion in the past year? Less than monthly (1 point) Points 2 Interpretation Negative PROBLEMS Problem Type ICD Code Onset Dates Problem Status W/U Status Risk SNOMED Code Notes Problem Encounter for screening for malignant neoplasm of colon (Z12.11) Active confirmed 383005517 Problem Preprocedural examination (Z01.818) Active confirmed 203035059250095 Problem History of colon polyps (Z86.010) Active confirmed History of polyp of colon (832044568) Problem Family history of colon cancer (Z80.0) Active confirmed 127213587 Problem Hx of adenomatous colonic polyps (Z86.010) Active confirmed 031878207 Problem Diverticulosis of sigmoid colon (K57.30) Active confirmed Diverticulosis of sigmoid colon (595076872) Problem Long-term (current) use of anticoagulants, INR goal 2.0-3.0 (Z79.01) Active confirmed 100558769 PLAN OF TREATMENT Future Test Test Name Order Date COLONOSCOPY 09/14/2013 COLONOSCOPY 02/01/2019 COLONOSCOPY 03/22/2021 Insurance Providers Payer Name Payer Address Payer Phone Subscriber Number Group Number Insured Name Patient Relationship to Insured Coverage Start Date Coverage End Date MEDICARE OF [place] [address] [place] [address] [phone] [id number] HAMLET YOUNG Self - patient is the insured [facility] [address] [place] [address] [phone] [id number] HAMLET YOUNG Self - patient is the insured MEDICAL (GENERAL) HISTORY Medical History History ICD Code Denies [place],CVA,Lung disease,renal disease IDDM--on a pump Hypertension Urosepsis in Jun 2013 at [facility] 3 or 4 colonoscopies at [facility]-all neg for polyps--last one was before 2007 Started on Coumadin for Atri al fib when hospitalized in 06/2013 for the sepsis--sees Dr. Teixeira--s/p cardioversion in 11/2018 ? of an ulcer several yrs ago--started o n Prilosec Colonoscopy in 10/2013--negat [place] except for diverticulosis and minimal internal hemorrhoids Colonoscopy 02/2019 with a 5x15mm flat tu bular adenoma removed from the cecum Afib with an ablation 10/2020 at [facility] -sees Dr. Teixeira Surgical History Surgery Date(Month/Year) rotator cuff tear repair 2000 hernia repair left inguinal 2018 hernia repair 2019
--- OUTSIDE RECORDS SUMMARY | 2024-12-05 11:27 | XMS_ITS | Patient Health Record ---
Author Organization [facility] Address [address] [place] [address] Care Team Providers Care Scientific Affairs Manager Name Role Phone Louis Elizabeth MD Primary Care Provider Darline Ricks Unavailable [phone] Allergies No Known Allergies Results Component Value Reference Range Notes HEMOGLOBIN A1C (GLYCOHEMOGLO BIN) Reviewed date:10/06/2024 01:18:31 PM Interpretation: Performing Lab: Notes/Report: TOTAL HEMOGLOBIN (HGBA1C) 5.9 HEMOGLOBIN A1C (GLYCOHEMOGLO BIN) Reviewed date:11/06/2024 07:39:47 AM Interpretation: Performing Lab: Notes/Report: HEMOGLOBIN A1C % (HH) 5.9 HEMOGLOBIN A1C (GLYCOHEMOGLO BIN) Reviewed date:03/07/2024 02:52:43 PM Interpretation: Performing Lab: Notes/Report: HEMOGLOBIN A1C % (HH) 5.9 Reason For Referral No Information Medications Medication SIG (Take, Route, Frequency, Duration) Notes Start Date End Date Status Vitamin E Active Metoprolol Tartrate Active PriLOSEC Active Omeprazole Active Zestril Active Simvastatin Active Microzide Not-Taking Vitamin D (Cholecalciferol) Active Aspirin Not-Taking zzzCompression Stockings 20-30mm Hg . . . for . Active Amiodarone HCl 200 MG Orally Active Bag [place] Active Warfarin Sodium Not- Taking Fish Oil Active Hydrocortisone 2.5 % as directed Externally to feet Twice a day for 30 days Active hydroCHLOROthiazide Active amLODIPine Besylate 5 MG Orally Active HumaLOG Not-Taking Metoprolol & Diet Manage Prod Active Lisinopril 40 MG Orally Act cliff Immunizations Vaccine Route Administration Date Status Comme [facility] COVID-19 Moderna Vaccine Unknown 01/24/2021 Administere d 1st 12/25/2020 Influenza Unknown 09/21/2015 Administered Influenza Unknown 08/04/2017 Administered Influenza Unknown 08/10/2018 Administered Influenza Unknown 08/11/2019 Administered Influenza Unknown 07/30/2020 Administered Influenza Unknown 06/26/2022 Administered Influenza Unknown 06/26/2023 Administered Pneumococcal Unknown 09/21/2015 Administered Social History Tobacco Use: Social History Observation Description Date Details (start date - stop date) Never Smoker NA - NA Tobacco Use/Smoking Question Answer Notes Are you a: nonsmoker Additional Findings: Tobacco Non-User Current no n-smoker Alcohol Screen Question Answer Notes Did you have a drink containing alcohol in the p ast year? No Points 0 Interpretation Negative Tobacco use other than smoking: Question Answer Notes Are you an other tobacco user? No Section Notes: Flu Shot- Aug 2015 Eye exam April 2015 Flu Shot- Aug 2015 Eye exam April 2015 Flu Shot- Aug 2015 Eye exam April 2015 Flu Shot- Aug 2015 Eye exam April 2015 Flu Shot- Aug 2015 Eye exam April 2015 Problems Problem Type SNOMED Code ICD Code Onset Dates Problem Status W/U Status Risk Notes Problem Acquired hammer toe of right foot (2767066244954034 ) Other hammer toe(s) (acquired), right foot (M20.41) Active confirmed Problem Acquired hammer toe of left foot (1814353218301891 ) Other hammer toe(s) (acquired), left foot (M20.42) Active confirmed Problem Polyneuropathy due to diabetes mellitus type I (006322897) Type 1 diabetes mellitus with diabetic polyneuropathy (E10.42) Active confirmed Problem 32058200 Essential hypertension (I10) Active confirmed Vital Signs Blood pressure diastolic 80 mm Hg 10/06/2024 Height 5ft10.5in in 10/06/2024 Blood pressure systolic 120 mm Hg 10/06/2024 Weight 222 lbs 10/06/2024 BMI 31.4 kg/m2 10/06/2024 Procedures Procedure Date Ordered Date Performed Result Body Sit e 26664-ACAGEIO NAIL, 6 OR MORE 12/07/2023 N/A 45391-MKGI SKIN LESIONS, OVER 4 12/07/2023 N/A 16534-KRUXUKV NAIL, 6 OR MORE 03/07/2024 N/A 99724-Xfwszqxk Plate 03/07/2024 N/A 44978-Illsaxwl Plate Each Additional 03/07/2024 N/A 50125-UXCV SKIN LESIONS, OVER 4 03/07/2024 N/A 00315-AMPHNMD NAIL, 6 OR MORE 06/30/2024 N/A 87285-Juxannhk Plate 06/30/2024 N/A 15298-ZTGD SKIN LESIONS, OVER 4 06/30/2024 N/A 18540-YWTBBNQ NAIL, 6 OR MORE 10/06/2024 N/A 33480-IRNT SKIN LESIONS, OVER 4 10/06/2024 N/A Encounters Encounter Location Date Provider Diagnosis [address] [address] 12/07/2023 Darline Black Type 1 diabetes mellitus with diabetic polyneuropathy E10.42 and Tinea unguium B35.[address] [address] 03/07/2024 Darline Black Type 1 diabetes mellitus with diabetic polyneuropathy E10.42 ; Tinea unguium B35.1 and Ingrown nail L60.[address] [address] 06/30/2024 Darline Black Type 1 diabetes mellitus with diabetic polyneuropathy E10.42 ; Tinea unguium B35.1 and Ingrown nail L60.[address] [address] 10/06/2024 Darline Black Type 1 diabetes mellitus with diabetic polyneuropathy E10.42 and Tinea unguium B35.1 Assessments Encounter Date Diagnosis (ICD Code) Assessment Notes Treatment Notes Treatment Clinical Notes Section Notes 12/07/2023 Type 1 diabetes mellitus with diabetic polyneuropathy (ICD-10 - E10.42) 03/07/2024 Type 1 diabetes mellitus with diabetic polyneuropathy (ICD-10 - E10.42) 06/30/2024 Tinea unguium (ICD-10 - B35.1) 06/30/2024 Type 1 diabetes mellitus with diabetic polyneuropathy (ICD-10 - E10.42) 10/06/2024 Tinea unguium (ICD-10 - B35.1) 10/06/2024 Type 1 diabetes mellitus with diabetic polyneuropathy (ICD-10 - E10.42) 03/07/2024 Tinea unguium (ICD-10 - B35.1) 12/07/2023 Tinea unguium (ICD-10 - B35.1) 06/30/2024 Ingrown nail (ICD-10 - L60.0) 03/07/2024 Ingrown nail (ICD-10 - L60.0) Plan Of Treatment Pending Test Test Name Order Date 71338-SXZOOCY NAIL, 6 OR MORE 10/10/2015 97086-GWFKWQM NAIL, 6 OR MORE 01/09/2016 04866-TQZZBMT NAIL, 6 OR MORE 04/09/2016 40163-CSPNPLV NAIL, 6 OR MORE 07/16/2016 84137-DWEILTL NAIL, 6 OR MORE 10/30/2016 69030-EXBSXOJ NAIL, 6 OR MORE 01/29/2017 53603-LHJMFBY NAIL, 6 OR MORE 05/11/2017 52665-BSFCWQU NAIL, 6 OR MORE 08/10/2017 26151-XSOHYXD NAIL, 6 OR MORE 11/19/2017 45592-ZXIGNNR NAIL, 6 OR MORE 02/18/2018 61877-TENHEYZ NAIL, 6 OR MORE 05/20/2018 92799-HXKUOKF NAIL, 6 OR MORE 08/19/2018 09158-ABUQPWE NAIL, 6 OR MORE 11/22/2018 67065-DBQSUSX NAIL, 6 OR MORE 02/03/2019 40973-ZGJRHJT NAIL, 6 OR MORE 05/09/2019 57484-PKTXWWP NAIL, 6 OR MORE 08/11/2019 80925-GSBZSGK NAIL, 6 OR MORE 11/17/2019 50856-KOQJJXB NAIL, 6 OR MORE 02/20/2020 96350-BSFWCWL NAIL, 6 OR MORE 05/21/2020 26735-ZTXGSYU NAIL, 6 OR MORE 08/23/2020 46523-GNWEGHE NAIL, 6 OR MORE 12/03/2020 62200-QWOOOZW NAIL, 6 OR MORE 03/04/2021 14584-DVZHEZP NAIL, 6 OR MORE 06/10/2021 67413-URPWFHY NAIL, 6 OR MORE 09/16/2021 39097-UEQQKDH NAIL, 6 OR MORE 01/06/2022 77316-NYNBXXI NAIL, 6 OR MORE 04/10/2022 55183-PNESTSP NAIL, 6 OR MORE 07/14/2022 97463-MVVWNCQ NAIL, 6 OR MORE 11/03/2022 89477-DFQEKUP NAIL, 6 OR MORE 02/23/2023 45243-YAJUXEK NAIL, 6 OR MORE 06/08/2023 10722-TIKGYPD NAIL, 6 OR MORE 08/31/2023 27728-ZCPYEQE NAIL, 6 OR MORE 12/07/2023 71944-HKQCATA NAIL, 6 OR MORE 03/07/2024 52425-VTNYOZD NAIL, 6 OR MORE 06/30/2024 11377-ICLBTJQ NAIL, 6 OR MORE 10/06/2024 96219-Qnty Destruction, 1-11/03/2022 94193-Csry Destruction, 1-02/23/2023 77840-Ixtitgfs Plate 02/23/2023 87129-Ubbgiyug Plate 01/06/2022 37210-Yftvxauy Plate 07/14/2022 46313-Ypsjxmid Plate 04/10/2022 94425-Hzlxajip Plate 06/08/2023 66368-Lnyzmbee Plate 06/30/2024 33289-Ivagrcrb Plate 03/07/2024 96293-Allczavw Plate 09/16/2021 92157-Rbibsiuo Plate 06/10/2021 28556-Jhgxavea Plate 12/03/2020 27241-Iuiflxzb Plate 05/09/2019 69892-Vnfthqpw Plate 10/10/2015 95004-Vjpfawpf Plate 01/29/2017 99109-Dwxrujub Plate 10/30/2016 54345-Lnjunlhy Plate 07/16/2016 09636-Wquozrlz Plate 04/09/2016 06275-Cvcaoxge Plate 01/09/2016 25546-Snnntvfz Plate Each Additional 01697-Uuyadyar Plate Each Additional 32707-Ztehldoo Plate Each Additional 07775-Urfvtkes Plate Each Additional 02/2017 60208-Eazxkfnd Plate Each Additional 03/2017 61256-Kpqxhvdw Plate Each Additional 39800-Oqjkyuxn Plate Each Additional 05/2021 32063-Lhjdlwgn Plate Each Additional 02624-Iplvestt Plate Each Additional 82541-Jxsgfoku Plate Each Additional 40875-Cbauurfh Plate Each Additional 10/2022 67952-MUEY SKIN LESIONS, OVER 4 02/24/20 31643-FQJV SKIN LESIONS, OVER 4 06/08/20 42326-NGWP SKIN LESIONS, OVER 4 04/10/20 19972-QMOG SKIN LESIONS, OVER 4 07/14/20 26594-ATNW SKIN LESIONS, OVER 4 11/03/19 62439-WGVG SKIN LESIONS, OVER 4 03/07/20 16452-KAVI SKIN LESIONS, OVER 4 12/07/19 98199-PYVR SKIN LESIONS, OVER 4 08/31/20 02866-XDQV SKIN LESIONS, OVER 4 06/30/20 53624-DUSU SKIN LESIONS, OVER 4 10/06/20 03948-QTVE SKIN LESIONS, OVER 4 09/16/20 17658-CPJM SKIN LESIONS, OVER 4 06/10/20 76949-BPVM SKIN LESIONS, OVER 4 02/20/20 20477-VIQS SKIN LESIONS, OVER 4 01/07/20 72679-SIGX SKIN LESIONS, OVER 4 03/04/20 06260-ORHU SKIN LESIONS, OVER 4 12/03/19 07007-NPXY SKIN LESIONS, OVER 4 08/11/20 93341-OUPF SKIN LESIONS, OVER 4 05/09/20 61459-AHQI SKIN LESIONS, OVER 4 02/04/20 99325-TJVF SKIN LESIONS, OVER 4 11/22/19 03892-TLWG SKIN LESIONS, OVER 4 08/23/20 20 26350-GSRT SKIN LESIONS, OVER 4 05/21/20 20 84624-HVLV SKIN LESIONS, OVER 4 11/17/19 20 36776-AWOY SKIN LESIONS, OVER 4 10/10/20 39512-CQDI SKIN LESIONS, OVER 4 08/10/20 27905-LYRE SKIN LESIONS, OVER 4 01/30/20 13119-EQHK SKIN LESIONS, OVER 4 05/11/20 17 76801-SCAT SKIN LESIONS, OVER 4 08/19/20 18 96942-DRFL SKIN LESIONS, OVER 4 05/20/20 18 50807-OGSN SKIN LESIONS, OVER 4 02/19/20 18 37279-YIIQ SKIN LESIONS, OVER 4 11/19/19 18 81397-DQHU SKIN LESIONS, OVER 4 10/30/19 17 99964-FUYL SKIN LESIONS, OVER 4 07/16/20 16 99102-LIYD SKIN LESIONS, OVER 4 04/09/20 16 53729-GXET SKIN LESIONS, OVER 4 01/09/20 16 35944-Qfqf. Subungual Hematoma 0 HEMOGLOBIN A1C (GLYCOHEMOGLOBIN) 020 Next Appt Details Provider Name:Darline Graff , 01/12/2025 02:15:00 PM, [address] [place], [address], Insurance Providers Payer Name Payer Address Payer Phone Subscriber Number Group Number Insured Name Patient Relationship to Insured Coverage Start Date Coverage End Date [employer] [address] [place] [address] [id number] Abraham Vera Self - patient is the insured [facility] [address] [place] [address] [id number] Abraham Vera Self - patient is the insured Medical (General) History Medical History History ICD Code diabetes high blood pressure measles mumps chicken pox Bleeding ulcer Cataracts Surgical History Surgery Date(Month/Year) rotator cuff surgery 2000 Heart Catheterization 09/2020 carpal tunnel 01/2023 Hospitalization History Reason Date(Month/Year) [facility]- Cardioversion- afib 11/22/20
--- OUTSIDE RECORDS SUMMARY | 2024-12-05 11:27 | XMS_ITS ---
Author Organization [facility] Address [address] [place] [address] Care Team Providers Care Carrot Harvester Name Role Phone Louis Elizabeth MD Primary Care Provider Unavaila ble Black, Darline Unavailable [phone] Allergies No Known Allergies REASON FOR VISIT At Risk Footcare, Ingrown nail(s) Medications Medication SIG (Take, Route, Frequency, Duration) Notes Start Date End Date Status PriLOSEC Not-Taking Zestril Not-Taking Microzide Not-Taking Aspirin Not-Taking Vitamin E Not-Taking Hydrocortisone 2.5 % as directed Externally to feet Twice a day for 30 days Not-Taking amLODIPine Besylate 5 MG Orally Not-Taking Metoprolol & Diet Manage Prod Not-Taking zzzCompression Stockings 20-30mm Hg . . . for . Active Warfarin Sodium Not- Taking Lisinopril 40 MG Orally Act cliff Metoprolol Tartrate Active Omeprazole Active Simvastatin Active Vitamin D (Cholecalciferol) Active HumaLOG Active Fish Oil Active hydroCHLOROthiazide Active Bag [place] Active Amiodarone HCl 200 MG Orally Active Social History Tobacco Use: Social History Observation [...] Are you an other tobacco user? No Vital Signs Height 5ft 10.5in in 03/07/2024 Weight 220 lbs 03/07/2024 BMI 31.12 kg/m2 03/07/2024 Blood pressure systolic 120 mm Hg 03/07/20 24 Blood pressure diastolic 70 mm Hg 024 Procedures Procedure Date Ordered Date Performed Result Body Sit e 59636-MOFHJXO NAIL, 6 OR MORE 03/07/2024 N/A 59185-Cmtcbccw Plate 03/07/2024 N/A 26868-Dmfatkxj Plate Each Additional 03/07/2024 N/A 29497-FNPN SKIN LESIONS, OVER 4 03/07/2024 N/A Encounters Encounter Location Date Provider Diagnosis [facility] [address] [place] [address] 03/07/2024 Darline Graff Type 1 diabetes mellitus with diabetic polyneuropathy E10.42 ; Tinea unguium B35.1 and Ingrown nail L60.0 Assessments Encounter Date Diagnosis (ICD Code) Assessment Notes Treatment Notes Treatment Clinical Notes Section Notes 03/07/2024 Type 1 diabetes mellitus with diabetic polyneuropathy (ICD-10 - E10.42) 03/07/2024 Tinea unguium (ICD-10 - B35.1) 03/07/2024 Ingrown nail (ICD-10 - L60.0) Plan Of Treatment Pending Test Test Name Order Date 75354-YICLZZY NAIL, 6 OR MORE 03/07/2024 04406-Lputunsy Plate 03/07/2024 31689-Qzraprvr Plate Each Additional 26047-MDXW SKIN LESIONS, OVER 4 03/07/20 24 Next Appt Details Follow Up: 2 Weeks, Reason: Provider Name:Darline Graff , 01/12/2025 02:15:00 PM, [address] [place] [address], [phone], Procedure Notes * Category Sub-Category Detail Notes Nail Avulsion Procedure A fine sterile e levator was placed between the eponychium, nail fold, and nail plate to separate the the structures. A sterile nail splitter, and/or sterile 316 blade, was then used to longitudinally section the nail along its entire length through the eponychium to the area under the nail fold. The offending portion of each nail was from the nail bed with a rolling action and then removed with a hemostat. No underlying bone was identified. There was minimal bleeding as hemostasis was achieved through use of either a digital tournaquet or the aforementioned local with epinephrine. A bacitracin sterile dressing was applied. Local wound aftercare instructions were discussed and dispensed. The patient was informed of both conservative and future surgical procedures to prevent recurrence (67395/32) Anesthesia was deferred - NEURO ALPHONSO: patient has medically documented neuropathic condition affecting sensation Location Lateral nail border , TA , Bilateral nail border , T5 Debride Nail 6-10 Nail debridement Nail debridem ent performed extensively to reduce/remove overall nail length and girth, subungual debris, and necrotic tissue, by manual and electrical means with use of a nail nipper and/or dremel, to more viable healthy nail plate or bed tissue 6-10. Silver nitrate used for any petechial bleeding as necessary. Patient chooses, no pharmaceutical tx (07672) Keratoma Treatment Parring or Cutting o f Benign Hyperkeratotic Lesion(s) 19235 ( >4 Lesions) - The Benign hyperkeratotic lesions, as described above were pared, and/or cut utilizing a sterile #15 blade, tissue nippers, and/or dremel Progress Notes * Abraham VERADOB: [birth year] (73 yo M)Acc No.[id number]:03/07/2024 Progress Note Patient:?[place] Provider:?Darline Graff DPM :1950???Age:73 Y???Sex:Male Beau e:03/07/2024 Address:[address] [place] [address] [id number] Pcp:Louis Elizabeth MD Subjective: * Chief Complaints: * ???At Risk FootcareIngrown n ail(s) * HPI: ???At Risk footcare:?Pt States Last PCP Visit:?Date?01/15/2024 * Medical History:? * Surgical History:?rotator cu ff surgery 2000Heart Catheterization 09/2020carpal tunnel 01/2023 * Hospitalization/Major Diagno stic Procedure:?[facility]- Cardioversion- afib 11/22/20 * Family History:?Mother: dece ased, diagnosed with Other malignant neoplasm of unspecified site.?Father: , diagnosed with Family history of arthritis, Other malignant neoplasm of unspecified site. Maternal Grand Father: diagnosed with Diabetic - NIDDM, Unspecified cerebral artery occlusion with cerebral infarction.? * Social History:?Tobacco Use:?Tobacco Use/Smoking?Are you a:?nonsmoker ?Additional Findings: Tobacco Non-User?Current non-smoker ?Tobacco use other than smoking?Are you an other tobacco user??No ???Drugs/Alcohol:?Drugs?Have you used drugs other than those for medical reasons in the past 12 months??No ?Alcohol Screen?Did you have a drink containing alcohol in the past year??No ?Points?0 ?Interpretation?Negative ???Miscellaneous:?no Caffeine. ?Children: yes. ?Exercise: yes, cut firewood. ?Marital status: . ?Occupation: Retired. * Medications:?TakingAmiodaron e HCl 200 MG Tablet Orally Bag [place] Fish Oil hydroCHLOROthiazide HumaLOG Lisinopril 40 MG Tablet Orally Metoprolol Tartrate Omeprazole Simvastatin Vitamin D (Cholecalciferol) zzzCompression Stockings 20- 30mm Hg 1 pair closed toe- knee high . . .Taking Amiodarone HCl 200 MG Tablet Orally Taking Bag [place] Taking Fish Oil Taking hydroCHLOROthiazide Taking HumaLOG Taking Lisinopril 40 MG Tablet Orally Taking Metoprolol Tartrate Taking Omeprazole Taking Simvastatin Taking Vitamin D (Cholecalciferol) Taking zzzCompression Stockings 20-30mm Hg 1 pair closed toe- knee high . . .Not-Taking/PRNWarfarin Sodium Hydrocortisone 2.5 % Cream as directed Externally to feet Twice a dayamLODIPine Besylate 5 MG Tablet Orally Metoprolol & Diet Manage Prod Vitamin E PriLOSEC Zestril Microzide Aspirin Medication List reviewed and reconciled with the patientNot-Taking/PRN Warfarin Sodium Not-Taking/PRN Hydrocortisone 2.5 % Cream as directed Externally to feet Twice a dayNot-Taking/PRN amLODIPine Besylate 5 MG Tablet Orally Not-Taking/PRN Metoprolol & Diet Manage Prod Not-Taking/PRN Vitamin E Not-Taking/PRN PriLOSEC Not-Taking/PRN Zestril Not-Taking/PRN Microzide Not-Taking/PRN Aspirin Medication List reviewed and reconciled with the patient * Allergies:?N.K.D.A.yes[Aller gies Verified] Objective: * Vitals:?Ht: 5ft 10.5in, Wt:2 20, BMI:31.12, Shoe size: 12EEE, BP:120/70 mm Hg, BS: 152, Ht-cm: 179.07 cm, Wt-k.79 kg. * ???Past Orders: ???Lab:HEMOGLOBIN A1C (GLYCO HEMOGLOBIN) (Order Date - 12/25/2023) (Collection Date - 12/25/2023) ? Value Reference Range ?HEMOGLOBIN A1C % (HH) 5.9 * Examination: ???Ophthalmology Referral: ?DIABETES EYE EXAM?Dermatologic: ?SKIN FINDINGS:?Skin exam reveals Keratotic lesion(s) located at, SUB MTH (s), 1, B/L, Heel(s), B/L, SUB MTH (s)?5 B/L .?Ingrown Nail: ?INSPECTION:?Reveals nail incurvation, pain on palpation, groove hypertrophy , groove ischemia , Lateral nail border , TA , Bilateral nail borders , T5.?Neurological: ?SENSORY:?Neurological exam demonstrates, reduced light touch sensation, reduced vibration sensation, 5.07 monofilament test performed at plantar aspects of 5 varied sites per foot shows sensation, reduced , B/L, at Forefoot, at Midfoot, , Pt relates,cont.?anesthesia.?Vascular: ?DP PULSES:?2/4, B/L.?PT PULSES:?2/4, B/L.?Nails: ?NAILS are:?elongated,overgrown,dystrophic,greater than 3mm thick,discolored and friable with crumbly malodorous subungual debris, with dull to no pain on palpation due to neuropathy, , 2-5 B/L.? Assessment: * Assessment: 1.?Type 1 diabetes mellitus with diabetic polyneuropathy - E10.42 (Primary)?2.?Tinea unguium - B35.1?3.?Ingrown nail - L60.0? Plan: * Treatment: 2.?Tinea unguium?Procedure: 35362-BRXGFHL NAIL, 6 OR MORE 3.?Ingrown nail?Procedure: 38051-Wzhrqqui Plate ?Procedure: 13713-Kjztsbla Plate Each Additional * Procedures:?Debride Nail 6-10:?Nail debridement?Nail debridement performed extensively to reduce/remove overall nail length and girth, subungual debris, and necrotic tissue, by manual and electrical means with use of a nail nipper and/or dremel, to more viable healthy nail plate or bed tissue 6-10. Silver nitrate used for any petechial bleeding as necessary. Patient chooses, no pharmaceutical tx (20121).?Keratoma Treatment:?Parring or Cutting of Benign Hyperkeratotic Lesion(s)?46005 ( >4 Lesions) - The Benign hyperkeratotic lesions, as described above were pared, and/or cut utilizing a sterile #15 blade, tissue nippers, and/or dremel.?Nail Avulsion:?Location?Lateral nail border , TA , Bilateral nail border , T5.?Anesthesia?was deferred - NEUROPATHY: patient has medically documented neuropathic condition affecting sensation.?Procedure?A fine sterile elevator was placed between the eponychium, nail fold, and nail plate to separate the the structures. A sterile nail splitter, and/or sterile 316 blade, was then used to longitudinally section the nail along its entire length through the eponychium to the area under the nail fold. The offending portion of each nail was from the nail bed with a rolling action and then removed with a hemostat. No underlying bone was identified. There was minimal bleeding as hemostasis was achieved through use of either a digital tournaquet or the aforementioned local with epinephrine. A bacitracin sterile dressing was applied. Local wound aftercare instructions were discussed and dispensed. The patient was informed of both conservative and future surgical procedures to prevent recurrence (59117/32).? * Procedure Codes:?74473 DEBRI DE NAIL, 6 OR MORE, Modifiers: XS 57732 Avulsion Plate, [place] [address] Avulsion Plate Each Additional, Modifiers: T5 17592 TRIM SKIN LESIONS, OVER 4, Modifiers: XS * Follow Up:?2 Weeks * Images: * Sign off status: Completed true * Provider:?Darline Graff DPM Date:?2023 Generated for J Carlos palacio/Cornell/Jose on:?12/05/2024 11:27 AM EST History and Physical Notes * HPI (History of Present Illness) Category Sub-Category Detail Notes Category Not es At Risk footcare Pt States Last PCP Visit: Date: 4 Examination Category Sub-Category Detail Notes Category Not es Ingrown Nail INSPECTION: Reveals nail inc urvation, pain on palpation, groove hypertrophy , groove ischemia , Lateral nail border , TA , Bilateral nail borders , T5 Neurological SENSORY: Neurological exa m demonstrates, reduced light touch sensation, reduced vibration sensation, 5.07 monofilament test performed at plantar aspects of 5 varied sites per foot shows sensation, reduced , B/L, at Forefoot, at Midfoot, , Pt relates,cont. anesthesia Dermatologic SKIN FINDINGS: Skin exam reveal s Keratotic lesion(s) located at, SUB MTH (s), 1, B/L, Heel(s), B/L, SUB MTH (s) 5 B/L VERRUCA: Ophthalmology Referral DIABETES EYE EXAM Diabetic Retinopa thy Screening:: Yes Findings of Diabetic Eye Exam:: no retin opathy Vascular DP PULSES (B): 2/4, B/L PT PULSES (B): 2/, B/L Nails NAILS are: elongated,overgr own,dystrophic,greater than 3mm thick,discolored and friable with crumbly malodorous subungual debris, with dull to no pain on palpation due to neuropathy, , 2-5 B/L
--- OUTSIDE RECORDS SUMMARY | 2024-12-05 11:27 | XMS_ITS ---
Author Organization [facility] Address [address] [facility] [place] [address] Care Team Providers Care Director Of Dietary Name Role Phone Louis Elizabeth MD Primary Care Provider Unavaila carmela Black, Darline Unavailable [phone] Allergies No Known Allergies REASON FOR VISIT At Risk Footcare Medications Medication SIG (Take, Route, Frequency, Duration) Notes Start Date End Date Status Vitamin E Active PriLOSEC Active Zestril Active Microzide Not-Taking Aspirin Not-Taking Amiodarone HCl 200 MG Orally Active Warfarin Sodium Not- Taking Hydrocortisone 2.5 % as directed Externally to feet Twice a day for 30 days Active amLODIPine Besylate 5 MG Orally Active Metoprolol & Diet Manage Prod Active Metoprolol Tartrate Active Omeprazole Active Simvastatin Active Vitamin D (Cholecalciferol) Active zzzCompression Stockings 20-30mm Hg . . . for . Active Bag [place] Active Fish Oil Active hydroCHLOROthiazide Active HumaLOG Not-Taking Lisinopril 40 MG Orally Act cliff Social History Tobacco Use: Social History Observation Description Date Details (start date - stop date) Never Smoker NA - NA Tobacco Use/Smoking Question Answer Notes Are you a: nonsmoker Additional Findings: Tobacco Non-User Current no n-smoker Tobacco use other than smoking: Question Answer Notes Are you an other tobacco user? No Problems Problem Type SNOMED Code ICD Code Onset Dates Problem Status W/U Status Risk Notes Problem 26243011 Essential hypertension (I10) Active confirmed Vital Signs Height 5ft10.5in in 10/06/2024 Weight 222 lbs 10/06/2024 BMI 31.4 kg/m2 10/06/2024 Blood pressure systolic 120 mm Hg 10/06/20 24 Blood pressure diastolic 80 mm Hg 024 Procedures Procedure Date Ordered Date Performed Result Body Sit e 20313-JWCSGDH NAIL, 6 OR MORE 10/06/2024 N/A 94106-WBDX SKIN LESIONS, OVER 4 10/06/2024 N/A Encounters Encounter Location Date Provider Diagnosis [facility] [address] [address] 10/06/2024 Darline Graff Type 1 diabetes mellitus with diabetic polyneuropathy E10.42 and Tinea unguium B35.1 Assessments Encounter Date Diagnosis (ICD Code) Assessment Notes Treatment Notes Treatment Clinical Notes Section Notes 10/06/2024 Type 1 diabetes mellitus with diabetic polyneuropathy (ICD-10 - E10.42) 10/06/2024 Tinea unguium (ICD-10 - B35.1) Plan Of Treatment Pending Test Test Name Order Date [id number] NAIL, 6 OR MORE 10/06/2024 10627-IZFD SKIN LESIONS, OVER 4 10/06/20 24 Next Appt Details Follow Up: 3 Months, Reason: Provider Name:Darline Graff , 01/12/2025 02:15:00 PM, [address] [place] [address], [place], [address], Procedure Notes * Category Sub-Category Detail Notes Debride Nail 6-10 Nail debridement Due to the cl inical pathology outlined in the exam findings, performance of this nail treatment is medically necessary as its management by an unskilled/untrained nonprofessional would put this patients foot and overall health at risk. Therefore, debridement to affected nail(s), as described in exam ( 1-5 b/l ), was performed exclusively by the physician of record to reduce/remove overall nail length, girth, thickness, subungual debris, and necrotic tissue, by manual and/or electrical means through the use of a nail nipper and/or dremel-type centerless grinder tender, to a more viable healthy nail plate or bed tissue 6-10 nails in total. Silver nitrate was used for any petechial bleeding as necessary. Definitive antifungal treatment options, both pharmaceutical and surgical, have been reviewed and discussed with the patient. The patient solely prefers the use of intermittent/as needed professional debridement services for their nail condition and understands the need for additional periodic treatments to maintain effectiveness in symptomatic relief - 48760 Keratoma Treatment Parring or Cutting o f Benign Hyperkeratotic Lesion(s) (-57) More than 4 Lesions - Due to the at risk nature of the patients medical condition as documented in the exam findings, performance of this keratoderma treatment is medically necessary as its management by an unskilled/untrained nonprofessional would put this patients foot and overall health at risk. Therefore, the benign hyperkeratotic lesions, ( 6 ) in total, locations as stated and described in the exam ( SUB MTH (s), 1, B/L,Plantar Heel(s), B/L, SUB MTH (s) 5 B/L ), were pared, and/or cut utilizing a sterile 15 blade, tissue nippers, and/or power dremel instrumentation by the physician of record - 21486 Progress Notes * Abraham VERADOB: [birth year] (74 yo M)Acc No.[id number]:10/06/2024 Progress Note Patient:?Abraham VERA Provider:?Darline Graff DPM :1950???Age:74 Y???Sex:Male Beau e:10/06/2024 Address:[address] [place] [address], [id number] Pcp:Louis Elizabeth MD Subjective: * Chief Complaints: * ???At Risk Footcare * HPI: ???At Risk footcare:?Pt States Last PCP Visit:?Date?09/20/2024 * ROS:?General/Constitutional:?Nausea?denies.?Vomiting?denies.?Hunger Thirst?denies.?Loss appetite?denies.?Chills?denies.?Fatigue?denies.?Fever?denies.?Night Sweats?denies.?Unexplained weight loss?denies.?Unexplained weight gain?denies.?HEENTM:?Dentures?denies.?Dizziness?denies.?Glasses/contacts?denies.?Retinopathy?den ies.?Blurred/double vision?denies.?TMJ?denies.?Discharge/drainage?denies.?Implants?denies.?Sore throat?denies.?Dental implants?denies.?Hard of hearing ?denies.?Difficulty chewing/swallowing/speaking?denies.?Nose bleeds?denies.?Sore mouth?denies.?Respiratory:?On O xygen?denies.?Pneumonia/pleurisy?denies.?Bronchitis?denies.?Emphysema?denies.?Co ughing?denies.?Cough blood?denies.?Shortness of breath?denies.?Wheezing?denies.?Cardiovascular:?Pacemaker?denies.?MVP?denies.?WPW?denies.?CHF?denies.?Heart attack?denies.?Septal defect?denies.?Rapid beat?denies.?Chest pain ?denies.?Atrial Fib.?denies.?Murmur/Palpitations?denies.?Gastrointestinal:?Hemorrhoids?denies.?Stomach/Abdominal pain?denies.?Dark blood stool?denies.?Irritable bowel ?denies.?Constipation?denies.?Diarrhea?denies.?Hematology:?Swelling?denies.?Clots?denies.?Varicose Veins?denies.?Bruising?denies.?Bleeding problem?denies.?Genitourinary:?Blood urine?denies.?Frequent/Painfu/urination/bladder control?denies.?Kidney stones?denies.?Infection (UTI)?denies.?Nephropathy?denies.?sex trans dis (STD)?denies.?Prostate?denies.?Musculoskeletal:?Hammertoes?admits.?Bunions?denies.?Back Pain?denies.?Muscle Cramps/ Resting?denies.?Muscle cramps / walking?denies.?Generalized aches and pains?denies.?Weakness?denies.?Integ.:?Grimm?denies.?Scars?denies.?Corns/calluses?admits.?Ingrown nails?admits.?Painful nails?denies.?Open Sores?denies.?Rashes?denies.?Neurologic:?Difficulty sleeping?denies.?Brain disorder?denies.?Numbness?denies.?Balance t rouble?denies.?Confusion?denies.?Fainting/blackouts?denies.?Tingling?denies.?Collin mors?denies.? * Medical History:? * Surgical History:?rotator cu ff surgery 2000Heart Catheterization 09/2020carpal tunnel 01/2023 * Hospitalization/Major Diagno stic Procedure:?[facility]- Cardioversion- afib 11/22/20 * Family History:?Mother: dece ased, diagnosed with Other malignant neoplasm of unspecified site.?Father: , diagnosed with Other malignant neoplasm of unspecified site, Family history of arthritis. Maternal Grand Father: diagnosed with Diabetic - NIDDM, Unspecified cerebral artery occlusion with cerebral infarction.? * Social History:?Tobacco Use:?Tobacco Use/Smoking?Are you a:?nonsmoker ?Additional Findings: Tobacco Non-User?Current non-smoker ?Tobacco use other than smoking?Are you an other tobacco user??No * Medications:?TakingBag [place] Fish Oil hydroCHLOROthiazide Lisinopril 40 MG Tablet Orally Metoprolol Tartrate Omeprazole Simvastatin Vitamin D (Cholecalciferol) zzzCompression Stockings 20-30mm Hg 1 pair closed toe- knee high . . . Amiodarone HCl 200 MG Tablet Orally Hydrocortisone 2.5 % Cream as directed Externally to feet Twice a day amLODIPine Besylate 5 MG Tablet Orally Metoprolol & Diet Manage Prod Vitamin E PriLOSEC Zestril Taking Bag [place] Taking Fish Oil Taking hydroCHLOROthiazide Taking Lisinopril 40 MG Tablet Orally Taking Metoprolol Tartrate Taking Omeprazole Taking Simvastatin Taking Vitamin D (Cholecalciferol) Taking zzzCompression Stockings 20-30mm Hg 1 pair closed toe- knee high . . . Taking Amiodarone HCl 200 MG Tablet Orally Taking Hydrocortisone 2.5 % Cream as directed Externally to feet Twice a day Taking amLODIPine Besylate 5 MG Tablet Orally Taking Metoprolol & Diet Manage Prod Taking Vitamin E Taking PriLOSEC Taking Zestril Not-Taking/PRNHumaLOG Warfarin Sodium Microzide Aspirin Medication List reviewed and reconciled with the patientNot-Taking/PRN HumaLOG Not-Taking/PRN Warfarin Sodium Not-Taking/PRN Microzide Not-Taking/PRN Aspirin Medication List reviewed and reconciled with the patient * Allergies:?N.K.D.A.yes[Aller gies Verified] Objective: * Vitals:?Ht: 5ft10.5in, Wt: 2 22, BMI: 31.4, Shoe size: 12EEE, BP: 120/80 mm Hg, BS: 149, Ht-cm: 179.07 cm, Wt-k.7 kg. * ???Past Orders: Lab:HEMOGLOBIN A1C (GLYCOHEM OGLOBIN) * Collection Date 09/13/2024 09/13/2024 Collection Time 01:17 PM 07:38 AM Order Date 09/13/2024 09/13/2024 HEMOGLOBIN A1C % (HH) NR 5.9 TOTAL HEMOGLOBIN (HGBA1C) 5.9 NR * Examination: ???Ophthalmology Referral: ?DIABETES EYE EXAM?Dermatologic: ?SKIN FINDINGS:?Skin exam reveals Keratotic lesion(s) located at, SUB MTH (s), 1, B/L,Plantar Heel(s), B/L, SUB MTH (s) 5 B/L .?Neurological: ?SENSORY:?Neurological exam demonstrates, reduced light touch sensation, reduced vibration sensation, 5.07 monofilament test performed at plantar aspects of 5 varied sites per foot shows sensation, reduced , B/L, at Forefoot, at Midfoot, , Pt relates,cont.?anesthesia.?Vascular: ?DP PULSES (B):?2/4, B/L.?PT PULSES (B):?2/4, B/L.?Nails: ?NAILS are:?elongated,overgrown,dystrophic,greater than 3mm thick,discolored and friable with crumbly malodorous subungual debris, with dull to no pain on palpation due to neuropathy, , , 1,23-5 Right foot , 1,2,3,5 Left foot.?General Examination: ?GENERAL APPEARANCE:?Reveals a pleasant, alert, well nourished, well- developed, well hydrated individual, who demonstrates proper attention to hygiene/body habitus, and is in no acute distress, Pt serves as own historian for office visit today.?FOOT EXAM:?Footwear Evaluation?Orthopedic: ?FOOTWEAR:?Non-Diabetic with no OT.? Assessment: * Assessment: 1.?Tinea unguium - B35.1???2 .?Type 1 diabetes mellitus with diabetic polyneuropathy - E10.42 (Primary)??? Plan: * Treatment: 2.?Tinea unguium?Procedure: [id number] NAIL, 6 OR MORE * Procedures:?Debride Nail 6-10:?Nail debridement?Due to the clinical pathology outlined in the exam findings, performance of this nail treatment is medically necessary as its management by an unskilled/untrained nonprofessional would put this patients foot and overall health at risk. Therefore, debridement to affected nail(s), as described in exam ( 1-5 b/l?), was performed exclusively by the physician of record to reduce/remove overall nail length, girth, thickness, subungual debris, and necrotic tissue, by manual and/or electrical means through the use of a nail nipper and/or dremel-type centerless grinder tender, to a more viable healthy nail plate or bed tissue 6-10 nails in total. Silver nitrate was used for any petechial bleeding as necessary. Definitive antifungal treatment options, both pharmaceutical and surgical, have been reviewed and discussed with the patient. The patient solely prefers the use of intermittent/as needed professional debridement services for their nail condition and understands the need for additional periodic treatments to maintain effectiveness in symptomatic relief - 29059.?Keratoma Treatment:?Parring or Cutting of Benign Hyperkeratotic Lesion(s)?(-57) More than 4 Lesions - Due to the at risk nature of the patients medical condition as documented in the exam findings, performance of this keratoderma treatment is medically necessary as its management by an unskilled/untrained nonprofessional would put this patients foot and overall health at risk. Therefore, the benign hyperkeratotic lesions, ( 6 ) in total, locations as stated and described in the exam ( SUB MTH (s), 1, B/L,Plantar Heel(s), B/L, SUB MTH (s) 5 B/L ), were pared, and/or cut utilizing a sterile 15 blade, tissue nippers, and/or power dremel instrumentation by the physician of record - 19267.? * Procedure Codes:?45477 DEBRI DE NAIL, 6 OR MORE, Modifiers: XS 70838 TRIM SKIN LESIONS, OVER 4, Modifiers: XS * Preventive Medicine:? ??Counseling:?Shoe Gear Counseling:?The patient deferred recommended diabetic shoes with heat moled inserts.? ??Screening/Special Tests:?FALLS: Screening for Future Fall Risk?Have you had two or more falls in the past year??No ?Have you had any falls with injury in the past year??No * Follow Up:?3 Months * Images: * Sign off status: Completed true * Provider:?Darline Graff DPM Date:?2023 Generated for J Carlos palacio/Cornell/Jose on:?12/05/2024 11:27 AM EST History and Physical Notes * HPI (History of Present Illness) Category Sub-Category Detail Notes Category Not es At Risk footcare Pt States Last PCP Visit: Date: 4 Examination Category Sub-Category Detail Notes Category Not es Neurological SENSORY: Neurological exa m demonstrates, reduced light touch sensation, reduced vibration sensation, 5.07 monofilament test performed at plantar aspects of 5 varied sites per foot shows sensation, reduced , B/L, at Forefoot, at Midfoot, , Pt relates,cont. anesthesia Dermatologic SKIN FINDINGS: Skin exam reveal s Keratotic lesion(s) located at, SUB MTH (s), 1, B/L,Plantar Heel(s), B/L, SUB MTH (s) 5 B/L VERRUCA: Orthopedic FOOTWEAR: Non-Diabetic with no OT General Examination GENERAL APPEARANCE: Reveals a pleasant, alert, well nourished, well-developed, well hydrated individual, who demonstrates proper attention to hygiene/body habitus, and is in no acute distress, Pt serves as own historian for office visit today FOOT EXAM: Lower Extremity Neurological Exa m performed:: Yes Visual exam of foot performed:: Yes Date: 10/06/2024 Sensory testing performed:: sensations d iminished Sensory and motor testing performed:: st rength diminished Pedal pulse taking performed:: 2+ Footwear Evaluation Footwear Evaluation performe d:: Yes Ophthalmology Referral DIABETES EYE EXAM Procedure Perform ed:: Yes ?Date of Exam Performed: 11/26/2023 Diabetic Retinopathy Screening:: No Findings of Diabetic Eye Exam:: no retin opathy Vascular DP PULSES (B): 2/4, B/L PT PULSES (B): 2/4, B/L Nails NAILS are: elongated,overgr own,dystrophic,greater than 3mm thick,discolored and friable with crumbly malodorous subungual debris, with dull to no pain on palpation due to neuropathy, , , 1,23-5 Right foot , 1,2,3,5 Left foot
--- OUTSIDE RECORDS SUMMARY | 2024-12-05 11:27 | XMS_ITS ---
Author Organization [facility] Address [address] [facility] [place] [address] Care Team Providers Care Php Programmer Name Role Phone Louis Elizabeth MD Primary Care Provider Unavaila ble Black, Darline Unavailable [phone] Allergies No Known Allergies REASON FOR VISIT At Risk Footcare, Ingrown Nail Medications Medication SIG (Take, Route, Frequency, Duration) Notes Start Date End Date Status Zestril Not-Taking Microzide Not-Taking Vitamin E Not-Taking PriLOSEC Not-Taking Aspirin Not-Taking zzzCompression Stockings 20-30mm Hg . . . for . Active Warfarin Sodium Not- Taking Metoprolol & Diet Manage Prod Not-Taking Hydrocortisone 2.5 % as directed Externally to feet Twice a day for 30 days Not-Taking amLODIPine Besylate 5 MG Orally Not-Taking Metoprolol Tartrate Active Omeprazole Active Lisinopril 40 MG Orally Act cliff Simvastatin Active Vitamin D (Cholecalciferol) Active Fish Oil Active hydroCHLOROthiazide Active Amiodarone HCl 200 MG Orally Not-Taking Bag [place] Active HumaLOG Active Social History Tobacco Use: Social History Observation Description Date Details (start date - stop date) Never Smoker NA - NA Tobacco Use/Smoking Question Answer Notes Are you a: nonsmoker Additional Findings: Tobacco Non-User Current no n-smoker Tobacco use other than smoking: Question Answer Notes Are you an other tobacco user? No Vital Signs Height 5ft10.5in in 06/30/2024 Weight 220 lbs 06/30/2024 BMI 31.12 kg/m2 06/30/2024 Blood pressure systolic 120 mm Hg 06/30/20 24 Blood pressure diastolic 80 mm Hg 024 Procedures Procedure Date Ordered Date Performed Result Body Sit e 15484-JQXYPKY NAIL, 6 OR MORE 06/30/2024 N/A 11385-Nfpllezh Plate 06/30/2024 N/A 93514-IFZV SKIN LESIONS, OVER 4 06/30/2024 N/A Encounters Encounter Location Date Provider Diagnosis [facility] [place] [address] [place] [address] 06/30/2024 Darline Graff Type 1 diabetes mellitus with diabetic polyneuropathy E10.42 ; Tinea unguium B35.1 and Ingrown nail L60.0 Assessments Encounter Date Diagnosis (ICD Code) Assessment Notes Treatment Notes Treatment Clinical Notes Section Notes 06/30/2024 Type 1 diabetes mellitus with diabetic polyneuropathy (ICD-10 - E10.42) 06/30/2024 Tinea unguium (ICD-10 - B35.1) 06/30/2024 Ingrown nail (ICD-10 - L60.0) Plan Of Treatment Pending Test Test Name Order Date 89407-PJBWBMX NAIL, 6 OR MORE 06/30/2024 29822-Tkfbaaow Plate 06/30/2024 22514-TOXZ SKIN LESIONS, OVER 4 06/30/20 24 Next Appt Details Follow Up: 2 Weeks, Reason: Provider Name:Darline Graff , 01/12/2025 02:15:00 PM, [address] [place] [address], [phone], Procedure Notes * Category Sub-Category Detail Notes Nail Avulsion Procedure A fine sterile e levator was placed between the eponychium, nail fold, and nail plate to separate the structures. A sterile nail splitter, and/or sterile 316 blade, was then used to longitudinally section the nail along its entire length through the eponychium to the area under the nail fold. The offending portion of nail was from the nail bed with a rolling action and then removed with a hemostat. No underlying bone was identified. There was minimal bleeding as hemostasis was achieved through the temporary use of either a digital tourniquet or the aforementioned local with epinephrine. A bacitracin sterile dressing was applied. Local wound aftercare instructions were discussed and dispensed. The patient was informed of both conservative and future surgical procedures to prevent recurrence. Tylenol or Motrin was recommended for pain or discomfort (73094) , DIABETES: Matricectomy deferred at this time due to diabetes risk Anesthesia was deferred - NEURO ALPHONSO: patient has medically documented neuropathic condition affecting sensation Location Bilateral nail borde r , T6 Debride Nail 6-10 Nail debridement Performance o f this nail treatment by a nonprofessional would put this patients foot and overall health at risk. Therefore, nail debridement was performed extensively to reduce/remove overall nail length, girth, thickness, subungual debris, and necrotic tissue, by manual and/or electrical means through the use of a nail nipper and/or dremel-type grinder set up operator universal, to a more viable healthy nail plate or bed tissue 6-10. Silver nitrate used for any petechial bleeding as necessary. Definitive antifungal treatment options have been reviewed and discussed with the patient. The patient chooses, no pharmaceutical tx - 94327 Keratoma Treatment Parring or Cutting o f Benign Hyperkeratotic Lesion(s) 44902 ( >4 Lesions) - The Benign hyperkeratotic lesions, as described above were pared, and/or cut utilizing a sterile #15 blade, tissue nippers, and/or dremel Progress Notes * Abraham VERADOB: [birth year] (73 yo M)Acc No.[id number]:06/30/2024 Progress Note Patient:?[place] Abraham Davidson Provider:?Darline Graff DPM :1950???Age:73 Y???Sex:Male Beau e:06/30/2024 Address:[address] [place] [address], [place], [facility] Pcp:Louis Elizabeth MD Subjective: * Chief Complaints: * ???At Risk FootcareIngrown N ail * HPI: ???At Risk footcare:?Pt States Last PCP Visit:?Date?05/30/2024 * Medical History:? * Surgical History:?rotator cu [...] than smoking?Are you an other tobacco user??No ???Miscellaneous:?no Caffeine. ?Children: yes. ?Exercise: yes, cut firewood. ?Marital status: . ?Occupation: Retired. * Medications:?TakingBag [place] Fish Oil hydroCHLOROthiazide HumaLOG Lisinopril 40 MG Tablet Orally Metoprolol Tartrate Omeprazole Simvastatin Vitamin D (Cholecalciferol) zzzCompression Stockings 20-30mm Hg 1 pair closed toe- knee high . . .Taking Bag [place] Taking Fish Oil Taking hydroCHLOROthiazide Taking HumaLOG Taking Lisinopril 40 MG Tablet Orally Taking Metoprolol Tartrate Taking Omeprazole Taking Simvastatin Taking Vitamin D (Cholecalciferol) Taking zzzCompression Stockings 20-30mm Hg 1 pair closed toe- knee high . . .Not-Taking/PRNAmiodarone HCl 200 MG Tablet Orally Warfarin Sodium Hydrocortisone 2.5 % Cream as directed Externally to feet Twice a dayamLODIPine Besylate 5 MG Tablet Orally Metoprolol & Diet Manage Prod Vitamin E PriLOSEC Zestril Microzide Aspirin Medication List reviewed and reconciled with the patientNot-Taking/PRN Amiodarone HCl 200 MG Tablet Orally Not-Taking/PRN Warfarin Sodium Not-Taking/PRN Hydrocortisone 2.5 % Cream as directed Externally to feet Twice a dayNot-Taking/PRN amLODIPine Besylate 5 MG Tablet Orally Not-Taking/PRN Metoprolol & Diet Manage Prod Not-Taking/PRN Vitamin E Not-Taking/PRN PriLOSEC Not-Taking/PRN Zestril Not-Taking/PRN Microzide Not-Taking/PRN Aspirin Medication List reviewed and reconciled with the patient * Allergies:?N.K.D.A.yes[Aller gies Verified] Objective: * Vitals:?Ht: 5ft10.5in, Wt:22 0, BMI:31.12, Shoe size: 12EEE, BP:120/80 mm Hg, BS: 111, Ht-cm: 179.07 cm, Wt-k.79 kg. * ???Past [...] palpation, groove hypertrophy , groove ischemia , Bilateral nail borders , T6.?Neurological: ?SENSORY:?Neurological exam demonstrates, reduced light touch sensation, [...] on palpation due to neuropathy, , , 1,3-5 Right foot , 1,2,3,5 Left foot.? Assessment: * Assessment: 1.?Tinea unguium - B35.1?2.? Type 1 diabetes mellitus with diabetic polyneuropathy - E10.42 (Primary)?3.?Ingrown nail - L60.0? Plan: * Treatment: 2.?Tinea unguium?Procedure: 40055-SCVYVYB NAIL, 6 OR MORE 3.?Ingrown nail?Procedure: 37574-Edbrotws Plate * Procedures:?Debride Nail 6-10:?Nail debridement?Performance of this nail treatment by a nonprofessional would put this patients foot and overall health at risk. Therefore, nail debridement was performed extensively to reduce/remove overall nail length, girth, thickness, subungual debris, and necrotic tissue, by manual and/or electrical means through the use of a nail nipper and/or dremel-type grinder set up operator universal, to a more viable healthy nail plate or bed tissue 6-10. Silver nitrate used for any petechial bleeding as necessary. Definitive antifungal treatment options have been reviewed and discussed with the patient. The patient chooses, no pharmaceutical tx - 79119.?Keratoma Treatment:?Parring or Cutting of Benign Hyperkeratotic Lesion(s)?35353 ( >4 Lesions) - The Benign hyperkeratotic lesions, as described above were pared, and/or cut utilizing a sterile #15 blade, tissue nippers, and/or dremel.?Nail Avulsion:?Location?Bilateral nail border , T6.?Anesthesia?was deferred - NEUROPATHY: patient has medically documented neuropathic condition affecting sensation.?Procedure?A fine sterile elevator was placed between the eponychium, nail fold, and nail plate to separate the structures. A sterile nail splitter, and/or sterile 316 blade, was then used to longitudinally section the nail along its entire length through the eponychium to the area under the nail fold. The offending portion of nail was from the nail bed with a rolling action and then removed with a hemostat. No underlying bone was identified. There was minimal bleeding as hemostasis was achieved through the temporary use of either a digital tourniquet or the aforementioned local with epinephrine. A bacitracin sterile dressing was applied. Local wound aftercare instructions were discussed and dispensed. The patient was informed of both conservative and future surgical procedures to prevent recurrence. Tylenol or Motrin was recommended for pain or discomfort (00644) , DIABETES: Matricectomy deferred at this time due to diabetes risk.? * Procedure Codes:?53473 DEBRI DE NAIL, 6 OR MORE, Modifiers: XS 88878 Avulsion Plate, Modifiers: T6 99835 TRIM SKIN LESIONS, OVER 4, Modifiers: XS * Follow Up:?2 Weeks * Images: * Sign off status: Completed true * Provider:Rosi Graff DPM Date:?2023 Generated for J Carlos palacio/Cornell/Jose on:?12/05/2024 11:27 AM EST History and Physical Notes * HPI (History of Present Illness) Category Sub-Category Detail Notes Category Not es At Risk footcare Pt States Last PCP Visit: Date: 4 Examination Category Sub-Category Detail Notes Category Not es Ingrown Nail INSPECTION: Reveals nail inc urvation, pain on palpation, groove hypertrophy , groove ischemia , Bilateral nail borders , T6 Neurological SENSORY: Neurological exa m demonstrates, reduced [...] DIABETES EYE EXAM Diabetic Retinopa thy Screening:: No Findings of Diabetic Eye Exam:: no retin opathy Vascular DP PULSES (B): 2/4, B/L PT PULSES (B): 2/4, B/L Nails NAILS are: elongated,overgr own,dystrophic,greater than 3mm thick,discolored and friable with crumbly malodorous subungual debris, with dull to no pain on palpation due to neuropathy, , , 1,3-5 Right foot , 1,2,3,5 Left foot
[2024-12-05 11:39] LABS: Basophils Percent Auto 0.4 % (0-2); Eosinophils Absolute Auto 0.2 X10*3/uL (0.0-0.4); Eosinophils Percent Auto 3.4 % (0-4); Hematocrit 38.6 % (42.0-52.0); Imm Gran Abs Auto 0.01 X10*3/uL (0.00-0.03); Imm Gran Pct Auto 0.2 % (0.0-0.4); Lymphocytes Absolute Auto 1.7 X10*3/uL (1.2-4.9); Mean Corpuscular HGB Conc 33.7 g/dl (31.0-36.0); Mean Corpuscular Hemoglobin 31.6 pg (27.0-33.0); Mean Corpuscular Volume 93.7 fL (80.0-98.0); Mean Platelet Volume 10.4 fL (9.4-12.4); Monocytes Absolute Auto 0.5 X10*3/uL (0.1-1.2); Monocytes Percent Auto 11.5 % (2-11); Neutrophils Absolute Auto 2.3 x10*3/uL (2.0-8.3); Neutrophils Percent Auto 48.5 % (45-73); Platelet Count 187 X10*3/uL (160-400); Red Blood Count 4.12 X10*6/uL (4.60-5.80); Red Cell Distribution Width 13.2 % (11.0-16.0); White Blood Count 4.7 X10*3/uL (4.8-10.8)
[2024-12-05 11:43] LABS: Appearance Urine Clear; Color Urine Yellow; Glucose Urine UA Negative (Negative); Leukocyte Esterase Urine Negative (Negative); Nitrite Urine Negative (Negative); PH 5.5 (5.0-9.0); Urine Blood Negative (Negative); Urine Ketones Trace mg/dL (Negative); Urine Protein Negative (Neg-Trace)
[2024-12-05 11:44] LABS: Estimated Average Glucose 140 mg/dL; Hemoglobin A1C 162.2472 umol/L; Hemoglobin A1c % 6.5 % (<6.0); Total Hemoglobin (HGBA1C) 3400.0089 umol/L
[2024-12-05 12:09] LABS: Alanine Aminotransferase 13 U/L (0-40); Albumin Level 3.7 g/dL (3.5-5.0); Alkaline Phosphatase 70 U/L (39-117); Anion Gap 13 (12-20); Aspartate Amino Transferase 25 U/L (5-37); Bilirubin Total 0.8 mg/dL (0.0-1.0); Blood Urea Nitrogen 22 mg/dL (9-16); Calcium 9.2 mg/dL (8.4-10.2); Carbon Dioxide 25 mmol/L (22-29); Chloride 105 mmol/L (96-108); Cholesterol 148 mg/dL (<200); Estimated Glomerular Filt Rate > 60; Glucose Fasting 143 mg/dL (60-99); HDL Cholesterol 74 mg/dL (>40); LDL Cholesterol Calculated 63 mg/dL (<100); Potassium 4.8 mmol/L (3.3-5.1); Sodium 138 mmol/L (135-145); Total Protein 6.8 g/dL (6.5-8.0); Triglycerides 58 mg/dL (<150)
[2024-12-05 12:11] LABS: Creatinine Urine 99.78 mg/dL
[2024-12-05 12:28] LABS: Prostate Specific Antigen 2.18 ng/mL (<0.05-4.0)
== END 2024-12-05 10:32 | disposition home or self-care (01) ==
LOC: HO.LAB 10:31
PROVIDERS: PCP Internal Medicine; Visit Provider Internal Medicine
DX: E11.22 Type 2 diabetes mellitus with diabetic chronic kidney disease (principal); I12.9 Hypertensive chronic kidney disease with stage 1 through stage 4 chronic kidney disease, or unspecified chronic kidney disease; N18.9 Chronic kidney disease, unspecified; N40.0 Benign prostatic hyperplasia without lower urinary tract symptoms; Z79.4 Long term (current) use of insulin; Z12.5 Encounter for screening for malignant neoplasm of prostate
CPT/HCPCS: 36415; 80053; 80061; 81003; 82043; 82570; 83036; 84153; 85025

== ENCOUNTER → 2025-02-03 08:49 | Outpatient (REF) | payer MEDICARE, OTHER, SELFPAY ==
--- NOTE | ~2025-02-03 | NM_ITS ---
Lexiscan Myocardial perfusion study Indication: Precordial pain to evaluate for myocardial ischemia Technique: The patient was brought in for a Lexiscan perfusion study on 02/03/2025 and was injected 0.4 mg of Lexiscan intravenously. Within a minute of this injection 35 mCi of sestamibi was given intravenously. Images were obtained using the SPECT gamma camera interlaced with the gating device. Images were obtained in supine position. Resting perfusion study was performed on 02/06/2025. Patient was administered 35 mCi of sestamibi intravenously at rest. Images were then obtained in supine position. Images obtained without without CT attenuation. Total DLP 145 mGy-cm. Images were processed with the software and compared side to side in short axis, horizontal long axis and vertical long axis views. Findings: The stress perfusion study showed nonattenuated images show minimal thinning of the distal lateral wall of the LV myocardium. Attenuated corrected images show overall normal uptake of radiotracer with some minimal thinning of the apex of the LV myocardium.. The gated study shows normal LV systolic function with calculated LVEF of 60%. LV cavity is normal in size. The gated study shows normal systolic wall thickening and contraction of segments. Resting study shows no change in perfusion pattern compared to stress perfusion study. Gating at rest reveals normal systolic wall motion with ejection fraction at 58%. The findings are consistent with [likely normal myocardial perfusion. NM/NM cardiolite stress test Impression: 1. Myocardial perfusion imaging study shows likely normal myocardial perfusion 2. Gated LVEF is 60% 3. Transient ischemic dilatation not present Nondiagnostic changes on EKG. Electronically signed by: Merlin Ricardo MD 02/06/2025 05:07 PM EDT
--- NOTE | 2025-02-03 08:52 | CA_ITS ---
Acquisition Time: 2025-02-03 09:00:49 Total Exercise Time: 00:07:55 Test Indications: Abnormal ECG AFLUTTER Medications: SEE H&P Protocol: JELANI Max HR: 107 BPM 74% of Pred: 144 BPM Max BP: 160/58 mmHG Max Work Load: 7.0 METS Exercise stress test with exercise 5 mins 30 secs pof Jelani Protocol, achieving 70% MPHR (took his am BB), without any anginal symptoms adn no EKG changes on treadmill. Test switched to Lexiscan. Pharmacological stress test with Lexiscan while pt continued to walk on treadmill at 2 mph and at 10% incline, with reports of SOB and dizziness, with isolated PACs and PVCs, with normotensive response to injection. Nondiagnostic EKG for ischemia. In recovery, pt treated with IVP Aminophylline 75 mg to reverse Lexiscan after which pt feeling back to baseline. Nuclear images pending. Test reviewed with Dr. Hanna. PS- BP initially dropped with exercise but came up appropriately. Referred By: Jareth Teixeira Electronically Signed By: Pranav Mccann
--- OUTSIDE RECORDS SUMMARY | 2025-02-03 09:00 | XMS_ITS | Patient Health Record ---
Author Organization [facility] Address [address] [place] [address] Care Team Providers Care Sales Order Specialist Name Role Phone Louis Elizabeth MD Primary Care Provider Girma Oliva Unavailable [phone] Reason For Referral No Information Medications Medication [...] he morning Orally Once a day Active Immunizations Vaccine Route Administration Date Status Comme nts Influenza Unknown 06/26/2018 Administered Influenza Unknown 06/26/2020 Administered Social History Alcohol Screen Question Answer Notes Did you [...] monthly (1 point) Points 2 Interpretation Negative Section Notes: Nonsmoker > 10 yrs ago; no s ig alcohol Nonsmoker > 10 yrs ago; no s ig alcohol Nonsmoker > 10 yrs ago; no s ig alcohol Problems Problem Type SNOMED Code ICD Code Onset Dates Problem Status W/U Status Risk Notes Problem 778668323 Encounter for screening for malignant neoplasm of colon (Z12.11) Active confirmed Problem 726960980790845 Preprocedural examination (Z01.818) Active confirmed Problem History of polyp of colon (620465243) History of colon polyps (Z86.010) Active confirmed Problem 163080338 Family history o f colon cancer (Z80.0) Active confirmed Problem 050753133 Hx of adenomatou s colonic polyps (Z86.010) Active confirmed Problem Diverticulosis of sigmoid colon (608599599) Diverticulosis of sigmoid colon (K57.30) Active confirmed Problem 346939446 Long-term (current) use of anticoagulants, INR goal 2.0-3.0 (Z79.01) Active confirmed Plan Of Treatment Future Test Test Name Order Date COLONOSCOPY 09/14/2013 COLONOSCOPY 02/01/2019 COLONOSCOPY 03/22/2021 Insurance Providers Payer Name Payer Address Payer Phone Subscriber Number Group Number Insured Name Patient Relationship to Insured Coverage Start Date Coverage End Date MEDICARE OF [place] [address] [place] [address] [id number] HAMLET YOUNG Self - patient is the insured [facility] [address] [place] [address] [id number] HAMLET YOUNG Self - patient is the insured Medical (General) History Medical History History ICD Code Denies CA,CVA,Lung disease,renal disease IDDM--on a pump Hypertension Urose[place] in Jun [place] at [facility] [place] [facility] colonoscopies at [facility]-all neg for polyps--last one was before [...] cecum Afib with an ablation 10/2020 at [facility] Dr. Teixeira Surgical History Surgery Date(Month/Year) rotator cuff tear repair 1999 hernia repair left inguinal 2018 hernia repair 2019
--- OUTSIDE RECORDS SUMMARY | 2025-02-03 09:00 | XMS_ITS ---
Author Organization [facility] Address [address] [facility] [place] [address] Care Team Providers Care Business Analyst Sales Operations Name Role Phone Louis Elizabeth MD Primary Care Provider Unavaila carmela Black, Darline Unavailable [phone] Allergies No Known Allergies REASON FOR VISIT [...] . . . for . Active Bag [place] Active Fish Oil Active hydroCHLOROthiazide Active HumaLOG [...] Problem Status W/U Status Risk Notes Problem 08469221 Essential hypertension (I10) Active confirmed Vital Signs Height 5ft10.5in in 10/06/2024 Weight 222 lbs 10/06/2024 BMI 31.4 kg/m2 10/06/2024 Blood pressure systolic 120 mm Hg 10/06/20 24 Blood pressure diastolic 80 mm Hg 024 Procedures Procedure Date Ordered Date Performed Result Body Sit e 16467-UUOPUFK NAIL, 6 OR MORE 10/06/2024 N/A 80652-MJZX SKIN LESIONS, OVER 4 10/06/2024 N/A Encounters Encounter Location Date Provider Diagnosis [facility] [address] [address] 10/06/2024 Darline Graff Type 1 diabetes mellitus with diabetic polyneuropathy E10.42 and Tinea unguium B35.1 Assessments Encounter Date Diagnosis (ICD Code) Assessment Notes Treatment Notes Treatment Clinical Notes Section Notes 10/06/2024 Type 1 diabetes mellitus with diabetic polyneuropathy (ICD-10 - E10.42) 10/06/2024 Tinea unguium (ICD-10 - B35.1) Plan Of Treatment Pending Test Test Name Order Date 52530-CZTVIWO NAIL, 6 OR MORE 10/06/2024 02614-LNME SKIN LESIONS, OVER 4 10/06/20 24 Next Appt Details Follow Up: 3 Months, Reason: Provider Name:Darline Graff , 05/01/2025 02:15:00 PM, [address] [place] [address], [place], [address], Procedure Notes * Category Sub-Category Detail Notes [...] use of a nail nipper and/or dremel-type external grinder tool, to a more viable healthy nail plate [...] to maintain effectiveness in symptomatic relief - 25088 Keratoma Treatment Parring or Cutting o f [...] instrumentation by the physician of record - 32431 Progress Notes * Abraham VERADOB: [birth year] (74 yo M)Acc No.[id number]:10/06/2024 Progress Note Patient:?Abraham VERA Provider:?Darline Graff DPM :1950???Age:74 Y???Sex:Male Beau e:10/06/2024 Address:[address] [place] [address], [place], [place] Pcp:Louis Elizabeth MD Subjective: * Chief Complaints: [...] you an other tobacco user??No * Medications:?TakingBag [place] Fish Oil hydroCHLOROthiazide Lisinopril 40 MG Tablet Orally Metoprolol Tartrate Omeprazole Simvastatin Vitamin D (Cholecalciferol) zzzCompression Stockings 20-30mm Hg 1 pair closed toe- knee high . . . Amiodarone HCl 200 MG Tablet Orally Hydrocortisone 2.5 % Cream as directed Externally to feet Twice a day amLODIPine Besylate 5 MG Tablet Orally Metoprolol & Diet Manage Prod Vitamin E PriLOSEC Zestril Taking Bag [place] Taking Fish Oil Taking hydroCHLOROthiazide Taking Lisinopril [...] NR * Examination: ???Ophthalmology Referral: ?DIABETES EYE EXAM?Procedure Performed:?Yes ?Date of Exam Performed?11/26/2023 ?Diabetic Retinopathy Screening:?No ?Findings of Diabetic Eye Exam:?no retinopathy?Dermatologic: ?SKIN FINDINGS:?Skin exam reveals Keratotic lesion(s) located [...] as own historian for office visit today.?FOOT EXAM:?Lower Extremity Neurological Exam performed:?Yes ?Visual exam of foot performed:?Yes ?Date?10/06/2024 ?Sensory testing performed:?sensations diminished ?Sensory and motor testing performed:?strength diminished ?Pedal pulse taking performed:?2+ ?Footwear Evaluation?Footwear Evaluation performed:?Yes?Orthopedic: ?FOOTWEAR:?Non-Diabetic with no OT.? Assessment: * Assessment: 1.?Tinea unguium - B35.1???2 .?Type 1 diabetes mellitus with diabetic polyneuropathy - E10.42 (Primary)??? Plan: * Treatment: 2.?Tinea unguium?Procedure: 72768-ZHQGMJD NAIL, 6 OR MORE * Procedures:?Debride Nail [...] use of a nail nipper and/or dremel-type external grinder tool, to a more viable healthy nail plate [...] to maintain effectiveness in symptomatic relief - 08616.?Keratoma Treatment:?Parring or Cutting of Benign Hyperkeratotic Lesion(s)?(-57) [...] instrumentation by the physician of record - 32683.? * Procedure Codes:?41132 DEBRI DE NAIL, 6 OR MORE, Modifiers: XS 62278 TRIM SKIN LESIONS, OVER 4, Modifiers: XS [...] Graff DPM Date:?2023 Generated for J Carlos palacio/Cornell/eTransmitting on:?02/03/2025 09:00 AM EDT History and Physical Notes * HPI (History [...] SUB MTH (s) 5 B/L VERRUCA: Orthopedic FOOTWEAR EVALUATION: Non-Diabetic with no OT General Examination GENERAL [...]
--- OUTSIDE RECORDS SUMMARY | 2025-02-03 09:00 | XMS_ITS ---
Author Organization [facility] Address [address] [facility] [place] [address] Care Team Providers Care University Relations Director Name Role Phone Louis Elizabeth MD Primary Care Provider Unavaila ble Black, Darline Unavailable [phone] Allergies No Known Allergies REASON FOR VISIT [...] Amiodarone HCl 200 MG Orally Not-Taking Bag [place] Active HumaLOG Active Social History Tobacco Use: [...] Ordered Date Performed Result Body Sit e 64463-TMLFDHK NAIL, 6 OR MORE 06/30/2024 N/A 38495-Jqwhtosr Plate 06/30/2024 N/A 85240-MHSL SKIN LESIONS, OVER 4 06/30/2024 N/A Encounters Encounter Location Date Provider Diagnosis [facility] [place] [address] [place] [address] 06/30/2024 Darline Graff Type 1 diabetes mellitus [...] Treatment Pending Test Test Name Order Date 39339-RYBVUZE NAIL, 6 OR MORE 06/30/2024 95310-Aicgauls Plate 06/30/2024 12051-RRLO SKIN LESIONS, OVER 4 06/30/20 24 Next Appt Details Follow Up: 2 Weeks, Reason: Provider Name:Darline Graff , 05/01/2025 02:15:00 PM, [address] [place] [address], [phone], Procedure Notes * Category Sub-Category Detail Notes [...] Motrin was recommended for pain or discomfort (02030) , DIABETES: Matricectomy deferred at this time [...] use of a nail nipper and/or dremel-type drill grinder, to a more viable healthy nail plate or bed tissue 6-10. Silver nitrate used for any petechial bleeding as necessary. Definitive antifungal treatment options have been reviewed and discussed with the patient. The patient chooses, no pharmaceutical tx - 32278 Keratoma Treatment Parring or Cutting o f Benign Hyperkeratotic Lesion(s) 62433 ( >4 Lesions) - The Benign hyperkeratotic lesions, as described above were pared, and/or cut utilizing a sterile #15 blade, tissue nippers, and/or dremel Progress Notes * Abraham VERADOB: [birth year] (73 yo M)Acc No.[id number]:06/30/2024 Progress Note Patient:?[place] Abraham Davidson Provider:?Darline Graff DPM :1950???Age:73 Y???Sex:Male Beau e:06/30/2024 Address:[address] [place] [address], [place], [facility] Pcp:Louis Elizabeth MD Subjective: * Chief Complaints: [...] ?Marital status: . ?Occupation: Retired. * Medications:?TakingBag [place] Fish Oil hydroCHLOROthiazide HumaLOG Lisinopril 40 MG Tablet Orally Metoprolol Tartrate Omeprazole Simvastatin Vitamin D (Cholecalciferol) zzzCompression Stockings 20-30mm Hg 1 pair closed toe- knee high . . .Taking Bag [place] Taking Fish Oil Taking hydroCHLOROthiazide Taking HumaLOG [...] Manage Prod Not-Taking/PRN Vitamin E Not-Taking/PRN PriLOSEC Not- Taking/PRN Zestril Not-Taking/PRN Microzide Not-Taking/PRN Aspirin Medication List [...] 5.9 * Examination: ???Ophthalmology Referral: ?DIABETES EYE EXAM?Diabetic Retinopathy Screening:?No ?Findings of Diabetic Eye Exam:?no [...] - L60.0? Plan: * Treatment: 2.?Tinea unguium?Procedure: 92861-FVFBRHX NAIL, 6 OR MORE 3.?Ingrown nail?Procedure: 55370-Fkrklkks Plate * Procedures:?Debride Nail 6-10:?Nail debridement?Performance of this nail treatment by a nonprofessional would put this patients foot and overall health at risk. Therefore, nail debridement was performed extensively to reduce/remove overall nail length, girth, thickness, subungual debris, and necrotic tissue, by manual and/or electrical means through the use of a nail nipper and/or dremel-type drill grinder, to a more viable healthy nail plate or bed tissue 6-10. Silver nitrate used for any petechial bleeding as necessary. Definitive antifungal treatment options have been reviewed and discussed with the patient. The patient chooses, no pharmaceutical tx - 10832.?Keratoma Treatment:?Parring or Cutting of Benign Hyperkeratotic Lesion(s)?77554 ( >4 Lesions) - The Benign hyperkeratotic [...] Motrin was recommended for pain or discomfort (34860) , DIABETES: Matricectomy deferred at this time due to diabetes risk.? * Procedure Codes:?98397 DEBRI DE NAIL, 6 OR MORE, Modifiers: XS 68738 Avulsion Plate, Modifiers: T6 85561 TRIM SKIN LESIONS, OVER 4, Modifiers: XS * Follow Up:?2 Weeks * Images: * Sign off status: Completed true * Provider:?Darline Graff DPM Date:?2023 Generated for J Carlos palacio/Cornell/eTandrewsmitting on:?02/03/2025 09:00 AM EDT History and Physical [...]
--- OUTSIDE RECORDS SUMMARY | 2025-02-03 09:00 | XMS_ITS | Patient Health Record ---
[facility] Organization [facility] Address [address] [facility] [place] [address] Care Team Providers Care Manufacturing Leader Name Role Phone Louis Elizabeth MD Primary Care Provider Darline Ricks Unavailable [phone] Allergies No Known Allergies Results Component Value Reference Range Notes HEMOGLOBIN A1C (GLYCOHEMOGLO BIN) Reviewed date:11/06/2024 07:39:47 AM Interpretation: Performing Lab: Notes/Report: HEMOGLOBIN A1C % (HH) 5.9 HEMOGLOBIN A1C (GLYCOHEMOGLO BIN) Reviewed date:01/12/2025 02:14:30 PM Interpretation: Performing Lab: Notes/Report: HEMOGLOBIN A1C % (HH) 6.9 HEMOGLOBIN A1C (GLYCOHEMOGLO BIN) Reviewed date:10/06/2024 01:18:31 PM Interpretation: Performing Lab: Notes/Report: TOTAL HEMOGLOBIN (HGBA1C) 5.9 Reason For Referral No Information Medications Medication SIG (Take, Route, Frequency, Duration) Notes Start Date End Date Status Bag [place] Active amLODIPine Besylate 5 MG Orally Active Fish Oil Active Metoprolol & Diet Manage Prod Active hydroCHLOROthiazide Active Vitamin E Active Lisinopril 40 MG Orally Act cliff PriLOSEC Active Microzide Not-Taking zzzCompression Stockings 20-30mm Hg . . . for . Active Aspirin Not-Taking Amiodarone HCl 200 MG Orally Active Hydrocortisone 2.5 % as directed Externally to feet Twice a day for 30 days Active Metoprolol Tartrate Active Zestril Active Omeprazole Active HumaLOG Not-Taking Simvastatin Active Warfarin Sodium Not- Taking Vitamin D (Cholecalciferol) Active Immunizations Vaccine Route Administration Date Status [facility] Moderna Vaccine Unknown 01/24/2021 Administere d 1st [...] Problem Acquired hammer toe of right foot (5313248506754701 ) Other hammer toe(s) (acquired), right foot (M20.41) Active confirmed Problem Acquired hammer toe of left foot (9119081356074501 ) Other hammer toe(s) (acquired), left foot (M20.42) Active confirmed Problem Polyneuropathy due to diabetes mellitus type I (031236236) Type 1 diabetes mellitus with diabetic polyneuropathy (E10.42) Active confirmed Problem 52085519 Essential hypertension (I10) Active confirmed Vital Signs Blood pressure diastolic 80 mm Hg 01/12/2025 Height 5ft10.5in in 01/12/2025 Blood pressure systolic 125 mm Hg 01/12/2025 Weight 220 lbs 01/12/2025 BMI 31.12 kg/m2 01/12/2025 Procedures Procedure Date Ordered Date Performed Result Body Sit e 08313-PBHEPVP NAIL, 6 OR MORE 03/07/2024 N/A 97294-Rnpebzim Plate 03/07/2024 N/A 76759-Zqupchwp Plate Each Additional 03/07/2024 N/A 31235-XTBH SKIN LESIONS, OVER 4 03/07/2024 N/A 44943-QNHXRWR NAIL, 6 OR MORE 06/30/2024 N/A 66405-Swmitjea Plate 06/30/2024 N/A 97301-PVFT SKIN LESIONS, OVER 4 06/30/2024 N/A 05528-BRCUNAO NAIL, 6 OR MORE 10/06/2024 N/A 42634-SVOH SKIN LESIONS, OVER 4 10/06/2024 N/A 27075-YFGDWUJ NAIL, 6 OR MORE 01/12/2025 N/A 95408-JRDX SKIN LESIONS, OVER 4 01/12/2025 N/A Encounters Encounter Location Date Provider Diagnosis [address] [address] 03/07/2024 Darline Black Type 1 diabetes mellitus with diabetic polyneuropathy E10.42 ; Tinea unguium B35.1 and Ingrown nail L60.[address] [address] 06/30/2024 Darline Black Type 1 diabetes mellitus with diabetic polyneuropathy E10.42 ; Tinea unguium B35.1 and Ingrown nail L60.[address] [address] 10/06/2024 Darline Black Type 1 diabetes mellitus with diabetic polyneuropathy E10.42 and Tinea unguium B35.[address] [address] 01/12/2025 Darline Black Type 1 diabetes mellitus with [...] mellitus with diabetic polyneuropathy (ICD-10 - E10.42) 01/12/2025 Type 1 diabetes mellitus with diabetic polyneuropathy (ICD-10 - E10.42) 01/12/2025 Tinea unguium (ICD-10 - B35.1) 03/07/2024 Tinea unguium (ICD-10 - B35.1) 06/30/2024 Ingrown nail (ICD-10 - L60.0) 03/07/2024 Ingrown nail (ICD-10 - L60.0) Plan Of Treatment Pending Test Test Name Order Date 15970-YRGJNIQ NAIL, 6 OR MORE 10/10/2015 21024-YEQMDLM NAIL, 6 OR MORE 01/09/2016 30610-IPDJWRX NAIL, 6 OR MORE 04/09/2016 90682-XPJFEMC NAIL, 6 OR MORE 07/16/2016 14992-UXAOBIB NAIL, 6 OR MORE 10/30/2016 55630-AFWFERM NAIL, 6 OR MORE 01/29/2017 25449-GUBQAJH NAIL, 6 OR MORE 05/11/2017 79405-CBYNSBW NAIL, 6 OR MORE 08/10/2017 59063-BNOOKCR NAIL, 6 OR MORE 11/19/2017 48686-HRWJGUG NAIL, 6 OR MORE 02/18/2018 84521-ILOWVRI NAIL, 6 OR MORE 05/20/2018 31888-DWCBTJQ NAIL, 6 OR MORE 08/19/2018 66093-QCVDLFP NAIL, 6 OR MORE 11/22/2018 06626-KQDLBLJ NAIL, 6 OR MORE 02/03/2019 78259-EXKLXBL NAIL, 6 OR MORE 05/09/2019 88588-TMCNOQI NAIL, 6 OR MORE 08/11/2019 79154-OKRHSUQ NAIL, 6 OR MORE 11/17/2019 37714-ZIHPADK NAIL, 6 OR MORE 02/20/2020 39311-MMVURIL NAIL, 6 OR MORE 05/21/2020 50847-NVNYBMH NAIL, 6 OR MORE 08/23/2020 79908-UBIRYXH NAIL, 6 OR MORE 12/03/2020 45473-XJKHFHC NAIL, 6 OR MORE 03/04/2021 19569-ATKWQLG NAIL, 6 OR MORE 06/10/2021 57770-NSNQKJB NAIL, 6 OR MORE 09/16/2021 48166-OIBDMRF NAIL, 6 OR MORE 01/06/2022 40438-WWSIUUJ NAIL, 6 OR MORE 04/10/2022 34774-OKWUNQO NAIL, 6 OR MORE 07/14/2022 63961-PNMFLUR NAIL, 6 OR MORE 11/03/2022 82371-IHDFGGN NAIL, 6 OR MORE 02/23/2023 32878-TTRTOGU NAIL, 6 OR MORE 06/08/2023 54761-YBNEETK NAIL, 6 OR MORE 08/31/2023 40187-RZOQXPC NAIL, 6 OR MORE 12/07/2023 32937-EQUVIXT NAIL, 6 OR MORE 03/07/2024 75762-PWZZQUW NAIL, 6 OR MORE 06/30/2024 14831-RGZAZVM NAIL, 6 OR MORE 10/06/2024 20954-FPRZRKF NAIL, 6 OR MORE 01/12/2025 61184-Xgio Destruction, 1-14 11/03/2022 65454-Zktg Destruction, 1-14 02/23/2023 31798-Hkarycsd Plate 02/23/2023 13271-Vbuaxbni Plate 01/06/2022 05299-Kwbyxuqh Plate 07/14/2022 97703-Qjwtpoay Plate 04/10/2022 55324-Qkplmqrg Plate 06/30/2024 27461-Hrkhhcge Plate 03/07/2024 69390-Anekoncz Plate 06/08/2023 34432-Jvofjwmz Plate 09/16/2021 84390-Jjjbxqng Plate 06/10/2021 62696-Boocvzej Plate 12/03/2020 47062-Vophioku Plate 05/09/2019 88324-Mjzfuknp Plate 10/10/2015 88331-Qbnxledz Plate 01/29/2017 77895-Atppygdj Plate 10/30/2016 23082-Wmnkgtwr Plate 07/16/2016 94416-Tazhvltg Plate 04/09/2016 05567-Focwedai Plate 01/09/2016 63442-Nzjrkszn Plate Each Additional 75920-Hfqrhouv Plate Each Additional 28319-Eoszqrxd Plate Each Additional 05578-Sjvpodvs Plate Each Additional 02/2017 82312-Iwmmzvpg Plate Each Additional 03/2017 22122-Lxgcfhuy Plate Each Additional 33053-Rnqaztzm Plate Each Additional 05/2021 30672-Kslfebah Plate Each Additional 08234-Fhqqwxhb Plate Each Additional 63011-Aklgedfq Plate Each Additional 33187-Trgmlfrt Plate Each Additional 10/2022 09301-YCRC SKIN LESIONS, OVER 4 02/24/20 05892-GFSK SKIN LESIONS, OVER 4 06/08/20 52898-JUFN SKIN LESIONS, OVER 4 04/10/20 76515-TMWL SKIN LESIONS, OVER 4 07/14/20 23500-VKVF SKIN LESIONS, OVER 4 11/03/19 80791-DMEK SKIN LESIONS, OVER 4 03/07/20 39268-SKHC SKIN LESIONS, OVER 4 12/07/19 89407-TOKW SKIN LESIONS, OVER 4 08/31/20 85281-PZEK SKIN LESIONS, OVER 4 06/30/20 50839-XXXL SKIN LESIONS, OVER 4 10/06/20 73547-RZMN SKIN LESIONS, OVER 4 01/13/20 10086-OUQR SKIN LESIONS, OVER 4 09/16/20 35884-HUGS SKIN LESIONS, OVER 4 06/10/20 71460-XMJN SKIN LESIONS, OVER 4 02/20/20 20 96873-IXBB SKIN LESIONS, OVER 4 01/07/20 69969-HNNR SKIN LESIONS, OVER 4 03/04/20 59265-SIFE SKIN LESIONS, OVER 4 12/03/19 21 13961-RPMI SKIN LESIONS, OVER 4 08/11/20 19 60054-BTLN SKIN LESIONS, OVER 4 05/09/20 19 11507-FOJX SKIN LESIONS, OVER 4 02/04/20 19 99758-YLOM SKIN LESIONS, OVER 4 11/22/19 19 53297-JRWY SKIN LESIONS, OVER 4 08/23/20 20 47928-LTLI SKIN LESIONS, OVER 4 05/21/20 20 70091-LZMD SKIN LESIONS, OVER 4 11/17/19 20 62793-RDED SKIN LESIONS, OVER 4 10/10/20 15 08986-FOOU SKIN LESIONS, OVER 4 08/10/20 17 38692-DIIN SKIN LESIONS, OVER 4 01/30/20 05218-EPLR SKIN LESIONS, OVER 4 05/11/20 47638-JKGI SKIN LESIONS, OVER 4 08/19/20 18 81192-BUJI SKIN LESIONS, OVER 4 05/20/20 18 37576-EYOM SKIN LESIONS, OVER 4 02/19/20 18 99986-WKXX SKIN LESIONS, OVER 4 11/19/19 18 30433-RKJO SKIN LESIONS, OVER 4 10/30/19 17 00153-FEYT SKIN LESIONS, OVER 4 07/16/20 16 90156-FRZH SKIN LESIONS, OVER 4 04/09/20 16 26512-RNMT SKIN LESIONS, OVER 4 01/09/20 16 91615-Cysw. Subungual Hematoma 0 HEMOGLOBIN A1C (GLYCOHEMOGLOBIN) 020 Next Appt Details Provider Name:Darline Graff , 05/01/2025 02:15:00 PM, [address] [place], [address], Insurance Providers Payer Name Payer Address Payer Phone Subscriber Number Group Number Insured Name Patient Relationship to Insured Coverage Start Date Coverage End Date Medicare National [employer] [address] [facility] [place] [address] [id number] Abraham Vera Self - patient is the insured [facility] [address] [place] [address] [id number] Abraham Vera Self - patient is the insured Medical (General) History Medical History History ICD Code diabetes high blood pressure measles mumps chicken pox Bleeding ulcer Cataracts Surgical History Surgery Date(Month/Year) rotator cuff surgery 2000 Heart Catheterization 09/2020 carpal tunnel 01/2023 Hospitalization History Reason Date(Month/Year) [facility]- Cardioversion- afib 11/22/20
--- OUTSIDE RECORDS SUMMARY | 2025-02-03 09:01 | XMS_ITS ---
[facility] Organization [facility] Address [address] [facility] [place] [address] Care Team Providers Care Executive Chairman Of The Board Name Role Phone Louis Elizabeth MD Primary Care Provider Unavaila ble Black, Darline Unavailable [phone] Allergies No Known Allergies REASON FOR VISIT At Risk Footcare Medications Medication SIG (Take, Route, Frequency, Duration) Notes Start Date End Date Status Vitamin E Active PriLOSEC Active Zestril Active HumaLOG Not-Taking Warfarin Sodium Not- Taking amLODIPine Besylate 5 MG Orally Active Metoprolol & Diet Manage Prod Active zzzCompression Stockings 20-30mm Hg . . . for . Active Amiodarone HCl 200 MG Orally Active Hydrocortisone 2.5 % as directed Externally to feet Twice a day for 30 days Active Lisinopril 40 MG Orally Act cliff Metoprolol Tartrate Active Omeprazole Active Simvastatin Active Vitamin D (Cholecalciferol) Active Bag [place] Active Fish Oil Active hydroCHLOROthiazide Active Microzide Not-Taking Aspirin Not-Taking Social History Tobacco Use: Social History Observation Description Date Details (start date - stop date) Never Smoker NA - NA Tobacco Use/Smoking Question Answer Notes Are you a: nonsmoker Additional Findings: Tobacco Non-User Current no n-smoker Tobacco use other than smoking: Question Answer Notes Are you an other tobacco user? No Vital Signs Height 5ft10.5in in 01/12/2025 Weight 220 lbs 01/12/2025 BMI 31.12 kg/m2 01/12/2025 Blood pressure systolic 125 mm Hg 01/13/20 25 Blood pressure diastolic 80 mm Hg 025 Procedures Procedure Date Ordered Date Performed Result Body Sit e 65545-ETEEYFO NAIL, 6 OR MORE 01/12/2025 N/A 72743-IBMR SKIN LESIONS, OVER 4 01/12/2025 N/A Encounters Encounter Location Date Provider Diagnosis [facility] [address] [address] 01/12/2025 Darline Graff Type 1 diabetes mellitus with diabetic polyneuropathy E10.42 and Tinea unguium B35.1 Assessments Encounter Date Diagnosis (ICD Code) Assessment Notes Treatment Notes Treatment Clinical Notes Section Notes 01/12/2025 Type 1 diabetes mellitus with diabetic polyneuropathy (ICD-10 - E10.42) 01/12/2025 Tinea unguium (ICD-10 - B35.1) Plan Of Treatment Pending Test Test Name Order Date 24195-DGEXSLH NAIL, 6 OR MORE 01/12/2025 93645-UFFS SKIN LESIONS, OVER 4 01/13/20 25 Next Appt Details Follow Up: 3 Months, Reason: Provider Name:Darline Graff , 05/01/2025 02:15:00 PM, [address] [place] [address], [phone], Procedure Notes * Category Sub-Category Detail Notes Debride Nail 6-10 Nail debridement Due to the cl inical pathology outlined in the exam findings, performance of this nail treatment is medically necessary as its management by an unskilled/untrained nonprofessional would put this patients foot and overall health at risk. Therefore, debridement to affected nail(s), as described in exam ( TA, T1, T2, T3, T4, T5, T6, T7, T8, T9, ), was performed exclusively by the physician of record to reduce/remove overall nail length, girth, thickness, subungual debris, and necrotic tissue, by manual and/or electrical means through the use of a nail nipper and/or dremel-type rail grinder, to a more viable healthy nail [...] to maintain effectiveness in symptomatic relief - 00915 Keratoma Treatment Parring or Cutting o f [...] instrumentation by the physician of record - 98145 Progress Notes * Abraham VERADOB: [birth year] (74 yo M)Acc No.[id number]:01/12/2025 Progress Note Patient:?Abraham VERA Provider:?Darline Graff DPM :1950???Age:74 Y???Sex:Male Beau e:01/12/2025 Address:[address] [place] [address], [id number] Pcp:Louis Elizabeth MD Subjective: * Chief Complaints: * ???At Risk Footcare * HPI: ???At Risk footcare:?Pt States Last PCP Visit:?Date?12/22/2024 * ROS:?General/Constitutional:?Nausea?denies.?Vomiting?denies.?Hunger Thirst?denies.?Loss appetite?denies.?Chills?denies.?Fatigue?denies.?Fever?denies.?Night Sweats?denies.?Unexplained weight loss?denies.?Unexplained [...] than smoking?Are you an other tobacco user??No ???Miscellaneous:?Caffeine: no. ?Children: yes. ?Exercise: yes, cut firewood. ?Marital status: . ?Occupation: Retired. * Medications:?TakingBag [place] Fish Oil hydroCHLOROthiazide Lisinopril 40 MG Tablet Orally Metoprolol Tartrate Omeprazole Simvastatin Vitamin D (Cholecalciferol) zzzCompression Stockings 20-30mm Hg 1 pair closed toe- knee high . . . Amiodarone HCl 200 MG Tablet Orally Hydrocortisone 2.5 % Cream as directed Externally to feet Twice a day amLODIPine Besylate 5 MG Tablet Orally Metoprolol & Diet Manage Prod Vitamin E PriLOSEC Zestril Taking Bag [place] Taking Fish Oil Taking hydroCHLOROthiazide Taking Lisinopril [...] Verified] Objective: * Vitals:?Ht: 5ft10.5in, Wt: 2 20, BMI: 31.12, Shoe size: 12EEE, BP: 125/80 mm Hg, BS: 110, Ht-cm: 179.07 cm, Wt-k.79 kg. * ???Past Orders: ???Lab:HEMOGLOBIN A1C (GLYCO HEMOGLOBIN) (Order Date - 11/26/2024) (Collection Date & Time - 11/26/2024 02:13 PM) ? Value Reference Range ?HEMOGLOBIN A1C % (HH) 6.9 * Examination: ???Ophthalmology Referral: ?DIABETES EYE EXAM?Procedure Performed:?Yes ?Date of Exam Performed?12/24/2024 ?Findings of Diabetic Eye Exam:?no retinopathy?General Examination: ?GENERAL APPEARANCE:?Reveals a pleasant, alert, well nourished, well- developed, well hydrated individual, who demonstrates proper attention to hygiene/body habitus, and is in no acute distress, Pt serves as own historian for office visit today.?ORIENTED:?person, place, and time.?Dermatologic: ?SKIN FINDINGS:?Skin exam reveals Keratotic lesion(s) located [...] to no pain on palpation due to neuropathy,, TA, T1, T2, T3, T4, T5, T6, T7, T8, T9.? Assessment: * Assessment: 1.?Type 1 diabetes mellitus with diabetic polyneuropathy - E10.42 (Primary)???2.?Tinea unguium - B35.1??? Plan: * Treatment: 2.?Tinea unguium?Procedure: 87512-PHHYMDQ NAIL, 6 OR MORE * Procedures:?Debride Nail 6-10:?Nail debridement?Due to the clinical pathology outlined in the exam findings, performance of this nail treatment is medically necessary as its management by an unskilled/untrained nonprofessional would put this patients foot and overall health at risk. Therefore, debridement to affected nail(s), as described in exam ( TA, T1, T2, T3, T4, T5, T6, T7, T8, T9, ), was performed exclusively by the physician of record to reduce/remove overall nail length, girth, thickness, subungual debris, and necrotic tissue, by manual and/or electrical means through the use of a nail nipper and/or dremel-type rail grinder, to a more viable healthy nail plate or bed tissue 6- 10 nails in total. Silver nitrate was used for any petechial bleeding as necessary. Definitive antifungal treatment options, both pharmaceutical and surgical, have been reviewed and discussed with the patient. The patient solely prefers the use of intermittent/as needed professional debridement services for their nail condition and understands the need for additional periodic treatments to maintain effectiveness in symptomatic relief - 58015.?Keratoma Treatment:?Parring or Cutting of Benign Hyperkeratotic Lesion(s)?(-57) [...] instrumentation by the physician of record - 11332.? * Procedure Codes:?85228 DEBRI DE NAIL, 6 OR MORE, Modifiers: XS 99571 TRIM SKIN LESIONS, OVER 4, Modifiers: XS * Preventive Medicine:? ??Screening/Special Tests:?Fall Risk?Screening:?No falls in the past year ?FALLS: Screening for Future Fall Risk?Have you had any falls with injury in the past year??No * Follow Up:?3 Months * Images: * Sign off status: Completed true * Provider:?Darline Graff DPM Date:?2024 Generated for J Carlos palacio/[place]/eTransmitting on:?02/03/2025 09:00 AM EDT History and Physical Notes * HPI (History of Present Illness) Category Sub-Category Detail Notes Category Not es At Risk footcare Pt States Last PCP Visit: Date: Examination Category Sub-Category Detail Notes Category Not [...] B/L, SUB MTH (s) 5 B/L VERRUCA: General Examination GENERAL APPEARANCE: Reveals a pleasant, alert, well nourished, well-developed, well hydrated individual, who demonstrates proper attention to hygiene/body habitus, and is in no acute distress, Pt serves as own historian for office visit today ORIENTED: person, place, and t asuncion Ophthalmology Referral DIABETES EYE EXAM Procedure Perform ed:: Yes ?Date of Exam Performed: 12/24/2024 Findings of Diabetic Eye Exam:: no retin opathy Vascular DP PULSES (B): 2/4, B/L PT PULSES (B): 2/4, B/L Nails NAILS are: elongated,overgr own,dystrophic,greater than 3mm thick,discolored and friable with crumbly malodorous subungual debris, with dull to no pain on palpation due to neuropathy,, TA, T1, T2, T3, T4, T5, T6, T7, T8, T9
== END ==
LOC: HO.CARD 08:49
PROVIDERS: Visit Provider Internal Medicine
DX: R07.2 Precordial pain (principal)
CPT/HCPCS: 78452; 93017; A9500; J0280; J2785

== ENCOUNTER → 2025-02-03 08:52 | Outpatient (BNV) | payer MEDICARE, OTHER, SELFPAY | DX: R06.02 Shortness of breath (principal); I49.1 Atrial premature depolarization; I49.3 Ventricular premature depolarization | CPT/HCPCS: 78452; 93016; 93018 ==

== ENCOUNTER → 2025-02-10 07:44 | Outpatient (REF) | payer MEDICARE, OTHER, SELFPAY ==
--- OUTSIDE RECORDS SUMMARY | 2025-02-10 07:46 | XMS_ITS | Patient Health Record ---
Author Organization [facility] Address [address] [place] [address] Care Team Providers Care Rubber Tile Floor Layer Name Role Phone oLuis Elizabeth MD Primary Care Provider Girma Oliva Unavailable [phone] Reason For Referral No Information Medications Medication [...] Problem Status W/U Status Risk Notes Problem 620536275 Encounter for screening for malignant neoplasm of colon (Z12.11) Active confirmed Problem 964613924010425 Preprocedural examination (Z01.818) Active confirmed Problem History of polyp of colon (situation) (963215498) History of colon polyps (Z86.010) Active confirmed Problem 290773389 Family history o f colon cancer (Z80.0) Active confirmed Problem 972105786 Hx of adenomatou s colonic polyps (Z86.010) Active confirmed Problem Diverticulosis of sigmoid colon (766589832) Diverticulosis of sigmoid colon (K57.30) Active confirmed Problem 428508121 Long-term (current) use of anticoagulants, INR goal 2.0-3.0 (Z79.01) Active confirmed Plan Of Treatment Future Test Test Name Order Date COLONOSCOPY 09/14/2013 COLONOSCOPY 02/01/2019 COLONOSCOPY 03/22/2021 Insurance Providers Payer Name Payer Address Payer Phone Subscriber Number Group Number Insured Name Patient Relationship to Insured Coverage Start Date Coverage End Date MED[place]ARE OF [place] [address] [place] [address] [id number] HAMLET YOUNG Self - patient is the insured [facility] [address] [place] [address] [id number] HAMLET YOUNG Self - patient is the insured Medical (General) History Medical History History ICD Code Denies [place],CVA,Lung disease,renal disease IDDM--on a pump Hypertension Urosepsis in Jun 2013 at [facility] 3 or 4 colonoscopies at [facility]-all neg for polyps--last one was before 2007 [...] cecum Afib with an ablation 10/[address] [facility] [address] Teixeira Surgical History Surgery Date(Month/Year) rotator cuff tear repair 1999 hernia repair left inguinal 2018 hernia repair 2019
--- NOTE | 2025-02-10 07:47 | CA_ITS ---
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 Study Quality: Fair/Contrast ECG Rhythm: Sinus Conclusions: - 1. Low normal LV ejection fraction 50-55% with grade 2 diastolic dysfunction 2. Moderately dilated left atrium 3. Mild mitral regurgitation 4. At least moderately elevated right ventricular systolic pressure 5. Mildly dilated ascending aorta 3.9 cm 6. No pericardial effusion Findings Procedure Information Contrast agent, definity, is being given per protocol without apparent complications. Left Ventricle Normal left ventricular cavity size. There is normal left ventricular wall thickness. The left ventricular systolic function is low normal. The visually estimated ejection fraction is between 50-55%. Spectral Doppler is indicative of a pseudonormal filling pattern. Elevated left atrial and left ventricular end-diastolic pressures. E/E prime ratio is >15, consistent with elevated filling pressures. Evidence suggests grade II (moderate) diastolic dysfunction. Right Ventricle Normal right ventricular cavity size and systolic function. Atria The left atrium is moderately dilated. There is no evidence of interatrial shunt. The right atrium is mildly dilated. Aortic Valve There is mild calcification of the aortic valve. There is no aortic valve stenosis. There is no aortic valve regurgitation. Mitral Valve There is mild anterior and posterior mitral leaflet thickening. There is mild mitral annular calcification. There is mild mitral valve regurgitation. There is no mitral valve stenosis. Pulmonic Valve The pulmonic valve was not well visualized. Tricuspid Valve Likely normal tricuspid valve structure and function. The right ventricular systolic pressure is not calculated. Indeterminate right atrial pressure. Great Vessels The pulmonary artery was not well visualized. There is mild dilatation of the ascending aorta measuring 3.90 cm. Small plaque is seen in the sino tubular ridge. Venous The inferior vena cava was not well visualized. Pericardium/Pleural There is no evidence of pericardial effusion. Prior Study Comparison Changes noted compared to prior study dated: 10/17/2020. LV function has marginally reduced and ascending aorta is dilated Measurements 2D Linear Measurements IVSd: 1.31 0.6-0.9/0.6-1.0 cm LVIDd: 5.00 3.9-5.3/4.2-5.9 cm LVIDd Index: 2.27 2.4-3.2/2.2-3.1 cm/m2 LVIDs: 3.06 2.0-3.6 cm LVPWd: 1.07 0.7-1.1 cm LA Diam: 3.90 2.7-3.8/3.0-4.0 cm LAIDs Index: 1.77 1.5-2.3 cm/m2 LV Mass: 288.03 67-162/88-224 g LV Mass Index: 130.92 43-95/49-115 g/m2 LVOT Diam: 2.20 3.0+(-)1.3 cm 2D Systolic Function EF 4C: 54.50 >55% EF 2C: 50.20 >55% EF BiP: 50.90 >55% Mitral Valve MV Pk E: 0.72 MV PK A: 0.55 MV Decel Time: 212.00 E/A: 1.30 E'Lateral: 5.22 E'Medial: 3.05 E/E' Med: 23.70 E/E' Lat: 13.90 PHT: 62.00 MVA PHT: 3.55 Decel Kaufman: 3.41 Aortic Valve AoV Pk Ty: 1.61 AoV Mn Ty: 1.15 AoV VTI: 0.49 AoV Pk Grad: 10.00 Aov Mn Grad: 6.00 VINOD Cont.VTI: 2.18 LVOT LVOT Pk Ty: 0.92 LVOT Mn Ty: 0.63 LVOT VTI: 0.28 LVOT Pk Grad: 3.00 LVOT Mn Grad: 2.00 LVOT Diam: 2.20 LVOT Area: 3.80 Diastolic Function MV Pk E: 0.72 MV Pk A: 0.55 E/A: 1.30 E'Medial: 3.05 E/E' Med: 23.70 E' Laterial: 5.22 E/E' Lat: 13.90 Right Ventricle TAPSE (mm): 24.40 TVS' Ty: 11.90 Tricuspid Valve TR Pk Ty: 3.43 TR Pk Grad: 47.00 Great Vessels Aorta Sinus of Valsalva: 3.71 2.0-3.5 cm Ao Asc: 3.90 2.1-3.4 cm Updated in Other Vendor System with Status of Final Merlin Ricardo MD electronically signed on 02/10/2025 3:01:54 PM with status of Final
--- OUTSIDE RECORDS SUMMARY | 2025-02-10 07:47 | XMS_ITS ---
Author Organization [facility] Address [address] [facility] [place] [address] Care Team Providers Care Supervisor Grading Name Role Phone Louis Elizabeth MD Primary Care Provider Unavaila carmela Black, Darline Unavailable [phone] Allergies No Known Allergies REASON FOR VISIT [...] . . . for . Active Bag [place] Active Fish Oil Active hydroCHLOROthiazide Active HumaLOG [...] Problem Status W/U Status Risk Notes Problem 76796666 Essential hypertension (I10) Active confirmed Vital Signs Height 5ft10.5in in 10/06/2024 Weight 222 lbs 10/06/2024 BMI 31.4 kg/m2 10/06/2024 Blood pressure systolic 120 mm Hg 10/06/20 24 Blood pressure diastolic 80 mm Hg 024 Procedures Procedure Date Ordered Date Performed Result Body Sit e 34422-XAMWRDK NAIL, 6 OR MORE 10/06/2024 N/A 64500-CTND SKIN LESIONS, OVER 4 10/06/2024 N/A Encounters Encounter Location Date Provider Diagnosis [facility] [address] [address] 10/06/2024 Darline Graff Type 1 diabetes mellitus with diabetic polyneuropathy E10.42 and Tinea unguium B35.1 Assessments Encounter Date Diagnosis (ICD Code) Assessment Notes Treatment Notes Treatment Clinical Notes Section Notes 10/06/2024 Type 1 diabetes mellitus with diabetic polyneuropathy (ICD-10 - E10.42) 10/06/2024 Tinea unguium (ICD-10 - B35.1) Plan Of Treatment Pending Test Test Name Order Date 61294-KFMVXRV NAIL, 6 OR MORE 10/06/2024 50145-NNDQ SKIN LESIONS, OVER 4 10/06/20 24 Next Appt Details Follow Up: 3 Months, Reason: Provider Name:Darline Graff , 05/01/2025 02:15:00 PM, [address] [place] [address], [place], [address], Procedure Notes * Category Sub-Category Detail Notes [...] use of a nail nipper and/or dremel-type magnetic grinder operator, to a more viable healthy nail plate [...] to maintain effectiveness in symptomatic relief - 97418 Keratoma Treatment Parring or Cutting o f [...] instrumentation by the physician of record - 41140 Progress Notes * Abraham VERADOB: [birth year] (74 yo M)Acc No.[id number]:10/06/2024 Progress Note Patient:?Abraham VERA Provider:?Darline Graff DPM :1950???Age:74 Y???Sex:Male Beau e:10/06/2024 Address:[address] [place] [address], [place] Pcp:Louis Elizabeth MD Subjective: * Chief Complaints: [...] you an other tobacco user??No * Medications:?TakingBag [place] Fish Oil hydroCHLOROthiazide Lisinopril 40 MG Tablet Orally Metoprolol Tartrate Omeprazole Simvastatin Vitamin D (Cholecalciferol) zzzCompression Stockings 20-30mm Hg 1 pair closed toe- knee high . . . Amiodarone HCl 200 MG Tablet Orally Hydrocortisone 2.5 % Cream as directed Externally to feet Twice a day amLODIPine Besylate 5 MG Tablet Orally Metoprolol & Diet Manage Prod Vitamin E PriLOSEC Zestril Taking Bag [place] Taking Fish Oil Taking hydroCHLOROthiazide Taking Lisinopril [...] E10.42 (Primary)??? Plan: * Treatment: 2.?Tinea unguium?Procedure: 57724-KKNBDUE NAIL, 6 OR MORE * Procedures:?Debride Nail [...] use of a nail nipper and/or dremel-type magnetic grinder operator, to a more viable healthy nail plate [...] to maintain effectiveness in symptomatic relief - 16598.?Keratoma Treatment:?Parring or Cutting of Benign Hyperkeratotic Lesion(s)?(-57) [...] instrumentation by the physician of record - 56559.? * Procedure Codes:?33619 DEBRI DE NAIL, 6 OR MORE, Modifiers: XS 39032 TRIM SKIN LESIONS, OVER 4, Modifiers: XS [...] DPM Date:?2023 Generated for J Carlos palacio/Cornell/eTransmitting on:?02/10/2025 07:46 AM EDT History and Physical Notes * [...]
--- OUTSIDE RECORDS SUMMARY | 2025-02-10 07:47 | XMS_ITS ---
Author Organization [facility] Address [address] [facility] [place] [address] Care Team Providers Care Spanish Lecturer Name Role Phone Louis Elizabeth MD Primary Care Provider Unavaila ble Black, Darline Unavailable [phone] Allergies No Known Allergies REASON FOR VISIT [...] Amiodarone HCl 200 MG Orally Not-Taking Bag [place] Active HumaLOG Active Social History Tobacco Use: [...] Ordered Date Performed Result Body Sit e 25381-FATWFTR NAIL, 6 OR MORE 06/30/2024 N/A 71964-Aqoojcfq Plate 06/30/2024 N/A 30870-STJE SKIN LESIONS, OVER 4 06/30/2024 N/A Encounters Encounter Location Date Provider Diagnosis [facility] [place] [address] [place] [address] 06/30/2024 Darline Graff Type 1 diabetes mellitus [...] Treatment Pending Test Test Name Order Date 46144-PIGUQXW NAIL, 6 OR MORE 06/30/2024 32377-Dpgqxvyo Plate 06/30/2024 93797-RGOB SKIN LESIONS, OVER 4 06/30/20 24 Next Appt Details Follow Up: 2 Weeks, Reason: Provider Name:Darline Graff , 05/01/2025 02:15:00 PM, [address] [place] [address], [phone], Procedure Notes * Category Sub-Category Detail Notes [...] Motrin was recommended for pain or discomfort (53797) , DIABETES: Matricectomy deferred at this time [...] use of a nail nipper and/or dremel-type crystal flat grinder, to a more viable healthy nail plate or bed tissue 6-10. Silver nitrate used for any petechial bleeding as necessary. Definitive antifungal treatment options have been reviewed and discussed with the patient. The patient chooses, no pharmaceutical tx - 54053 Keratoma Treatment Parring or Cutting o f Benign Hyperkeratotic Lesion(s) 45747 ( >4 Lesions) - The Benign hyperkeratotic lesions, as described above were pared, and/or cut utilizing a sterile #15 blade, tissue nippers, and/or dremel Progress Notes * Abraham VERADOB: [birth year] (73 yo M)Acc No.[id number]:06/30/2024 Progress Note Patient:?[place] Abraham Davidson Provider:?Darline Graff DPM :1950???Age:73 Y???Sex:Male Beau e:06/30/2024 Address:[address] [place] [address], [place], [facility] Pcp:Louis Elizabeth MD Subjective: * Chief Complaints: [...] ?Marital status: . ?Occupation: Retired. * Medications:?TakingBag [place] Fish Oil hydroCHLOROthiazide HumaLOG Lisinopril 40 MG Tablet Orally Metoprolol Tartrate Omeprazole Simvastatin Vitamin D (Cholecalciferol) zzzCompression Stockings 20-30mm Hg 1 pair closed toe- knee high . . .Taking Bag [place] Taking Fish Oil Taking hydroCHLOROthiazide Taking HumaLOG [...] - L60.0? Plan: * Treatment: 2.?Tinea unguium?Procedure: 50189-MOCFQJC NAIL, 6 OR MORE 3.?Ingrown nail?Procedure: 56828-Quidagmc Plate * Procedures:?Debride Nail 6-10:?Nail debridement?Performance of this nail treatment by a nonprofessional would put this patients foot and overall health at risk. Therefore, nail debridement was performed extensively to reduce/remove overall nail length, girth, thickness, subungual debris, and necrotic tissue, by manual and/or electrical means through the use of a nail nipper and/or dremel-type crystal flat grinder, to a more viable healthy nail plate or bed tissue 6-10. Silver nitrate used for any petechial bleeding as necessary. Definitive antifungal treatment options have been reviewed and discussed with the patient. The patient chooses, no pharmaceutical tx - 07956.?Keratoma Treatment:?Parring or Cutting of Benign Hyperkeratotic Lesion(s)?54578 ( >4 Lesions) - The Benign hyperkeratotic [...] Motrin was recommended for pain or discomfort (01501) , DIABETES: Matricectomy deferred at this time due to diabetes risk.? * Procedure Codes:?85979 DEBRI DE NAIL, 6 OR MORE, Modifiers: XS 95187 Avulsion Plate, Modifiers: T6 52539 TRIM SKIN LESIONS, OVER 4, Modifiers: XS * Follow Up:?2 Weeks * Images: * Sign off status: Completed true * Provider:?Darline Graff DPM Date:?2023 Generated for J Carlos palacio/Cornell/eTandrewsmitting on:?02/10/2025 07:46 AM EDT History and Physical [...]
--- OUTSIDE RECORDS SUMMARY | 2025-02-10 07:47 | XMS_ITS ---
Author Organization [facility] Address [address] [facility] [place] [address] Care Team Providers Care Pharmaceutical Representative Name Role Phone Louis Elizabeth MD Primary Care Provider Unavaila ble Black, Darline Unavailable [phone] Allergies No Known Allergies REASON FOR VISIT [...] Simvastatin Active Vitamin D (Cholecalciferol) Active Bag [place] Active Fish Oil Active hydroCHLOROthiazide Active Microzide [...] Ordered Date Performed Result Body Sit e 02881-GNENVQI NAIL, 6 OR MORE 01/12/2025 N/A 62030-ZKNV SKIN LESIONS, OVER 4 01/12/2025 N/A Encounters Encounter Location Date Provider Diagnosis [facility] [address] [address] 01/12/2025 Darline Graff Type 1 diabetes mellitus with diabetic polyneuropathy E10.42 and Tinea unguium B35.1 Assessments Encounter Date Diagnosis (ICD Code) Assessment Notes Treatment Notes Treatment Clinical Notes Section Notes 01/12/2025 Type 1 diabetes mellitus with diabetic polyneuropathy (ICD-10 - E10.42) 01/12/2025 Tinea unguium (ICD-10 - B35.1) Plan Of Treatment Pending Test Test Name Order Date 45977-NWNNHAT NAIL, 6 OR MORE 01/12/2025 41492-XROT SKIN LESIONS, OVER 4 01/13/20 25 Next Appt Details Follow Up: 3 Months, Reason: Provider Name:Darline Graff , 05/01/2025 02:15:00 PM, [address] [place] [address], [phone], Procedure Notes * Category Sub-Category Detail Notes [...] use of a nail nipper and/or dremel-type universal grinder set up operator, to a more viable healthy nail [...] to maintain effectiveness in symptomatic relief - 93696 Keratoma Treatment Parring or Cutting o f [...] instrumentation by the physician of record - 03508 Progress Notes * Abraham VERADOB: [birth year] (74 yo M)Acc No.[id number]:01/12/2025 Progress Note Patient:?Abraham VERA Provider:?Darline Graff DPM :1950???Age:74 Y???Sex:Male Beau e:01/12/2025 Address:[address] [place] [address], [id number] Pcp:Louis Elizabeth MD Subjective: * Chief Complaints: [...] ?Marital status: . ?Occupation: Retired. * Medications:?TakingBag [place] Fish Oil hydroCHLOROthiazide Lisinopril 40 MG Tablet Orally Metoprolol Tartrate Omeprazole Simvastatin Vitamin D (Cholecalciferol) zzzCompression Stockings 20-30mm Hg 1 pair closed toe- knee high . . . Amiodarone HCl 200 MG Tablet Orally Hydrocortisone 2.5 % Cream as directed Externally to feet Twice a day amLODIPine Besylate 5 MG Tablet Orally Metoprolol & Diet Manage Prod Vitamin E PriLOSEC Zestril Taking Bag [place] Taking Fish Oil Taking hydroCHLOROthiazide Taking Lisinopril [...] - B35.1??? Plan: * Treatment: 2.?Tinea unguium?Procedure: 23068-EYVZOYB NAIL, 6 OR MORE * Procedures:?Debride Nail [...] use of a nail nipper and/or dremel-type universal grinder set up operator, to a more viable healthy nail [...] to maintain effectiveness in symptomatic relief - 67694.?Keratoma Treatment:?Parring or Cutting of Benign Hyperkeratotic Lesion(s)?(-57) [...] instrumentation by the physician of record - 99440.? * Procedure Codes:?45556 DEBRI DE NAIL, 6 OR MORE, Modifiers: XS 98449 TRIM SKIN LESIONS, OVER 4, Modifiers: XS * Preventive Medicine:? ??Screening/Special Tests:?Fall Risk?Screening:?No falls in the past year ?FALLS: Screening for Future Fall Risk?Have you had any falls with injury in the past year??No * Follow Up:?3 Months * Images: * Sign off status: Completed true * Provider:?Darline Graff DPM Date:?2024 Generated for J Carlos palacio/Cornell/eTransmitting on:?02/10/2025 07:47 AM EDT History and Physical Notes * [...]
--- OUTSIDE RECORDS SUMMARY | 2025-02-10 07:47 | XMS_ITS | Patient Health Record ---
Author Organization [facility] Address [address] [facility] [place] [address] Care Team Providers Care Bilingual Operator Name Role Phone Louis Elizabeth MD Primary Care Provider Darline Ricks Unavailable [phone] Allergies No Known Allergies Results Component Value [...] Notes Start Date End Date Status Bag [place] Active amLODIPine Besylate 5 MG Orally Active [...] Immunizations Vaccine Route Administration Date Status [facility]me [facility] Moderna Vaccine Unknown 01/24/2021 Administere d 1st [...] Problem Acquired hammer toe of right foot (9402510811392813 ) Other hammer toe(s) (acquired), right foot (M20.41) Active confirmed Problem Acquired hammer toe of left foot (5306348278772067 ) Other hammer toe(s) (acquired), left foot (M20.42) Active confirmed Problem Polyneuropathy due to diabetes mellitus type I (911535515) Type 1 diabetes mellitus with diabetic polyneuropathy (E10.42) Active confirmed Problem 91319890 Essential hypertension (I10) Active confirmed Vital Signs Blood pressure diastolic 80 mm Hg 01/12/2025 Height 5ft10.5in in 01/12/2025 Blood pressure systolic 125 mm Hg 01/12/2025 Weight 220 lbs 01/12/2025 BMI 31.12 kg/m2 01/12/2025 Procedures Procedure Date Ordered Date Performed Result Body Sit e 05094-RDUGGHA NAIL, 6 OR MORE 03/07/2024 N/A 42253-Lponnbmr Plate 03/07/2024 N/A 86788-Qxtvteew Plate Each Additional 03/07/2024 N/A 03315-YNBZ SKIN LESIONS, OVER 4 03/07/2024 N/A 69533-PVCNFPO NAIL, 6 OR MORE 06/30/2024 N/A 69187-Nanndyaw Plate 06/30/2024 N/A 74903-LFBN SKIN LESIONS, OVER 4 06/30/2024 N/A 80509-BLCUROM NAIL, 6 OR MORE 10/06/2024 N/A 16748-XCIT SKIN LESIONS, OVER 4 10/06/2024 N/A 83332-TOKUROL NAIL, 6 OR MORE 01/12/2025 N/A 66603-DLMF SKIN LESIONS, OVER 4 01/12/2025 N/A Encounters Encounter Location Date Provider Diagnosis [address] [address] 03/07/2024 Darline Black Type 1 diabetes mellitus with diabetic polyneuropathy E10.42 ; Tinea unguium B35.1 and Ingrown nail L60.[address] [address] 06/30/2024 Darline Black Type 1 diabetes mellitus with diabetic polyneuropathy E10.42 ; Tinea unguium B35.1 and Ingrown nail L60.[address] [address] 10/06/2024 Darline Black Type 1 diabetes mellitus with diabetic polyneuropathy E10.42 and Tinea unguium B35.[address] [address] 01/12/2025 Darline Black Type 1 diabetes mellitus [...] Treatment Pending Test Test Name Order Date 78634-ZRHKYVR NAIL, 6 OR MORE 10/10/2015 23985-OBQFRVT NAIL, 6 OR MORE 01/09/2016 33104-EEWKYQZ NAIL, 6 OR MORE 04/09/2016 79868-OMGCWSJ NAIL, 6 OR MORE 07/16/2016 06401-EGMNGTS NAIL, 6 OR MORE 10/30/2016 67984-PTUQNDH NAIL, 6 OR MORE 01/29/2017 34191-SRLPGCJ NAIL, 6 OR MORE 05/11/2017 29376-OQVDVTC NAIL, 6 OR MORE 08/10/2017 40435-LMXIHVA NAIL, 6 OR MORE 11/19/2017 37944-XSWJEMT NAIL, 6 OR MORE 02/18/2018 16558-HIQLYXG NAIL, 6 OR MORE 05/20/2018 65383-VMNZGIL NAIL, 6 OR MORE 08/19/2018 93138-SAIOQLG NAIL, 6 OR MORE 11/22/2018 99790-JZPMFHE NAIL, 6 OR MORE 02/03/2019 33079-BVWCPJD NAIL, 6 OR MORE 05/09/2019 87034-KEXXZIY NAIL, 6 OR MORE 08/11/2019 87725-MCYPSTO NAIL, 6 OR MORE 11/17/2019 62963-OFRXQUF NAIL, 6 OR MORE 02/20/2020 27659-LAMTLDP NAIL, 6 OR MORE 05/21/2020 78997-BMVSSTK NAIL, 6 OR MORE 08/23/2020 42594-GBQBCQG NAIL, 6 OR MORE 12/03/2020 47021-CDIJXPD NAIL, 6 OR MORE 03/04/2021 50887-WJLNZYH NAIL, 6 OR MORE 06/10/2021 84882-GIQUODV NAIL, 6 OR MORE 09/16/2021 53346-RYDYYGX NAIL, 6 OR MORE 01/06/2022 37966-CBSRTCS NAIL, 6 OR MORE 04/10/2022 11936-YRYKRXZ NAIL, 6 OR MORE 07/14/2022 48190-NUWFTLO NAIL, 6 OR MORE 11/03/2022 52550-NQUVHWZ NAIL, 6 OR MORE 02/23/2023 86089-TROUOHY NAIL, 6 OR MORE 06/08/2023 65341-VOFKBXK NAIL, 6 OR MORE 08/31/2023 85182-MPNCVVK NAIL, 6 OR MORE 12/07/2023 42618-DANEODJ NAIL, 6 OR MORE 03/07/2024 66297-BJEEOVI NAIL, 6 OR MORE 06/30/2024 76332-BRKAEIX NAIL, 6 OR MORE 10/06/2024 39217-UULCXNG NAIL, 6 OR MORE 01/12/2025 25801-Oyku Destruction, 1-14 11/03/2022 93397-Zowa Destruction, 1-14 02/23/2023 51278-Rbsfqntu Plate 02/23/2023 93940-Ixsgevbe Plate 01/06/2022 37552-Nihuknbz Plate 07/14/2022 26831-Lbwspljv Plate 04/10/2022 89088-Mehjipkc Plate 06/30/2024 00115-Maczkbmf Plate 03/07/2024 92834-Hjtfyshi Plate 06/08/2023 67034-Zonbiqlc Plate 09/16/2021 42354-Ackybjwc Plate 06/10/2021 56654-Vksizfko Plate 12/03/2020 52796-Chuzqxlv Plate 05/09/2019 63396-Wjvgigvc Plate 10/10/2015 30154-Zrkzxbwl Plate 01/29/2017 62746-Gdepdrrg Plate 10/30/2016 87018-Kaxplvem Plate 07/16/2016 08809-Bvfhqltt Plate 04/09/2016 12424-Tfsqrchu Plate 01/09/2016 26378-Intsaxki Plate Each Additional 41843-Xremxfxs Plate Each Additional 42643-Jvijweuu Plate Each Additional 66112-Quinvkgw Plate Each Additional 02/2017 10478-Tuwycmot Plate Each Additional 03/2017 79461-Umzgbusn Plate Each Additional 65729-Atqzkqqr Plate Each Additional 05/2021 22489-Phzuhhbl Plate Each Additional 33191-Fbpzybua Plate Each Additional 15347-Ejivmdzu Plate Each Additional 21897-Exshpixh Plate Each Additional 10/2022 38425-XYYU SKIN LESIONS, OVER 4 02/24/20 91198-CXJA SKIN LESIONS, OVER 4 06/08/20 17068-XGTH SKIN LESIONS, OVER 4 04/10/20 55377-WQFV SKIN LESIONS, OVER 4 07/14/20 38570-INJE SKIN LESIONS, OVER 4 11/03/19 84885-PVBN SKIN LESIONS, OVER 4 03/07/20 05603-BBUG SKIN LESIONS, OVER 4 12/07/19 52791-SPSM SKIN LESIONS, OVER 4 08/31/20 22851-GWOA SKIN LESIONS, OVER 4 06/30/20 93178-UUIW SKIN LESIONS, OVER 4 10/06/20 59413-WBLU SKIN LESIONS, OVER 4 01/13/20 34429-OTJZ SKIN LESIONS, OVER 4 09/16/20 88246-GPNU SKIN LESIONS, OVER 4 06/10/20 50341-EKSK SKIN LESIONS, OVER 4 02/20/20 20 27723-TWMY SKIN LESIONS, OVER 4 01/07/20 95253-PWGS SKIN LESIONS, OVER 4 03/04/20 84867-QZGF SKIN LESIONS, OVER 4 12/03/19 21 43625-DYED SKIN LESIONS, OVER 4 08/11/20 19 85015-PFWW SKIN LESIONS, OVER 4 05/09/20 19 85752-RJFE SKIN LESIONS, OVER 4 02/04/20 19 69356-GQWH SKIN LESIONS, OVER 4 11/22/19 19 70380-ZBPQ SKIN LESIONS, OVER 4 08/23/20 20 22196-OWBQ SKIN LESIONS, OVER 4 05/21/20 20 44106-BIAB SKIN LESIONS, OVER 4 11/17/19 20 24102-TMUK SKIN LESIONS, OVER 4 10/10/20 15 89082-XPEN SKIN LESIONS, OVER 4 08/10/20 17 82610-CNFD SKIN LESIONS, OVER 4 01/30/20 21350-OZOM SKIN LESIONS, OVER 4 05/11/20 20811-ANSC SKIN LESIONS, OVER 4 08/19/20 18 41065-UFWV SKIN LESIONS, OVER 4 05/20/20 18 61373-KINJ SKIN LESIONS, OVER 4 02/19/20 18 04900-IFAR SKIN LESIONS, OVER 4 11/19/19 18 14295-IFFH SKIN LESIONS, OVER 4 10/30/19 17 02346-NQLZ SKIN LESIONS, OVER 4 07/16/20 16 18529-GKDM SKIN LESIONS, OVER 4 04/09/20 16 05184-LLSD SKIN LESIONS, OVER 4 01/09/20 16 03313-Bsdb. Subungual Hematoma 0 HEMOGLOBIN A1C (GLYCOHEMOGLOBIN) 020 Next Appt Details Provider Name:Darline Graff , 05/01/2025 02:15:00 PM, [address] [place], [address], Insurance Providers Payer Name Payer Address Payer Phone Subscriber Number Group Number Insured Name Patient Relationship to Insured Coverage Start Date Coverage End Date Medicare National [employer] [address] [facility] [place] [address] [id number] Abraham Vera Self - patient is the insured [facility] [address] [place] [address] [id number] Abraham Vera Self - patient is the insured Medical (General) History Medical History History ICD Code diabetes high blood pressure measles mumps chicken pox Bleeding ulcer Cataracts Surgical History Surgery Date(Month/Year) rotator cuff surgery 2000 Heart Catheterization 09/2020 carpal tunnel 01/2023 Hospitalization History Reason Date(Month/Year) [facility]- Cardioversion- afib 11/22/20
== END ==
LOC: HO.CARD 07:44
PROVIDERS: Visit Provider Internal Medicine
DX: I25.10 Atherosclerotic heart disease of native coronary artery without angina pectoris (principal)
CPT/HCPCS: 93306; Q9957

== ENCOUNTER → 2025-02-10 07:47 | Outpatient (BNV) | payer MEDICARE, OTHER, SELFPAY | PROVIDERS: Visit Provider Internal Medicine Cardiovascular Disease | DX: I35.0 Nonrheumatic aortic (valve) stenosis (principal); I34.81 Nonrheumatic mitral (valve) annulus calcification; I34.0 Nonrheumatic mitral (valve) insufficiency | CPT/HCPCS: 93306 ==

== ENCOUNTER 2025-03-24 10:14 | Outpatient (AMB) | payer MEDICARE, OTHER, SELFPAY ==
[2025-03-24 10:09] VITALS: BP 136/74; PULSE 50; TEMP 36.2; O2SAT 98; BMI 32.4
--- NOTE | 2025-03-24 10:09 | MHC.PC.OV ---
Vital Signs 03/24/25 10:09 Height 5 ft 11 in Weight 232 lb BMI 32.4 BP 136/74 Blood Pressure Location Lt brachial Position Sitting Pulse 50 Pulse Source Pulse Oximeter Temp 97.1 F Temp Source Axillary Pulse Oximetry (%) 98 Oxygen Delivery Method Room Air Intake Visit Reasons: routine Management Consultant Required: No Accompanied by: Self / Same As Patient Allergies No Known Allergies [No Known Allergies*] Allergy (Verified 03/24/25 10:09) Medication List - Last Reconciled 03/24/25 by Ольга Matt MD blood-glucose sensor (Dexcom G6 Sensor device) blood-glucose transmitter (Dexcom G6 Transmitter device) As directed cholecalciferol (vitamin D3) PO glucagon 3 mg/actuation (Baqsimi) 3 mg intranasal ONCE PRN hydrochlorothiazide 25 mg PO DAILY insulin lispro-aabc (Lyumjev U-100 Insulin) subcut [insulin pump-infus. set-meter pt has own insulin pump unknown basal rate/ changes cartridge every other day] lisinopril 40 mg PO DAILY metoprolol tartrate 25 mg See Protocol PO BID omega-3 fatty acids 500 mg PO DAILY pantoprazole 40 mg PO DAILY simvastatin 40 mg PO BEDTIME Tobacco use date assessed: 03/24/25 Fall risk assessment: No Falls in past year Last assessed Fall Risk: 03/24/25 Dental Screening Dental Screen Date: 03/24/25 Did you have a dental visit in the last 12 months?: Yes Did you have a dental problem in the last 6 months where you did not have access to dental care?: No HPI HPI Comments History of Present Illness Details Abraham is a74 year old male with a past medical history of afib, dCHF, hypertension, hyperlipidemia, IDDM, CKD, BPH, colon polyps, PUD presenting for follow up. Last seen by pcp in November IDDM: on insuliln pump. 6.5 11/2024. Follows at [facility] for diabetes center. CV: Follows with [facility] cardiology. On metoprolol, hctz, lisinopril, simvastatin Colonoscopy 06/2021 dilip, colonoscopy at [facility] about 9 months ago Transferring to PCP in [facility] ROS CONSTITUTIONAL: Denies weight loss, fever and chills. HEENT: Denies changes in vision and hearing. RESPIRATORY: Denies SOB and cough. CV: Denies palpitations and CP GI: Denies abdominal pain, nausea, vomiting and diarrhea. : Denies dysuria and urinary frequency. MSK: Denies new myalgia and joint pain. SKIN: Denies rash and pruritus. NEUROLOGICAL: Denies headache PSYCHIATRIC: Denies recent changes in mood. PHYSICAL EXAM: GENERAL: Alert and oriented x 3. NAD EYES: EOMI. Anicteric. HENT: Moist mucous membranes. No scleral icterus. No cervical lymphadenopathy. LUNGS: Clear to auscultation bilaterally. CARDIOVASCULAR: Regular rate and rhythm. No murmur. No JVD. ABDOMEN: Soft, non-tender +bs EXTREMITIES: No edema. Non-tender. SKIN: No rashes or lesions. Warm. NEUROLOGIC: No focal neurological deficits. CN II-XII grossly intact PSYCHIATRIC: Cooperative. Appropriate mood and affect [facility] Medical History Esophageal ulcer SVT (supraventricular tachycardia) Elevated cholesterol Diabetes Essential hypertension Sinus bradycardia Paroxysmal atrial flutter Surgical History Hx of hand surgery H/O colonoscopy Hx of shoulder surgery Hx of hernia repair Hx of left inguinal hernia repair History of cardiac radiofrequency ablation (RFA) (~11/22/20) History of cardioversion (~11/2018) Family History Father Colon cancer Mother Colon cancer Social History Household Members: Spouse Housing: House Alcohol intake: never Patient Tobacco Use Status: Former Tobacco user Tobacco use type: Cigarette e-Cigarette/Vaping Use: Former Use service: No Current occupational status: retired Cognitive needs: No Hearing needs: No Vision needs: Yes (reading glasses) Questionnaire PHQ-9 Over the last 2 weeks, how often have you been bothered by any of the following problems? 1. Little interest or pleasure in doing things: not at all 2. Feeling down, depressed, or hopeless: not at all 3. Trouble falling or staying asleep, or sleeping too much: not at all 4. Feeling tired or having little energy: not at all 5. Poor appetite or overeating: not at all 6. Feeling bad about yourself - or that you are a failure or have let yourself or your family down: not at all 7. Trouble concentrating on things, such as reading the newspaper or watching television: not at all 8. Moving or speaking so slowly that other people could have noticed. Or the opposite - being so fidgety or restless that you have been moving around a lot more than usual: not at all 9. Thoughts that you would be better off or of hurting yourself in some way: not at all Total score: 0 Depression Screening Interpretation: Negative Depression Screening Done: Yes 86194 - PHQ-9 Billing: Yes Source: Developed by Drs. Girma Villafana, Kelly Hampton, Mihir Penn and colleagues, with an educational cody from [employer]. Thrive Questionnaire Date Thrive assessed: 03/24/25 I am a: Patient Within the past 12 months, did the food you bought not last and you didn't have the money to get more?: Never true Within the past 12 months, did you worry whether your food would run out before you got money to buy more?: Never true Do you have trouble paying for medicines?: No Do you have trouble getting transportation to medical appointments?: No Do you have trouble paying your heating and electricity bill?: No Do you have trouble taking care of your child, family member or friend?: No Do you have trouble with day-to-day activities such as bathing, preparing meals, shopping, managing finances, etc.?: No Are you currently unemployed and looking for a job?: No Are you interested in more education?: No THRIVE Score: 0 AUDIT C Alcohol Use Questionnaire (AUDIT-C) 1. How often do you have a drink containing alcohol?: Monthly or less 2. How many drinks containing alcohol do you have on a typical day when you are drinking?: 1 or 2 3. How often do you have six or more drinks on one occasion?: Less than monthly Total Score: 2 RAHUL-7 AMB Questionnaire RAHUL-7 Date RAHUL - 7 assessed: 03/24/25 Feeling nervous, anxious, or on edge: 0 = Not at all Not being able to stop or control worryin = Not at all Worrying too much about different things: 0 = Not at all Trouble relaxin = Not at all Being so restless that it is hard to sit still: 0 = Not at all Becoming easily annoyed or irritable: 0 = Not at all Feeling afraid as if something awful might happen: 0 = Not at all Total RAHUL-7 score (0-4 normal; 5-9 mild; 10-14 moderate; 15-21 severe): 0 Source: Developed by Drs. Girma Villafana, Kelly Hampton, Mihir Penn and colleagues, with an educational cody from [employer]. Physical exam (Primary Care) Vital Signs: Last Vital Signs Temp 97.1 F 03/24/25 10:09 Pulse 50 03/24/25 10:09 BP 136/74 03/24/25 10:09 Pulse Ox 98 03/24/25 10:09 Oxygen Delivery Method Room Air 03/24/25 10:09 BMI result Body Mass Index 32.4 Tobacco/Smoking Status: Tobacco use Status Tobacco use date assessed 03/24/25 03/24/25 10:10 Patient Tobacco Use Status Former Tobacco user 03/24/25 10:10 Tobacco use type Cigarette 03/24/25 10:10 e-Cigarette/Vaping Use Former Use 03/24/25 10:27 PHQ-9: PHQ-9 Score PHQ-9: Total score 0 03/25/25 10:05 Depression Screening Interpretation: Negative Thrive Assessment: Date of Thrive Assessment Date Thrive assessed 03/24/25 03/24/25 10:10 Coding Level of Care Code New Pt Level 4 (42410) Complex EM visit Add On G2211 Diagnoses PAF (paroxysmal atrial fibrillation) I48.0 Type 2 diabetes mellitus without complication, without long-term current use of insulin E11.9 Diabetes mellitus complication status: without complication Diabetes mellitus shelter insulin use: without shelter use Diabetes mellitus type: type 2 Atrial flutter with rapid ventricular response I48.92 Additional Codes PHQ-9 - 34874 - PHQ-9 Billing: Yes ([id number]) Assessment & Plan Assessment & Plan (1) PAF (paroxysmal atrial fibrillation): Code(s): I48.0 - Paroxysmal atrial fibrillation Category: Medical (2) Diabetes: Code(s): E11.9 - Type 2 diabetes mellitus without complications Category: Medical Qualifiers: Diabetes mellitus complication status: without complication Diabetes mellitus terminal makeup operator insulin use: without shelter use Diabetes mellitus type: type 2 Qualified Code(s): E11.9 - Type 2 diabetes mellitus without complications (3) Atrial flutter with rapid ventricular response: Code(s): I48.92 - Unspecified atrial flutter Category: Medical Plan 74 yo for follow up Afib, htn-following with cardiology DM-follows with endocrinology. well controlled He is transferring care to [facility]. ADvise him to sign medical release Orders: Orders Vitamin B12 and Folate 03/24/25 D53.9 - Nutritional anemia, unspecified, E11.9 - Type 2 diabetes mellitus without complications, E78.5 - Hyperlipidemia, unspecified, I10 - Essential (primary) hypertension Complete Blood Count Auto Diff 03/24/25 D53.9 - Nutritional anemia, unspecified, E11.9 - Type 2 diabetes mellitus without complications, E78.5 - Hyperlipidemia, unspecified, I10 - Essential (primary) hypertension Comprehensive Met. Panel 03/24/25 D53.9 - Nutritional anemia, unspecified, E11.9 - Type 2 diabetes mellitus without complications, E78.5 - Hyperlipidemia, unspecified, I10 - Essential (primary) hypertension
--- OUTSIDE RECORDS SUMMARY | 2025-03-24 10:54 | XMS_ITS | Patient Health Record ---
Author Organization [facility] Address [address] [place] [id number] Care Team Providers Care Pharmacy Innovation Assistant Name Role Phone Louis Elizabeth MD Primary Care Provider Girma lOiva Unavailable [phone] Reason For Referral No Information Medications Medication [...] Problem Status W/U Status Risk Notes Problem [id number] Encounter for screening for malignant neoplasm of colon (Z12.11) Active confirmed Problem [id number] Preprocedural examination (Z01.818) Active confirmed Problem History of colon polyps (Z86.010) Active confirmed Problem [id number] Family history o f colon cancer (Z80.0) Active confirmed Problem 887815980 Hx of adenomatou s colonic polyps (Z86.010) Active confirmed Problem Diverticulosis of sigmoid colon (962540362) Diverticulosis of sigmoid colon (K57.30) Active confirmed Problem 369082390 Long-term (current) use of anticoagulants, INR goal 2.0-3.0 (Z79.01) Active confirmed Plan Of Treatment Future Test Test Name Order Date COLONOSCOPY 09/14/2013 COLONOSCOPY 02/01/2019 COLONOSCOPY 03/22/2021 Insurance Providers Payer Name Payer Address Payer Phone Subscriber Number Group Number Insured Name Patient Relationship to Insured Coverage Start Date Coverage End Date MED[place]ARE OF [place] [address] [place] [address] [id number] HAMLET YOUNG Self - patient is the insured [facility] [address] [place] [address] [phone] [id number] HAMLET YOUNG Self - patient is the insured Medical (General) History Medical History History ICD Code Denies MT,CVA,Lung disease,renal disease IDDM--on a pump Hypertension Urosepsis in Jun 2013 at [facility] 3 or 4 colonoscopies at [facility]-all neg for polyps--last one was before [...] cecum Afib with an ablation 10/2020 at [facility] -sees Dr. Teixeira Surgical History Surgery Date(Month/Year) rotator cuff tear repair 1999 hernia repair left inguinal 2018 hernia repair 2019
== END 2025-03-24 10:58 | disposition home or self-care (01) ==
LOC: HO.HMCHD 10:15
PROVIDERS: PCP Internal Medicine; Visit Provider Internal Medicine
DX: I48.0 Paroxysmal atrial fibrillation (principal); E11.9 Type 2 diabetes mellitus without complications; I48.92 Unspecified atrial flutter

== ENCOUNTER → 2025-03-24 10:14 | Outpatient (BNVA) | payer MEDICARE, OTHER, SELFPAY | PROVIDERS: PCP Internal Medicine; Visit Provider Internal Medicine | DX: I48.0 Paroxysmal atrial fibrillation (principal); I48.92 Unspecified atrial flutter; E11.22 Type 2 diabetes mellitus with diabetic chronic kidney disease; D53.9 Nutritional anemia, unspecified; I12.9 Hypertensive chronic kidney disease with stage 1 through stage 4 chronic kidney disease, or unspecified chronic kidney disease; E78.5 Hyperlipidemia, unspecified; N18.9 Chronic kidney disease, unspecified; N40.0 Benign prostatic hyperplasia without lower urinary tract symptoms; Z96.41 Presence of insulin pump (external) (internal); Z79.4 Long term (current) use of insulin | CPT/HCPCS: 96127; 99202 ==